=== PATIENT | female | born 1955 | race Caucasian/White ===

== ENCOUNTER 2019-08-22 18:16 | Emergency (ER) | payer MEDICARE, SELFPAY ==
[2019-08-22 18:20] VITALS: BP 138/85; PULSE 68; PULSE 69; RESP 14; TEMP 36.7; O2SAT 96; BMI 28.6
--- NOTE | 2019-08-22 18:55 | ED.VIS.GEN ---
History of Present Illness Chief Complaint: Abd Pain Informant: Patient Narrative: 64-year-old female presents with several weeks of nauseous feeling which is intermittent. Today she started having pain in her left lower flank which radiates down to the inguinal area. She has no history of kidney stones. She denies urinating frequency or dysuria. She denies hematuria. She has not been vomiting. She was seen at urgent care and sent here for evaluation. Past Medical History - Allergies and Home Meds Allergies/Adverse Reactions: Allergies fluoxetine Adverse Reaction (Verified 08/22/19 18:17) I SHAKE REAL BAD Primary Care Physician: Singh Baez DO [Primary Care Provider] - Matt Nunez MD [STAFF PHYSICIAN] - Prior records reviewed: Yes Lives: With Family Smoking Status: Unknown if ever smoked Alcohol: None Drugs: None Review of Systems General: Reports: Chills, Fever Eyes: Denies: Visual changes - bilaterally, Diplopia ENT: Denies: Rhinorrhea, Sore throat Cardiovascular: Denies: Chest pain, Palpitations Respiratory: Denies: Dyspnea, Cough, Dyspnea on exertion Gastrointestinal: Reports: Abdominal pain, Nausea. Denies: Diarrhea, Constipation Genitourinary: Denies: Dysuria, Hematuria, Frequency Musculoskeletal: Denies: Myalgias Skin: Denies: Rash Neurological: Denies: Headache Physical Exam Vital Signs/Narrative: Vital Signs Temp Pulse Resp BP Pulse Ox 08/22/19 18:20 98.0 F 69 14 138/85 H 96 General: Well nourished, Obese, No Acute Distress Head: Normocephalic, Atraumatic Eyes: Perrl, EOMI ENT: Moist mucous membranes Cardiovascular: Regular rate, Regular rhythm Respiratory: No distress, CTA bilaterally Abdomen: Soft, Tender - Mild tenderness to palpation left lower quadrant. Left-sided CVA tenderness as well. Back: CVA tenderness - Left Extremities: Nontender Skin: Normal color, No rash Neurological: Alert, Oriented x3 Psychological: Normal affect Diagnostic/Tx/Re-eval - Medical Decision Making Clinical Impression(s) from Imaging Studies Abdomen/Pelvis CT 08/22/19 21:25 IMPRESSION: 1. Mild left hydronephrosis and hydroureter secondary to a 4 mm stone in the proximal aspect of the left ureter. 2. Multiple additional left kidney stones 3. Colonic diverticulosis Electronically Signed: Andrei Santamaria MD at 22:17 EDT , Service support , Laboratory Data 08/22/19 08/22/19 08/22/19 19:17 19:17 19:25 WBC 8.2 RBC 4.90 Hgb 14.3 Hct 42.2 MCV 86.1 MCH 29.2 MCHC 33.9 RDW Std Deviation 40.5 RDW Coeff of Brenda 13.1 Plt Count 184 MPV 12.0 Immature Gran % (Auto) 0.200 Neut % (Auto) 48.2 Lymph % (Auto) 39.5 [place] % (Auto) 9.3 Eos % (Auto) 2.3 Baso % (Auto) 0.5 Absolute Neuts (auto) 3.9 Absolute Lymphs (auto) 3.22 Nucleated RBC % 0 Sodium 140 Potassium 3.3 L Chloride 106 Carbon Dioxide 30.0 Anion Gap 4 L BUN 17 Creatinine 0.90 Estim Creat Clear Calc 48.63 Est GFR (MDRD) Af Amer 80 Est GFR (MDRD) Non-Af 66 BUN/Creatinine Ratio 18.8 Glucose 85 Calcium 9.0 Urine Color Yellow Urine Clarity Clear Urine pH 6.0 Ur Specific [place] 1.020 Urine Protein Negative Urine Glucose (UA) Normal Urine Ketones Negative Urine Occult Blood 150 H Urine Nitrite Negative Urine Bilirubin Negative Urine Urobilinogen Normal Ur Leukocyte Esterase Negative Urine RBC 5-10 SEEN Urine WBC 0-5 SEEN Ur Squamous Epith Cells 0-5 SEEN Urine Bacteria RARE Urine Mucus 0 SEEN Presents with left flank pain. Her urinalysis is that she has hematuria. She has no sign of infection. Blood work is normal. CT abdomen pelvis without IV contrast shows ureteral stone. This will likely pass on its own. She is given Flomax, [place], Zofran for home. She was given urologist to follow-up with. She also was given strict return precautions. Patient amenable to discharge at this time. Pression: 1. 4 mm left ureteral stone 2. Hematuria 3. Left flank pain 4. Nausea ED Disposition - Plan for ED Patient: Disposition: Home or Assisted Living Diagnosis: Kidney stone on left side Instructions: ED Renal Stone w Colic Prescriptions: Tamsulosin HCl [Flomax] 0.4 mg PO DAILY #14 cap Prescription Printed Hydrocodone Bitart/Apap 5-325 [[place] 5MG-325MG] 1 tab PO Q6H PRN PRN 2 Days #12 tab PRN Reason: Pain Prescription Printed Ondansetron [Ondansetron Odt] 4 mg PO Q6H PRN PRN #14 tab.rapdis PRN Reason: Nausea Prescription Printed Referrals: Singh Baez DO [Primary Care Provider] - Matt Nunez MD [STAFF PHYSICIAN] -
[2019-08-22] MEDS: Ondansetron 4 MG/2 ML Vial IV (19:32)
[2019-08-22] MEDS: Morphine 4 MG/ML Syringe IV ×2 (19:32→20:45)
[2019-08-22 19:37] LABS: Absolute Lymphocyte Count 3.22 X10^3/uL (0.83-4.51); Absolute Neutrophil Count 3.9 X10^3/uL (2.0-7.7); Basophil# 0.04 X10^3/uL; Basophil% 0.5 % (0-1); Eosinophil# 0.19 X10^3/uL; Eosinophils% 2.3 % (0-5); Hematocrit 42.2 % (37-47); Hemoglobin 14.3 g/dL (12.0-15.0); Lymphocyte # 3.22 X10^3/ul (4.0); Lymphocyte % 39.5 % (19-41); Mean Corp Hgb Conc 33.9 g/dL (32-36); Mean Corpuscular Hgb 29.2 pg (27.0-32.0); Mean Corpuscular Volume 86.1 fL (81-99); Monocyte# 0.76 X10^3/uL; Monocyte% 9.3 % (0-10); NRBC Flagged by Analyzer 0 % (0-5); Neutrophil # 3.93 X10^3/uL (2.7-7.7); Neutrophil % 48.2 % (47-70); Platelet Count 184 K/mm3 (150-450); RBC Distribution Width CV 13.1 % (11.6-14.6); RBC Distribution Width SD 40.5 fl (35.1-43.9); White Blood Count 8.2 K/mm3 (4.4-11.0)
[2019-08-22 19:41] LABS: Mucous, Urine 0 SEEN /hpf (<or=2+)
[2019-08-22 19:54] LABS: Anion Gap 4 (5-15); BUN 17 mg/dL (7-18); BUN/Creat Ratio 18.8 RATIO (10-20); Chloride 106 mmol/L (98-107); EST Glomerular Filtration Rate 66 mL/min (>60); Est Glom Filt Rate - Afr Amer 80 mL/min (>60); Estimated Creatinine Clearance 48.63 ml/min; Glucose 85 mg/dL (74-106); Potassium 3.3 mmol/L (3.5-5.1); Sodium Level 140 mmol/L (136-145)
[2019-08-22 20:45] LABS: Color, Urine Yellow (Yellow); Glucose, Dipstick Normal (Normal); Ketone-Dipstick Negative (Negative); Leukocyte Esterase-Dipstick Negative /ul (Negative); Nitrite-Dipstick Negative (Negative); Occult Blood-Urine 150 /ul (Negative); Protein-Dipstick Negative (Negative); Urine Bilirubin Dipstick Negative (Negative); Urine Clarity Clear (Clear); Urine Urobilinogen Normal (Normal)
[2019-08-22 20:57] LABS: Bacteria RARE /hpf (None Seen); Red Blood Cells-Urine 5-10 SEEN /hpf (0-5); Squamous Epithelial Cells - UA 0-5 SEEN /hpf (5-10); White Blood Cells 0-5 SEEN /hpf (0-5)
--- NOTE | 2019-08-22 21:25 | CT_ITS ---
STUDY: CT ABDOMEN AND PELVIS WITHOUT CONTRAST REASON FOR EXAM: Female, 64 years old. LT FLANK PAIN RADIATING TO GROIN AND NAUSEA -- HX:HTN,HYPOTHYROID,APPENDECTOMY RADIATION DOSAGE (If Supplied By Facility): CTDIvol = ( 8.04 ) mGy, DLP = ( 409.93 ) mGycm TECHNIQUE: Transaxial images were obtained from the dome of the diaphragm to the symphysis pubis without oral contrast, and without intravenous contrast. Sagittal and coronal images were reconstructed. Individualized dose optimization techniques were used for this CT. COMPARISON: None. FINDINGS: There are chronic interstitial fibrotic changes of the lung bases. There is decreased attenuation of the liver consistent with steatosis. No intrahepatic biliary duct dilatation or liver mass. Normal gallbladder and extrahepatic biliary system. Normal spleen. Normal pancreas. Normal bilateral adrenal glands. Normal right kidney. Mild left hydronephrosis and hydroureter are present due to a 4 mm obstructing stone in the proximal aspect of the ureter located 5.6 cm distal to the UPJ. A 6 mm calyceal stone is present in the inferior pole of the left kidney adjacent to a 3 mm and 1 mm stone. A 1 mm punctate stone is present in the upper pole calyx of the left kidney. A 1 mm parenchymal stone is present in the medial aspect of the inferior pole of the left kidney. Normal visualized stomach. Normal small intestine. There are multiple colonic diverticula consistent with diverticulosis. No bowel dilatation or obstruction. No free air or free fluid. There is non-visualization of the appendix. There is diffuse atherosclerotic calcification of the abdominal aorta, without a demonstrated aneurysm. Normal inferior vena cava. Normal retroperitoneum. Normal urinary bladder. Normal abdominal wall. There are diffuse degenerative changes of the visualized lumbar spine. CT/Abdomen/Pelvis without Cont IMPRESSION: 1. Mild left hydronephrosis and hydroureter secondary to a 4 mm stone in the proximal aspect of the left ureter. 2. Multiple additional left kidney stones 3. Colonic diverticulosis Electronically Signed: Andrei Santamaria MD at 22:17 EDT , Service support ,
[2019-08-22 22:49] VITALS: BP 132/80; PULSE 82; RESP 16; O2SAT 99
== END 2019-08-22 22:49 | disposition home or self-care (01) ==
PROVIDERS: Emergency Provider Student in an Organized Health Care Education/Training Program; PCP Student in an Organized Health Care Education/Training Program
DX: N20.1 Calculus of ureter (principal); R31.9 Hematuria, unspecified; R10.9 Unspecified abdominal pain; R11.0 Nausea
CPT/HCPCS: 74176; 80048; 81001; 85025; 96374; 96375; 96376; 99284; A4216; J2405

== ENCOUNTER → 2019-12-23 15:16 | Outpatient (CLI) | payer MEDICARE, SELFPAY ==
--- NOTE | 2019-12-23 15:19 | CT_ITS ---
We are attempting to reach an attending provider to discuss findings. An addendum with communication details will be sent when the communication is complete. STUDY: CTA CHEST REASON FOR EXAM: Female, 64 years old. CP/RECENT COVID AND PNEUMONIA RADIATION DOSAGE (If Supplied By Facility): CTDIvol = ( 12.99 ) mGy, DLP = ( 430.82 ) mGycm TECHNIQUE: The examination was performed with the intravenous administration of IV 100ML ISOVUE 370. Post-processing of the angiographic images was performed, with multiplanar reformation and 3D reconstruction. Individualized dose optimization techniques were used for this CT. COMPARISON: None. FINDINGS: There are small segmental and subsegmental pulmonary emboli in the right middle and lower lobes. There are no additional pulmonary emboli. There is no evidence of thoracic aortic aneurysm or dissection. 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 There is subsegmental atelectasis noted in the lungs. There are no pulmonary infiltrates or pleural effusions. The central airways are patent. There is no pneumothorax. The heart and pericardium are within normal limits. There is no thoracic lymphadenopathy. There are no destructive osseous lesions. CT/CTA Chest W/WO Contrast IMPRESSION: Small segmental and subsegmental pulmonary emboli in the right middle and lower lobes. No additional pulmonary emboli. No evidence of thoracic aortic aneurysm or dissection. 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 If indicated, a dedicated CTA angiogram of the abdomen and pelvis can be performed. Subsegmental atelectasis in both lungs. No pulmonary infiltrates or pleural effusions. Electronically Signed: Marshall Donald, at 16:49 EST Tel , Service support ,
[2019-12-23 15:31] LABS: CREATININE FINGERSTICK 0.7 mg/dL (0.55-1.02)
== END ==
PROVIDERS: PCP Student in an Organized Health Care Education/Training Program; Referring Provider Nurse Practitioner Family; Visit Provider Nurse Practitioner Family
DX: R06.02 Shortness of breath (principal); R07.9 Chest pain, unspecified; Z86.19 Personal history of other infectious and parasitic diseases
CPT/HCPCS: 71275; Q9967

== ENCOUNTER 2019-12-23 17:54 | Emergency (ER) | payer MEDICARE, SELFPAY ==
[2019-12-23 17:55] VITALS: BP 161/85; PULSE 66; RESP 15; TEMP 36.3; O2SAT 96; BMI 27.6
[2019-12-23 17:57] VITALS: BP 161/85; PULSE 70; RESP 16; TEMP 36.3; O2SAT 97
--- NOTE | 2019-12-23 18:24 | EKG12_ITS ---
Test Reason : DYSRHYTHMIA Blood Pressure : / mmHG Vent. Rate : 062 BPM Atrial Rate : 062 BPM P-R Int : 140 ms QRS Dur : 092 ms QT Int : 408 ms P-R-T Axes : 037 015 038 degrees QTc Int : 414 ms Normal sinus rhythm Normal ECG Confirmed by DICK CORBIN, MERYL ([id number]), development editor SARAH GEE ([id number]) on 12/27/2019 8:47:00 AM Referred By: Usha Taylor Confirmed By:MERYL JENNINGS MD
--- NOTE | 2019-12-23 18:37 | ED.RN ---
no old ekgs in [facility]
[2019-12-23 18:43] LABS: Absolute Lymphocyte Count 2.98 X10^3/uL (0.83-4.51); Absolute Neutrophil Count 3.3 X10^3/uL (2.0-7.7); Basophil# 0.03 X10^3/uL; Basophil% 0.4 % (0-1); Eosinophil# 0.22 X10^3/uL; Hematocrit 45.1 % (37-47); Hemoglobin 15.1 g/dL (12.0-15.0); Lymphocyte # 2.98 X10^3/ul (4.0); Lymphocyte % 40.9 % (19-41); Mean Corp Hgb Conc 33.5 g/dL (32-36); Mean Corpuscular Hgb 28.9 pg (27.0-32.0); Mean Corpuscular Volume 86.2 fL (81-99); Mean Platelet Vol. 12.1 fl (6.2-12.0); Monocyte# 0.73 X10^3/uL; Neutrophil % 45.4 % (47-70); Platelet Count 230 K/mm3 (150-450); RBC Distribution Width SD 40.3 fl (35.1-43.9); Red Blood Count 5.23 M/mm3 (4.2-5.4); White Blood Count 7.3 K/mm3 (4.4-11.0)
[2019-12-23 18:44] LABS: NRBC Flagged by Analyzer 0 % (0-5)
[2019-12-23 18:52] LABS: Prothrombin Time (Protime)PT. 12.5 SECONDS (11.7-14.9)
[2019-12-23 18:53] LABS: Partial Thromboplast Time 22.3 Seconds (24.1-36.2)
[2019-12-23] MEDS: ALPRAZolam 0.5 MG Tablet PO (18:57)
--- NOTE | 2019-12-23 18:57 | ED.VISSUMM ---
- ER Visit Summary Date of Service: 12/23/19 Chief Complaint: Chest tightness History of Present Illness: The patient is a 64 F presents with chest tightness and shortness of breath that has been getting worse over the past several days. Patient had an outpatient CTA of the chest done today which showed small subsegmental pulmonary emboli in the right middle and right lower lobes. Patient admits to some pain in her left chest. Patient states nothing makes it better or worse. Patient also admits to some mild intermittent abdominal pain. Patient states her primary care physician referred her to the emergency department when he reviewed results of the CTA. CTA also shows that there is a 1.5 cm segment of possible dissection of the celiac artery. Physical Examination: Vital signs are stable. Patient is afebrile. Patient is in no acute distress. Oral mucosa is pink and moist. Neck is supple. Trachea is midline. There is no JVD. Heart was regular rate and rhythm. Lungs are clear and equal bilaterally. There is good respiratory effort noted. Abdomen is soft. Bowel sounds are normal. There is no tenderness. There is no rebound or guarding noted. Extremities are intact. There is no calf tenderness or edema. Test Results: EKG shows normal sinus rhythm with a rate of 62. There are no acute ST or T wave changes. CBC and comprehensive metabolic profile were within normal limits. Lipase was normal. PT with INR and PTT were normal. Troponin was normal. CTA of the abdomen pelvis was obtained. There is no evidence of arterial dissection specifically, the celiac artery. This was interpreted by the radiologist and reviewed by myself. Emergency Department Course and Treatment: Patient was feeling very anxious and was given a dose of Xanax here. Patient complained of a headache. Patient was given a dose of morphine. Patient was given a dose of Eliquis. Patient was also given a liter of IV fluids. Patient was given a prescription for Eliquis. Patient was instructed to follow-up with her primary care physician in 5 to 7 days. Patient understood and was agreeable with the plan. All questions were answered. Disposition: Discharge home Impression: Pulmonary embolism This note was generated with IM-Senseation software. It may contain incorrect words, spelling, and punctuation that were not noted in review of the chart prior to signing ED Disposition - Plan for ED Patient: Disposition: Home or Assisted Living Diagnosis: Pulmonary embolism Instructions: Pulmonary Embolism Prescriptions: Apixaban [Eliquis] 5 mg PO BID #74 tab Prescription Printed Referrals: Singh Baez DO [Primary Care Provider] - 5-7 Days
[2019-12-23 19:06] LABS: ALB/GLOB Ratio 0.9 RATIO (0.9-2.4); AST(SGOT) 19 U/L (15-37); Alanine Aminotransfer ALT/SGPT 34 U/L (13-56); Albumin, Serum 3.7 g/dL (3.2-5.0); Alkaline Phosphatase 108 U/L (45-117); Anion Gap 7 (5-15); BUN 15 mg/dL (7-18); BUN/Creat Ratio 15.4 RATIO (10-20); Calcium,Total 8.9 mg/dL (8.5-10.1); Chloride 104 mmol/L (98-107); Creatinine, Serum 0.97 mg/dL (0.55-1.02); EST Glomerular Filtration Rate 61 mL/min (>60); Est Glom Filt Rate - Afr Amer 74 mL/min (>60); Estimated Creatinine Clearance 45.12 ml/min; Globulin 4.1 g/dL (2.2-4.2); Glucose 116 mg/dL (74-106); Lipase 155 U/L (73-393); Potassium 3.5 mmol/L (3.5-5.1); Protein, Total 7.8 g/dL (6.4-8.2); Sodium Level 141 mmol/L (136-145)
[2019-12-23] MEDS: Morphine 2 MG/ML Syringe IV (19:26)
--- NOTE | 2019-12-23 19:38 | CT_ITS ---
STUDY: CTA ABDOMEN AND PELVIS WITHOUT CONTRAST REASON FOR EXAM: Female, 64 years old. Abnormal CTA chest. Question dissection of the celiac artery. RADIATION DOSAGE (If Supplied By Facility): CTDIvol = ( 20.86 ) mGy, DLP = ( 743.62 ) mGycm TECHNIQUE: Transaxial images were obtained through the abdomen and pelvis without oral contrast, and with intravenous contrast. Sagittal and coronal images were reconstructed. Individualized dose optimization techniques were used for this CT. COMPARISON: CTA of the chest dated 12/23/19 FINDINGS: The lung bases are clear. The heart is normal in size. There are no calcified gallstones present. The liver, spleen, pancreas, adrenal glands and kidneys are within normal limits. There is no bowel obstruction or inflammation. The patient is status post appendectomy. There is no abdominal or pelvic free air, free fluid or lymphadenopathy. There is no evidence of abdominal aortic aneurysm or dissection. The celiac artery is patent. There is no evidence of dissection. The superior mesenteric artery is patent. There is no evidence of dissection. The bilateral renal arteries are patent. There is no evidence of dissection. The inferior mesenteric artery is patent. There is no evidence of dissection. The bilateral common iliac arteries, internal iliac arteries, external iliac arteries and common femoral arteries are patent and normal in caliber. There are no destructive osseous lesions. CT/CT ANGIO ABD&PEL W/O&W/DYE IMPRESSION: Normal CT angiogram of the abdomen and pelvis. No evidence of celiac artery dissection as suggested on the earlier CT angiogram of the chest. The findings on the chest CT were likely artifactual in nature. No acute abdominal or pelvic pathology. Electronically Signed: Marshall Donald, at 20:24 EST Tel , Service support ,
[2019-12-23] MEDS: 0.9% Normal Saline 1,000 ML 999 ML IV (21:17)
[2019-12-23 21:18] VITALS: BP 119/60; PULSE 56; RESP 16; O2SAT 94
[2019-12-23] MEDS: APIXABAN 5 MG TABLET 10 MG PO (21:59)
[2019-12-23 22:18] VITALS: BP 124/77; PULSE 78; RESP 16; O2SAT 94
== END 2019-12-23 22:38 | disposition home or self-care (01) ==
PROVIDERS: Emergency Provider Emergency Medicine; PCP Student in an Organized Health Care Education/Training Program
DX: I26.99 Other pulmonary embolism without acute cor pulmonale (principal); R07.89 Other chest pain; R06.02 Shortness of breath; Z86.19 Personal history of other infectious and parasitic diseases
CPT/HCPCS: 71275; 74174; 80053; 83690; 84484; 85025; 85610; 85730; 93005; 96374; 99285; J7030; Q9967; A4216

== ENCOUNTER → 2019-12-27 14:54 | Outpatient (CLI) | payer MEDICARE, SELFPAY ==
[2019-12-23 17:55] VITALS: BMI 27.6
--- NOTE | 2019-12-27 14:58 | ECHOD_ITS ---
Reason For Study: SOB Procedure This was a 2D Doppler, Color Flow transthoracic echocardiogram. The study was technically difficult. Exam performed in department. Left Ventricle Normal LV size. Left ventricular systolic function is normal. The estimated ejection fraction is 65 %. No evidence for diastolic dysfunction. No regional wall motion abnormalities noted. Right Ventricle Normal RV size. Normal systolic function. Atria The left atrium is mildly enlarged. Normal right atrium. No doppler evidence for ASD. Mitral Valve There is no mitral annular calcification. Mild diffuse mitral valve thickening. Mild (1+) mitral valve insufficiency. Tricuspid Valve Normal tricuspid valve. Mild tricuspid valve insufficiency. Right ventricular systolic pressure estimated to be 31 mmHg. Aortic Valve Trisinus/trileaflet aortic valve. Normal aortic valve. Pulmonic Valve The pulmonic valve is not well visualized. Trivial pulmonic valve insufficiency. Great Vessels Normal sized aortic root. Pericardium/Pleural No pericardial effusion. MMode/2D Measurements & Calculations LVIDd: 4.0 cm IVSd: 1.2 cm Ao root diam: 2.9 cm LVIDs: 2.6 cm LVPWd: 1.2 cm RVDd: 3.4 cm FS: 33.6 % LAV(MOD-bp): 51.6 ml LA A4 area: 18.3 cm2 LA dimension(2D): 3.8 cm LAV(MOD-bp) Indexed: 30.4 ml/m2 LAV(MOD-sp2): 51.5 ml LAV(MOD-sp4): 51.5 ml RA A4 area: 14.4 cm2 Time Measurements MV dec time: 0.18 sec Doppler Measurements & Calculations MV E max julius: 88.3 cm/sec Lat Peak E' Julius: 11.5 cm/sec Med Peak E' Julius: 6.9 cm/sec MV A max julius: 75.1 cm/sec E/E' lat: 7.7 E/E' med: 12.8 MV E/A: 1.2 Ao V2 max: 118.8 cm/sec LV V1 max: 110.7 cm/sec PA V2 max: 101.0 cm/sec Ao max P.6 mmHg LV V1 max P.9 mmHg TR max julius: 263.6 cm/sec TR max P.8 mmHg Interpretation Summary The study was technically difficult. Left ventricular systolic function is normal. The estimated ejection fraction is 65 %. The left atrium is mildly enlarged. Mild diffuse mitral valve thickening. Mild (1+) mitral valve insufficiency. Mild tricuspid valve insufficiency. Trivial pulmonic valve insufficiency. Right ventricular systolic pressure estimated to be 31 mmHg. No evidence for diastolic dysfunction. Ordering Physician: Usha Taylor Referring Physician: Singh Baez Performed By: Sosa Landon RDCS, RVT
== END ==
PROVIDERS: PCP Student in an Organized Health Care Education/Training Program; Referring Provider Nurse Practitioner Family; Visit Provider Nurse Practitioner Family
DX: R07.9 Chest pain, unspecified (principal); R06.02 Shortness of breath
CPT/HCPCS: 93306

== ENCOUNTER 2023-02-16 20:39 | Emergency (ER) | payer MEDICARE, SELFPAY ==
[2023-02-16 20:40] VITALS: BP 173/75; PULSE 60; RESP 18; TEMP 36.4; O2SAT 98; BMI 28.0
--- OUTSIDE RECORDS SUMMARY | 2023-02-16 21:32 | XMS RPT_ITS | CCD ---
Author Name Unknown Address [address] [place] [address] Organization [facility] Care Team Providers Care Oceanographer Physical Name Role Phone DERIK MIMS Unavailable Unavailable BAEZ, SINGH Unavailable Unavailable BASIL STANLEY Admitting Unavailable BASIL STANLEY Attending Unavailable BASIL STANLEY Primary Care Unavailable BAEZ, SINGH DO Consulting Unavailable PROVIDER, UNKNOWN Consulting Unavailable Baez Singh MAURICIO Primary Care Provider Baez DOSingh Primary Care Provider Baez DO Singh Atif Primary Care Provider SCARLETT SHEEHAN Referring Unavailable BAEZ, SINGH L Primary Care Unavailable SCARLETT SHEEHAN Referring Unavailable BAEZ, SINGH Atif Primary Care Unavailable Baez DO, Singh tAif Primary Care Provider BELGICA ENRIQUEZ Referring Unavailable BAEZ, SINGH L Primary Care Unavailable BAEZ, SINGH L Primary Care Unavailable KAYLEE KUMARI Attending Unavailable KAYLEE KUMARI Referring Unavailable BAEZ, SINGH L Primary Care Unavailable BAEZ, SINGH L Primary Care Unavailable BAEZ, SINGH L Referring Unavailable BAEZ, SIGNH L Primary Care Unavailable BAEZ, SINGH L Attending Unavailable BAEZ, SINGH L Primary Care Unavailable BELGICA ENRIQUEZ Attending Unavailable BAEZ, SINGH L Primary Care Unavailable ERIKA SINHA Attending Unavailbaljit e BAEZ, SINGH L Primary Care Unavailable BAEZ, SINGH L Referring Unavailable BAEZ, SINGH L Primary Care Unavailable KAYLEE KUMARI Attending Unavailable BAEZ, SINGH L Primary Care Unavailable KAYLEE KUMARI Referring Unavailable BAEZ, SINGH L Primary Care Unavailable BAEZ, SINGH L Referring Unavailable BAEZ, SINGH L Primary Care Unavailable SINGH BAEZ Attending Unavailable BAEZSINGH Primary Care Unavailable MARGOTHVIRAJ Referring Unavailable BAEZSINGH L Primary Care Unavailable BAEZSINGH Primary Care Unavailable SINGH BAEZ Attending Unavailable BAEZSINGH Attending Unavailable BAEZSINGH Primary Care Unavailable KAYLEE KUMARI Referring Unavailable BAEZSINGH L Primary Care Unavailable BELGICA ENRIQUEZ Attending Unavailable BAEZSINGH Primary Care Unavailable SEDRICK SINHA II Attending Unavailabl e BAEZSINGH Primary Care Unavailable Allergies Allergy Classification Reported Allergen(s) Allergy Type Date of Onset Reaction(s) Facility (20 sources) FLUoxetine; Translations: [FLUOXETINE] Drug Allergy 0 Other: See Comments [facility] Work Phone: (20 sources) Seasonal allergy; Translations: [SEASONAL ALLERGIES] Allergy to substance Other: See Comments [facility] Medications Current Medications Medication Drug Class(es) Dates Sig (Normalized) Sig (Original) cyclobenzaprine hydrochloride 10 mg oral tablet (4 sources) Muscle Relaxant Start: 10-02-2021 End: 11-01-2021 take 1 tablet by mouth every eight hours as needed cyclobenzaprine (FLEXERIL) 10 mg tablet Take 1 tablet by mouth three times daily as needed for muscle spasm. 30 tablet 0 10/02/2021 11/01/2021 Active Completed/Discontinued Medications Medication Drug Class(es) Dates Sig (Normalized) Sig (Original) [id number] 200 actuat albuterol 0.09 mg/actuat metered dose inhaler (20 sources) beta2-Adrenergic Agonist Start: 02-09-2020 take 2 puff(s) by inhalation every four hours as needed for wheezing albuterol HFA (VENTOLIN HFA) 90 mcg/actuation inhaler Inhale 2 Puffs as instructed every 4 hours as needed for wheezing/shortnes s of breath. 8 g 2 05/17/2021 Active Problems Active Problems Problem Classification Problem Date Documented Date Episodic/Chronic Acute bronchitis (1 source) Acute bronchitis; Translations: [Acute bronchitis, unspecified] Episodic Anxiety disorders (20 sources) Anxiety; Translations: [Other specified anxiety disorders] Onset: 01-23-2021 01-23-2021 Chronic Blindness and vision defects (20 sources) Subjective visual disturbance; Translations: [Unspecified subjective visual disturbances] Onset: 11-19-2018 11-19-2018 Episodic Cardiac dysrhythmias (20 sources) Supraventricular tachycardia; Translations: [Supraventricular tachycardia] Onset: 01-23-2021 01-23-2021 Chronic Disorders of lipid metabolism (20 sources) Hyperlipidemia; Translations: [Hyperlipidemia, unspecified] Onset: 06-21-2015 06-21-2015 Chronic Essential hypertension (20 sources) Essential hypertension; Translations: [Essential (primary) hypertension] Onset: 12-30-2014 12-30-2014 Chronic Headache; including migraine (2 sources) Headache; Translations: [Headache] Onset: 07-21-2019 Episodic Heart valve disorders (20 sources) Mitral valve prolapse; Translations: [Nonrheumatic mitral (valve) prolapse] Onset: 09-15-2018 09-24-2018 Chronic Immunizations and screening for infectious disease (1 source) Encounter for observation for suspected exposure to other biological agents ruled out; Translations: [Encounter for observation for suspected exposure to other biological agents ruled out] Onset: 07-21-2019 Episodic Miscellaneous mental health disorders (20 sources) Primary insomnia; Translations: [Primary insomnia] Onset: 04-24-2021 04-24-2021 Chronic Nonspecific chest pain (1 source) Chest pain; Translations: [Other chest pain] Episodic Nutritional deficiencies (20 sources) Vitamin D deficiency; Translations: [Vitamin D deficiency, unspecified] Onset: 04-24-2021 04-24-2021 Chronic Osteoarthritis (20 sources) Unilateral post-traumatic osteoarthritis, right knee; Translations: [Osteoarthrosis, localized, secondary, lower leg] Onset: 05-31-2015 05-31-2015 Chronic Other circulatory disease (20 sources) Disorder of carotid artery; Translations: [Disorder of arteries and arterioles, unspecified] Onset: 01-09-2015 02-04-2021 Chronic Other connective tissue disease (20 sources) Fibromyalgia; Translations: [Fibromyalgia] 06-20-2015 Episodic Other connective tissue disease (2 sources) Bilateral plantar fasciitis; Translations: [Plantar fascial fibromatosis] 10-24-2022 Episodic Other infections; including parasitic (20 sources) Post-viral disorder; Translations: [[id number] condition] Onset: 04-16-2020 04-16-2020 Chronic Other injuries and conditions due to external causes (1 source) Foreign body in conjunctival sac, left eye, initial encounter; Translations: [Foreign body in conjunctival sac] 10-22-2022 Episodic Other nervous system disorders (20 sources) Carpal tunnel syndrome of left wrist; Translations: [Carpal tunnel syndrome, left upper limb] Onset: 07-02-2015 07-02-2015 Chronic Other nervous system disorders (1 source) Tarsal tunnel syndrome; Translations: [Tarsal tunnel syndrome, unspecified lower limb] 10-24-2022 Chronic Other nervous system disorders (1 source) Burning sensation; Translations: [Other disturbances of skin sensation] 09-12-2022 Episodic Other nervous system disorders (1 source) Tingling of skin; Translations: [Paresthesia of skin] 09-12-2022 Episodic Other non-traumatic joint disorders (3 sources) Chronic pain of left upper limb; Translations: [Pain in left shoulder] Episodic Other non-traumatic joint disorders (3 sources) Instability of left shoulder joint; Translations: [Other instability, left shoulder] Episodic Other non-traumatic joint disorders (1 source) Shoulder pain; Translations: [Pain in left shoulder] Episodic Other screening for suspected conditions (not mental disorders or infectious disease) (8 sources) Patient encounter status; Translations: [Encounter for screening for cardiovascular disorders] Onset: 12-04-2021 Episodic Other upper respiratory infections (1 source) Acute sinusitis; Translations: [Acute sinusitis, unspecified] Episodic Spondylosis; intervertebral disc disorders; other back problems (20 sources) Displacement of cervical intervertebral disc; Translations: [Other cervical disc displacement, unspecified cervical region] Onset: 06-20-2015 06-20-2015 Chronic Spondylosis; intervertebral disc disorders; other back problems (2 sources) Neck pain; Translations: [Cervicalgia] Episodic Thyroid disorders (20 sources) Hypothyroidism; Translations: [Hypothyroidism, unspecified] Onset: 06-20-2015 06-20-2015 Chronic Unclassified (1 source) Acute cough; Translations: [Acute cough] Onset: 02-15-2022 Past or Other Problems Problem Classification Problem Date Documented Da te Episodic/Chronic Cardiac dysrhythmias (20 sources) Palpitations; Translations: [Palpitations] Onset: 09-24-2018 09-24-2018 Episodic Conditions associated with dizziness or vertigo (20 sources) Dizziness; Translations: [Dizziness and giddiness] Onset: 09-24-2018 09-24-2018 Episodic Malaise and fatigue (20 sources) Fatigue; Translations: [Other fatigue] Onset: 04-16-2020 04-16-2020 Episodic Mycoses (20 sources) Onychomycosis; Translations: [Tinea unguium] Onset: 06-22-2020 06-22-2020 Episodic Other connective tissue disease (20 sources) Pain in left arm; Translations: [Pain in left arm] Onset: 12-12-2014 Episodic Other connective tissue disease (20 sources) Pain of right upper arm; Translations: [Pain in right upper arm] Onset: 02-07-2015 02-07-2015 Episodic Other connective tissue disease (1 source) Plantar fascial fibromatosis; Translations: [Plantar fasciitis, bilateral] Onset: 10-24-2022 Episodic Other eye disorders (20 sources) Tear film insufficiency; Translations: [Dry eye syndrome of bilateral lacrimal glands] Onset: 11-19-2018 11-19-2018 Episodic Other infections; including parasitic (20 sources) Personal history of other infectious and parasitic diseases; Translations: [History of COVID-19] Onset: 04-24-2021 04-24-2021 Episodic Other lower respiratory disease (20 sources) Dyspnea; Translations: [Shortness of breath] Onset: 09-24-2018 09-24-2018 Episodic Other nervous system disorders (20 sources) Numbness of upper limb; Translations: [Anesthesia of skin] Onset: 12-12-2014 Episodic Other nervous system disorders (11 sources) Paresthesia of foot ; Translations: [Paresthesia of skin] Onset: 09-17-2022 09-16-2022 Episodic Other nervous system disorders (2 sources) Paresthesia of skin; Translations: [Paresthesia of foot, bilateral] Onset: 09-12-2022 Episodic Other nervous system disorders (1 source) Anesthesia of skin; Translations: [Numbness and tingling of both feet] Onset: 09-12-2022 Episodic Other non-traumatic joint disorders (20 sources) Pain in right knee; Translations: [Pain in joint, lower leg] Onset: 05-31-2015 05-31-2015 Episodic Pulmonary heart disease (20 sources) Pulmonary embolism; Translations: [Multiple subsegmental pulmonary emboli without acute cor pulmonale] Onset: 04-16-2020 04-16-2020 Episodic Substance-related disorders (20 sources) Marijuana user; Translations: [Cannabis use, unspecified, uncomplicated] Onset: 08-09-2020 08-09-2020 Episodic Results Test Name Value Interpretation Reference Range Facil ity Vital Signs Date Time Vital Sign Value Performing Clinician Marsha rivero 12-19-2022 10:33-0500 Body temperature 97.59 [degF] Singh Baez DO Work Phone: [facility] 12-19-2022 10:33-0500 Body weight 71.22 kg Singh Baez DO Work Phone: [facility] 12-19-2022 10:33-0500 Diastolic blood pressure 82 mm[Hg] Singh Baez DO Work Phone: [facility] 12-19-2022 10:33-0500 Heart rate 64 /min Singh Baez DO Work Phone: [facility] 12-19-2022 10:33-0500 Respiratory rate 16 /min Singh Baez DO Work Phone: [facility] 12-19-2022 10:33-0500 Systolic blood pressure 138 mm[Hg] Singh Baez DO Work Phone: [facility] 09-16-2022 13:48-0400 Body temperature 97.7 [degF] Singh Baez DO Work Phone: [facility] 09-16-2022 13:48-0400 Body weight 68.49 kg Singh Baez DO Work Phone: [facility] 09-16-2022 13:48-0400 Diastolic blood pressure 80 mm[Hg] Singh Baez DO Work Phone: [facility] 09-16-2022 13:48-0400 Heart rate 68 /min Singh Baez DO Work Phone: [facility] 09-16-2022 13:48-0400 Respiratory rate 20 /min Singh Baez DO Work Phone: [facility] 09-16-2022 13:48-0400 Systolic blood pressure 120 mm[Hg] Singh Baez DO Work Phone: [facility] 03-17-2022 15:58-0500 Body temperature 97.11 [degF] Singh Baez DO Work Phone: [facility] 03-17-2022 15:58-0500 Body weight 73.03 kg Singh Baez DO Work Phone: [facility] 03-17-2022 15:58-0500 Diastolic blood pressure 80 mm[Hg] Singh Baez DO Work Phone: [facility] 03-17-2022 15:58-0500 Heart rate 60 /min Singh Baez DO Work Phone: [facility] 03-17-2022 15:58-0500 Respiratory rate 20 /min Singh Baez DO Work Phone: [facility] 03-17-2022 15:58-0500 SaO2% (BldA) [Mass fraction] 98 % Singh Baez DO Work Phone: [facility] 03-17-2022 15:58-0500 Systolic blood pressure 122 mm[Hg] Singh Baez DO Work Phone: [facility] 11-18-2021 15:05-0400 Body weight 70.31 kg Singh Baez DO Work Phone: [facility] 11-18-2021 15:05-0400 Diastolic blood pressure 78 mm[Hg] Singh Baez DO Work Phone: [facility] 11-18-2021 15:05-0400 Heart rate 66 /min Singh Baez DO Work Phone: [facility] 11-18-2021 15:05-0400 Respiratory rate 20 /min Singh Baez DO Work Phone: [facility] 11-18-2021 15:05-0400 Systolic blood pressure 134 mm[Hg] Singh Baez DO Work Phone: [facility] Encounters Encounter Date Encounter Type Care Provider Facility Start: 01-19-2023 End: 01-19-2023 ambulatory SINGH BAEZ Facility:[facility] Start: 01-19-2023 End: 01-19-2023 Patient encounter procedure Erika T Scott OD Work Phone: Optometry Procedures Date Procedure Procedure Detail Performing Clinician Start: 10-24-2022 Radex foot complete minimum 3 views Kaylee Kumari Work Phone: Start: 10-22-2022 Removal fb eye conju nctival superficial Sedrick Sinha OD Work Phone: Start: 10-14-2022 Arthrocentesis aspir &/inj major jt/bursa w/o us Belgica Enriquez MD Work Phone: Start: 12-16-2021 Arthrocentesis aspir &/inj major jt/bursa w/o us Ezio Pinto MD Work Phone: Start: 12-09-2021 Mri any jt upper ext remity w/o contrast matrl Singh Baez DO Work Phone: Start: 12-04-2021 Us breast uni real t pradip with image limited Scarlett Sheehan MD Work Phone: Start: 11-12-2021 Lipid 1996 panel - S don or Plasma Sedrick Sinha II, OD Work Phone: Start: 10-22-2021 Us breast uni real t pradip with image limited Maryellen Zurawick HYDRAULIC ENGINEER.TRAFFIC [employer]IEUTENANT Work Phone: Start: 10-22-2021 MATHEUS DIAG W SULAIMAN LT Linda on Zurawick HYDRAULIC ENGINEER.TRAFFIC [employer]IEUTENANT Work Phone: Start: 06-17-2021 Myocardial spect mul tiple studies Bhavya Luevano MD Work Phone: Start: 04-22-2021 Mammography Singh weber DO Work Phone: Start: 01-19-2021 Adult depression scr eening assessment Singh Baez DO Work Phone: Start: 06-19-2014 Colonoscopy Singh weber DO Work Phone: Plan of Treatment Date Care Activity Detail Author Start: 11-12-2026 Lipid 1996 panel - S don or Plasma Lipid Screening [facility] Start: 11-12-2026 LIPID SCREEN LIPID SCREEN [facility] Start: 12-08-2025 Diabetes Screening Diabetes Screenin g [facility] Start: 09-13-2025 DIABETES SCREEN DIABETES SCREEN [facility] Start: 09-13-2025 Diabetes Screening Diabetes Screenin g [facility] Start: 04-11-2025 DIABETES SCREEN DIABETES SCREEN [facility] Start: 11-12-2024 DIABETES SCREEN DIABETES SCREEN [facility] Start: 06-19-2024 Colonoscopy COLONOSCOPY [facility] Start: 06-19-2024 COLORECTAL CANCER SCREENING COLORECTAL CANCER SCREENING [facility] Start: 04-23-2024 DIABETES SCREEN DIABETES SCREEN [facility] Start: 03-28-2024 LIPID SCREEN LIPID SCREEN [facility] Start: 12-20-2023 Annual PCP Team Lead Software Test Engineer umu Disease Visit Annual PCP Team Chronic Disease Visit [facility] Start: 09-17-2023 ANNUAL PCP TEAM SALESPERSON MEN'S HATS UMU DISEASE VISIT ANNUAL PCP TEAM CHRONIC DISEASE VISIT [facility] Start: 08-09-2023 Influenza vaccination Influenza Vacc ine (#1) [facility] Immunizations Immunization Date Immunization Notes Care Provider Lani vasquez 11-14-2016 influenza virus vaccine, unspecified formulation Sedrick Sinha II, OD Work Phone: [facility] Payers Date Payer Category Payer Unknown [employer] BLUE [employer] O [id number] 2021-Present [phone] [address] [place] [address] O [id number] 2021 Unknown [id number] 2021 Unknown [id number] 2016 Self-pay 1955 Unknown [id number] Medicare [id number] Social History Date Type Detail Facility Start: 11-30-2014 End: 11-04-2021 Tobacco smoking status NHIS Never smoked tobacco [facility] Start: 04-23-2021 End: 01-19-2023 Alcohol intake Current non-drinker of alcohol (finding) [facility] Start: 12-28-2019 End: 11-17-2021 History SDOH Alcohol Frequency 1 [facility] Start: 12-28-2019 History SDOH Alcohol Std Drinks 98 [facility] Start: 12-28-2019 End: 12-30-2019 History SDOH Social Connections Phone 5 [facility] Start: 12-28-2019 History SDOH Social Connections Nondenominational 3 [facility] Start: 12-28-2019 History SDOH Physical Activity DPW 0 [facility] Start: 12-28-2019 End: 11-17-2021 History SDOH Stress 2 [facility] Start: 12-27-2019 Education 15 [facility] Start: 11-30-2014 Tobacco Comment Parents smoked in childhood home. SPouse non-smoker. [facility] Start: 1955 Sex Assigned At Not on file [facility] Start: 04-12-2021 End: 12-16-2021 Exposure to SARS-CoV-2 (event) Not sure [facility] Start: 1955 Sex Assigned At Female [facility] Start: 11-30-2014 End: 11-04-2021 Tobacco use and exposure Smokeless tobacco non-user [facility] Work Phone: Start: 11-04-2021 Tobacco Comment Parents smoked in childhood home. Spouse non-smoker. [facility] Start: 10-27-2021 End: 11-06-2021 Exposure to SARS-CoV-2 (event) Unable to assess [facility] Start: 12-27-2019 End: 01-14-2020 History of Social function [facility] Start: 12-27-2019 End: 01-14-2020 Social connection and isolation panel [facility] Do you belong to any clubs or organizations such as taoist groups, unions, fraternal or athletic groups, or school groups? Yes [facility] Are you now , , , , never or living with a partner? [facility] How often to you hav e a drink containing alcohol? Never [facility] How many standard dr inks containing alcohol do you have on a typical day? Patient refused [facility] Do you feel stress - tense, restless, nervous, or anxious, or unable to sleep at night because your mind is troubled all the time - these days [OSQ] Only a little [facility] (I/We) worried joanmilena er (my/our) food would run out before (I/we) got money to buy more. Sometimes true [facility] Work Phone: The food that (I/we) bought just didn't last, and (I/we) didn't have money to get more. Never true [facility] Work Phone: In the past 12 month s, was there a time when you were not able to pay the mortgage or rent on time? No [facility] Start: 01-20-2021 Gender identity Identifies as female gender (finding) [facility] Start: 06-16-2021 Sexual orientation Heterosexual (finding) [facility] Clinical Notes 08-09-2020 to 02-03-2023 Patient InstructionsCoErika zuniga OD - 01/19/2023 4:41 PM Belgica Sam MD - 01/13/2023 11:22 AM Singh Courtney DO - 12/19/2022 11:08 AM ESTPatient Instructions Note Date & Type Note Facility 02-03-2023 Note Patient Outreach (DEON TNAV) VANESA FERGUSON ([id number]) 1955 F Date Time Provider Department 02/03/23 BHAVYA VALLES ([facility]) [employer] During your visit today, we recorded the following information about you: Bhavya Valles 02/03/2023 7:41 AM Signed POPULATION HEALTH NAVIGATION OUTREACH Action/FYI Past due for mammogram. LVM, mychart message sent Patient Identified by Name and : NO Outreach Outcome/Action Unable to reach patient: Left message MyChart message sent Did you use a PCP flex slot to schedule this appointment? 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 / Plan: [employer] HMO / Product Type: HMO / Care Gap Reviewed:: Breast Cancer screening Reminder: Reminder note to check Health Maintenance for items below Health Maintenance items due: DTaP,Tdap,Td Vaccine(1 - Tdap) Never done Shingrix Vaccine(1 of 2) Never done RSV Vaccine(1 - 1-dose 60+ series) Never done Pneumococcal Vaccine: 65+(1 of 1 - PCV) Never done Mammogram Screening due on 04/22/2022 Navigation Signature: Bhavya Valles February 03, 2023 7:40 AM Allergies As of Date: 02/03/2023 Noted Allergy Reaction FLUOXETINE 03/01/2019 14 - Other: See Comments Comments: Tremor SE Only with high doses such as 40 mg SEASONAL ALLERGIES 12/31/2018 14 - Other: See Comments Comments: Sinuses Date Reviewed: 01/19/2023 Reviewed by: Erika Sinha OD - Fully Assessed Reason for Visit: Population Health Navigation Outreach [3910] Cmt: Kayla care gap Prescriptions as of 02/03/2023 - FLUoxetine (PROZAC) 10 mg capsule Take 1 capsule by mouth once daily. - meloxicam (MOBIC) 15 mg tablet Take 1 tablet by mouth once daily. for pain. Take with food. - levothyroxine (SYNTHROID) 100 mcg tablet Take 1 tablet PO daily - traZODone (DESYREL) 50 mg tablet Take 1 tablet by mouth daily at bedtime. - terbinafine HCl (LAMISIL) 250 mg tablet Take 1 tablet by mouth once daily. - levalbuterol tartrate HFA 45 mcg/actuation inhaler Inhale 1-2 Puffs as instructed every 4 hours as needed for wheezing/shortness of breath. - fluticasone propionate (FLOVENT DISKUS) 100 mcg/actuation inhaler Inhale 1 Puff as instructed twice daily. For cough - benzonatate (TESSALON PERLES) 100 mg capsule Take 1 capsule by mouth three times daily as needed for cough. - etodolac (LODINE) 400 mg tablet Take 1 tablet by mouth twice daily. - traMADol (ULTRAM) 50 mg tablet Take 1 tablet by mouth twice daily as needed for pain. - albuterol HFA (VENTOLIN HFA) 90 mcg/actuation inhaler Inhale 2 Puffs as instructed every 4 hours as needed for wheezing/shortness of breath. - FLUOXETINE 10 mg tablet TAKE 1 TABLET ONCE DAILY. - atenolol (TENORMIN) 50 mg tablet Take 1 tablet by mouth once daily. - omeprazole (PRILOSEC) 20 mg capsule Take 1 capsule by mouth once daily for 28 days. - hydrOXYzine HCl (ATARAX) 25 mg tablet Take 1 tablet by mouth every 6 hours as needed for anxiety. - aspirin, enteric coated (ASPIRIN, ENTERIC COATED) 81 mg EC tablet Take 1 tablet by mouth once daily. - B Complex Vitamins capsule Take 1 capsule by mouth once daily. Problem List As Of Date 02/03/2023 Noted Resolved Arm numbness left [R20.0] 12/12/2014 Left arm pain [M79.602] 12/12/2014 Essential hypertension [I10] 12/30/2014 Pain of right upper arm [M79.621] 02/07/2015 Chronic pain of right knee [M25.561, G89.29] 05/31/2015 Post-traumatic osteoarthritis of right knee [M1*05/31/2015 Hypertension [I10] 06/20/2015 Hypothyroid [E03.9] 06/20/2015 Carotid artery disease (HCC) [I77.9] 01/09/2015 Herniated disc, cervical [M50.20] 06/20/2015 Lumbar herniated disc [M51.26] 06/20/2015 Fibromyalgia [M79.7] Hyperlipidemia [E78.5] 06/21/2015 Left carpal tunnel syndrome [G56.02] 07/02/2015 MVP (mitral valve prolapse) [I34.1] 09/15/2018 Non-rheumatic mitral regurgitation, mild [I34.0]09/24/2018 SOB (shortness of breath) [R06.02] 09/24/2018 Palpitations, rare, do not affect her daily lif*09/24/2018 Dizziness [R42] 09/24/2018 Subjective visual disturbance [H53.10] 11/19/2018 Dry eye syndrome of both eyes [H04.123] 11/19/2018 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] 11/19/2018 Osteoarthritis of spine with radiculopathy, cer*02/15/2019 Multiple subsegmental pulmonary emboli without *04/16/2020 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 [facility] 02-03-2023 Note HNO ID: [id number] Author: Bhavya Valles Service: ? Author Type: ? Type: Progress Notes Filed: 02/03/2023 7:41 AM Note Text: POPULATION HEALTH NAVIGATION OUTREACH Action/ Past due for mammogram. LVM, [employer] message sent Patient Identified by Name and : NO Outreach Outcome/Action Unable to reach patient: Left message [employer] message sent Did you use a PCP flex slot to schedule this appointment? N/A Reason for Outreach Care Gap or Scheduling/Wellness visits Payer: Payor: [employer] / Plan: [employer] HMO / Product Type: HMO / Care Gap Reviewed:: Breast Cancer screening Reminder: Reminder note to check Health Maintenance for items below Health Maintenance items due: DTaP,Tdap,Td Vaccine(1 - Tdap) Never done Shingrix Vaccine(1 of 2) Never done RSV Vaccine(1 - 1-dose 60+ series) Never done Pneumococcal Vaccine: 65+(1 of 1 - PCV) Never done Mammogram Screening due on 04/22/2022 Navigation Signature: Bhavya Valles February 03, 2023 7:40 AM [facility] 01-19-2023 Note HNO ID: [id number] Author: Erika Sinha OD Service: ? Author Type: MOSAIC FLOOR LAYER Type: Progress Notes Filed: 01/19/2023 4:43 PM Note Text: ASSESSMENT/PLAN: 1. Hyperopia, left - ICD9: 367.0, ICD10: H52.02 (primary diagnosis) 2. Regular astigmatism, bilateral - ICD9: 367.21, ICD10: H52.223 3. Presbyopia - ICD9: 367.4, ICD10: H52.4 Suggested updated her glasses at this time and to continue to monitor her cataracts. 4. Refractive amblyopia of left eye - ICD9: 368.03, ICD10: H53.022 Stable. Recommended yearly exams. Erika Sinha, VITALIY I have confirmed and edited as necessary the relevant ophthalmic history, ROS, and the neuro exam findings as obtained by others. I have seen and examined this patient. [facility] 01-19-2023 Instructions Erika Sinha, VITALIY - 01/19/2023 4:42 PM EST ASSESSMENT/PLAN: 1. Hyperopia, left - ICD9: 367.0, ICD10: H52.02 (primary diagnosis) 2. Regular astigmatism, bilateral - ICD9: 367.21, ICD10: H52.223 3. Presbyopia - ICD9: 367.4, ICD10: H52.4 Suggested updated her glasses at this time and to continue to monitor her cataracts. 4. Refractive amblyopia of left eye - ICD9: 368.03, ICD10: H53.022 Stable. Recommended yearly exams. documented in this encounter [facility] 01-19-2023 History of Present illness Narrative ASSESSMENT/PLAN: 1. Hyperopia, left - ICD9: 367.0, ICD10: H52.02 (primary diagnosis) 2. Regular astigmatism, bilateral - ICD9: 367.21, ICD10: H52.223 3. Presbyopia - ICD9: 367.4, ICD10: H52.4 Suggested updated her glasses at this time and to continue to monitor her cataracts. 4. Refractive amblyopia of left eye - ICD9: 368.03, ICD10: H53.022 Stable. Recommended yearly exams. Erika Sinha, OD I have confirmed and edited as necessary the relevant ophthalmic history, ROS, and the neuro exam findings as obtained by others. I have seen and examined this patient. documented in this encounter [facility] 01-13-2023 Note HNO ID: [id number] Author: Belgica Enriquez MD Service: ? Author Type: Physician Type: Progress Notes Filed: 01/13/2023 12:46 PM Note Text: Orthopaedic Office Note: January 13, 2023 12:41 PM Vanesa Ferguson 67 year old History: Vanesa is a 67-year-old woman with a longstanding history of posttraumatic osteoarthritis of the right knee status post ligamentous reconstruction many years ago. When I last saw her I did a corticosteroid injection. This helped her minimally, and also made her feel very fatigued for over a week. She does have COVID long-haul. In general she is sensitive to medication. Her right knee is giving her so much difficulty at this point is quite debilitating and she would like to proceed with a knee replacement, which she is here to discuss. We also tried therapy and an unloading brace Subjective: See above Updated ROS: No changes Updated Exam: Unchanged lower Extremity Alignment: Varus deformity, Correctable Range of motion is 5 degrees in extension and 110 degrees of flexion. Extension La degrees Pain with ROM: Yes Effusion: Slight Tender to the palpation of Medial femoral condyle and Medial joint line Pain with patellar compression: No Stability: Anterior/Posterior stable and Varus/Valgus stable Hip Exam: flexion to 100+ degrees, full extension, internal/external rotation adequate, and no pain with log roll, [facility] Neurovascular Status: Sensation Intact, Moves foot and ankle up AND down, and 2+ dorsalis pedis Updated Imaging: No new imaging Assessment and Plan: Vanesa has severe right knee posttraumatic osteoarthritis. She has tried therapy, activity modifications, medications, injections, and an chip unloader brace. At this point her symptoms are severe and she would like to proceed with a robotically assisted knee replacement. Risks, benefits, expected outcomes recovery and potential complications were all reviewed. She understands these and wishes to proceed. Plan for an overnight stay here at [facility]. I spent a total of approximately 25 minutes on the date of the service which included preparing to see the patient, [id number] patient care, completing clinical documentation, obtaining and/or reviewing separately obtained history, performing a medically appropriate examination, counseling and educating the patient/family/caregiver, ordering medications, tests, or procedures, independently interpreting results (not separately reported), communicating results to the patient/family/caregiver, and care coordination (not separately reported). Belgica Enriquez MD Orthopaedic Surgery [facility] 01-13-2023 History of Present illness Narrative Orthopaedic Office Note: January 13, 2023 12:41 PM Vanesa Ferguson 67 year old History: Vanesa is a 67-year-old woman with a longstanding history of posttraumatic osteoarthritis of the right knee status post ligamentous reconstruction many years ago. When I last saw her I did a corticosteroid injection. This helped her minimally, and also made her feel very fatigued for over a week. She does have COVID long-haul. In general she is sensitive to medication. Her right knee is giving her so much difficulty at this point is quite debilitating and she would like to proceed with a knee replacement, which she is here to discuss. We also tried therapy and an unloading brace Subjective: See above Updated ROS: No changes Updated Exam: Unchanged lower Extremity Alignment: Varus deformity, Correctable Range of motion is 5 degrees in extension and 110 degrees of flexion. Extension La degrees Pain with ROM: Yes Effusion: Slight Tender to the palpation of Medial femoral condyle and Medial joint line Pain with patellar compression: No Stability: Anterior/Posterior stable and Varus/Valgus stable Hip Exam: flexion to 100+ degrees, full extension, internal/external rotation adequate, and no pain with log roll, [facility] Neurovascular Status: Sensation Intact, Moves foot and ankle up & down, and 2+ dorsalis pedis Updated Imaging: No new imaging Assessment and Plan: Vanesa has severe right knee posttraumatic osteoarthritis. She has tried therapy, activity modifications, medications, injections, and an chip unloader brace. At this point her symptoms are severe and she would like to proceed with a robotically assisted knee replacement. Risks, benefits, expected outcomes recovery and potential complications were all reviewed. She understands these and wishes to proceed. Plan for an overnight stay here at [facility]. I spent a total of approximately 25 minutes on the date of the service which included preparing to see the patient, [id number] patient care, completing clinical documentation, obtaining and/or reviewing separately obtained history, performing a medically appropriate examination, counseling and educating the patient/family/caregiver, ordering medications, tests, or procedures, independently interpreting results (not separately reported), communicating results to the patient/family/caregiver, and care coordination (not separately reported). Belgica Enriquez MD Orthopaedic Surgery documented in this encounter [facility] 12-19-2022 Note HNO ID: [id number] Author: Singh Baez, DO Service: ? Author Type: Physician Type: Progress Notes Filed: 12/19/2022 11:12 AM Note Text: CC: Vanesa Ferguson is a 67 year old female who presents to the office for follow up HPI: At last OFFICE VISIT 3 months ago Anxiety symptoms, recently has been struggling with feeling anxious intermittently. She is unsure what is triggering the symptoms but has had a lot of stress she feels. No SI or HI. She is taking the prozac 10 mg a day and feels when she has tried to increase this in the past that it has made symptoms worse. Admits that she is trying to get more exercise with walking now that the weather is nice outside with Spring and feels this will also help her mood. When she gets anxious she gets shaky feeling. Has also had some fatigue symptoms. Tingling into feet, comes and goes, had nerve testing which was normal (EMG/NCT). Has seen [facility], is scheduled to have DAMIAN/PVR assessed. Hypothyroidism, taking levothyroxine 88 mcg a day, has fatigue symptoms and recently has felt a flutter sensation in her neck and sometimes a pressure in her neck. Currently Mood, anxiety still is present but better with taking the prozac 10 mg a day and supplements over the counter. Feels triggered by stressors in her life. 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 Has support from her family Hypothyroidism, taking 100 mcg a day of levothyroxine. TSH Date Value Ref Range Status 12/08/2022 1.790 0.270 - 4.200 mIU/L Final Free T4 Date Value Ref Range Status 12/08/2022 1.8 (H) 0.9 - 1.7 ng/dL Final Free T3 2.9 12/08/2022 Right knee pain and severe OA, she has been seen by Dr. Enriquez in Orthopedics. She is going to be scheduling knee replacement surgery Hemoglobin (g/dL) Date Value 12/08/2022 14.5 07/20/2020 15.3 Hematocrit (%) Date Value 12/08/2022 42.0 07/20/2020 46.0 WBC (k/uL) Date Value 12/08/2022 6.08 07/20/2020 6.12 Glucose (mg/dL) Date Value 12/08/2022 96 07/20/2020 141 Potassium (mmol/L) Date Value 12/08/2022 4.2 07/20/2020 3.7 Sodium (mmol/L) Date Value 12/08/2022 140 07/20/2020 140 Chloride (mmol/L) Date Value 12/08/2022 105 07/20/2020 103 CO2 (mmol/L) Date Value 12/08/2022 27 07/20/2020 24 Creatinine (mg/dL) Date Value 12/08/2022 0.83 02/25/2021 0.73 BUN (mg/dL) Date Value 12/08/2022 18 07/20/2020 12 Anion Gap (mmol/L) Date Value 12/08/2022 8 07/20/2020 13 Calcium (mg/dL) Date Value 07/20/2020 9.6 Calcium, Total (mg/dL) Date Value 12/08/2022 9.3 Protein, Total (g/dL) Date Value 12/08/2022 6.5 07/20/2020 6.7 Albumin (g/dL) Date Value 12/08/2022 4.5 07/20/2020 4.5 Bilirubin, Total (mg/dL) Date Value 12/08/2022 0.7 07/20/2020 0.8 Alkaline Phosphatase (U/L) Date Value 12/08/2022 101 07/20/2020 91 AST (U/L) Date Value 12/08/2022 16 07/20/2020 29 ALT (U/L) Date Value 12/08/2022 16 07/20/2020 34 PAST MEDICAL HISTORY Diagnosis Date Amblyopia of eye, left Poor vision since childhood Carotid artery disease (HCC) 01/2015 20-39% ICA b/l Fibromyalgia Herniated disc, cervical Hyperlipidemia 06/21/2015 Hypertension Hypothyroid Lumbar herniated disc Marijuana use 08/09/2020 positive in tox screen 08/09/2020-do not prescribe controlled substances Ureteral stone 08/25/2019 PAST SURGICAL HISTORY Procedure Laterality Date APPENDECTOMY BREAST BIOPSY EYE MUSCLE SURG PROC UNLISTED HYSTERECTOMY HX Vaginal PAST SURGICAL HISTORY OF 1980 Right knee surgery REVISE MEDIAN N/CARPAL TUNNEL SURG Right 2011 right carpal tunnel release THROAT CULTURE lumps on vocal cords TUBAL LIGATION, Current Outpatient Medications Medication Sig levothyroxine (SYNTHROID) 100 mcg tablet Take 1 tablet PO daily traZODone (DESYREL) 50 mg tablet Take 1 tablet by mouth daily at bedtime. terbinafine HCl (LAMISIL) 250 mg tablet Take 1 tablet by mouth once daily. levalbuterol tartrate HFA 45 mcg/actuation inhaler Inhale 1-2 Puffs as instructed every 4 hours as needed for wheezing/shortness of breath. fluticasone propionate (FLOVENT DISKUS) 100 mcg/actuation inhaler Inhale 1 Puff as instructed twice daily. For cough benzonatate (TESSALON PERLES) 100 mg capsule Take 1 capsule by mouth three times daily as needed for cough. etodolac (LODINE) 400 mg tablet Take 1 tablet by mouth twice daily. traMADol (ULTRAM) 50 mg tablet Take 1 tablet by mouth twice daily as needed for pain. albuterol HFA (VENTOLIN HFA) 90 mcg/actuation inhaler Inhale 2 Puffs as instructed every 4 hours as needed for wheezing/shortness of breath. FLUOXETINE 10 mg tablet TAKE 1 TABLET ONCE DAILY. atenolol (TENORMIN) 50 mg tablet Take 1 tablet by mouth once daily. omeprazole (PRILOSEC) 20 mg capsule Take 1 capsule by mouth once daily for 28 days. hydrOXYzine HCl (ATARAX) 25 mg tablet Take 1 tablet (more content not included)... [facility] 12-19-2022 History of Present illness Narrative CC: Vanesa Ferguson is a 67 year old female who presents to the office for follow up HPI: At last OFFICE VISIT 3 months ago Anxiety symptoms, recently has been struggling with feeling anxious intermittently. She is unsure what is triggering the symptoms but has had a lot of stress she feels. No SI or HI. She is taking the prozac 10 mg a day and feels when she has tried to increase this in the past that it has made symptoms worse. Admits that she is trying to get more exercise with walking now that the weather is nice outside with Spring and feels this will also help her mood. When she gets anxious she gets shaky feeling. Has also had some fatigue symptoms. Tingling into feet, comes and goes, had nerve testing which was normal (EMG/NCT). Has seen [facility] [employer], is scheduled to have DAMIAN/PVR assessed. Hypothyroidism, taking levothyroxine 88 mcg a day, has fatigue symptoms and recently has felt a flutter sensation in her neck and sometimes a pressure in her neck. Currently Mood, anxiety still is present but better with taking the prozac 10 mg a day and supplements over the counter. Feels triggered by stressors in her life. 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 Has support from her family Hypothyroidism, taking 100 mcg a day of levothyroxine. TSH Date Value Ref Range Status 12/08/2022 1.790 0.270 - 4.200 mIU/L Final Free T4 Date Value Ref Range Status 12/08/2022 1.8 (H) 0.9 - 1.7 ng/dL Final Free T3 2.9 12/08/2022 Right knee pain and severe OA, she has been seen by Dr. Enriquez in Orthopedics. She is going to be scheduling knee replacement surgery Hemoglobin (g/dL) Date Value 12/08/2022 14.5 07/20/2020 15.3 Hematocrit (%) Date Value 12/08/2022 42.0 07/20/2020 46.0 WBC (k/uL) Date Value 12/08/2022 6.08 07/20/2020 6.12 Glucose (mg/dL) Date Value 12/08/2022 96 07/20/2020 141 Potassium (mmol/L) Date Value 12/08/2022 4.2 07/20/2020 3.7 Sodium (mmol/L) Date Value 12/08/2022 140 07/20/2020 140 Chloride (mmol/L) Date Value 12/08/2022 105 07/20/2020 103 CO2 (mmol/L) Date Value 12/08/2022 27 07/20/2020 24 Creatinine (mg/dL) Date Value 12/08/2022 0.83 02/25/2021 0.73 BUN (mg/dL) Date Value 12/08/2022 18 07/20/2020 12 Anion Gap (mmol/L) Date Value 12/08/2022 8 07/20/2020 13 Calcium (mg/dL) Date Value 07/20/2020 9.6 Calcium, Total (mg/dL) Date Value 12/08/2022 9.3 Protein, Total (g/dL) Date Value 12/08/2022 6.5 07/20/2020 6.7 Albumin (g/dL) Date Value 12/08/2022 4.5 07/20/2020 4.5 Bilirubin, Total (mg/dL) Date Value 12/08/2022 0.7 07/20/2020 0.8 Alkaline Phosphatase (U/L) Date Value 12/08/2022 101 07/20/2020 91 AST (U/L) Date Value 12/08/2022 16 07/20/2020 29 ALT (U/L) Date Value 12/08/2022 16 07/20/2020 34 PAST MEDICAL HISTORY Diagnosis Date Amblyopia of eye, left Poor vision since childhood Carotid artery disease (HCC) 01/2015 20-39% ICA b/l Fibromyalgia Herniated disc, cervical Hyperlipidemia 06/21/2015 Hypertension Hypothyroid Lumbar herniated disc Marijuana use 08/09/2020 positive in tox screen 08/09/2020-do not prescribe controlled substances Ureteral stone 08/25/2019 PAST SURGICAL HISTORY Procedure Laterality Date APPENDECTOMY BREAST BIOPSY EYE MUSCLE SURG PROC UNLISTED HYSTERECTOMY HX Vaginal PAST SURGICAL HISTORY OF 1980 Right knee surgery REVISE MEDIAN N/CARPAL TUNNEL SURG Right 2011 right carpal tunnel release THROAT CULTURE lumps on vocal cords TUBAL LIGATION, Current Outpatient Medications Medication Sig levothyroxine (SYNTHROID) 100 mcg tablet Take 1 tablet PO daily traZODone (DESYREL) 50 mg tablet Take 1 tablet by mouth daily at bedtime. terbinafine HCl (LAMISIL) 250 mg tablet Take 1 tablet by mouth once daily. levalbuterol tartrate HFA 45 mcg/actuation inhaler Inhale 1-2 Puffs as instructed every 4 hours as needed for wheezing/shortness of breath. fluticasone propionate (FLOVENT DISKUS) 100 mcg/actuation inhaler Inhale 1 Puff as instructed twice daily. For cough benzonatate (TESSALON PERLES) 100 mg capsule Take 1 capsule by mouth three times daily as needed for cough. etodolac (LODINE) 400 mg tablet Take 1 tablet by mouth twice daily. traMADol (ULTRAM) 50 mg tablet Take 1 tablet by mouth twice daily as needed for pain. albuterol HFA (VENTOLIN HFA) 90 mcg/actuation inhaler Inhale 2 Puffs as instructed every 4 hours as needed for wheezing/shortness of breath. FLUOXETINE 10 mg tablet TAKE 1 TABLET ONCE DAILY. atenolol (TENORMIN) 50 mg tablet Take 1 tablet by mouth once daily. omeprazole (PRILOSEC) 20 mg capsule Take 1 capsule by mouth once daily for 28 days. hydrOXYzine HCl (ATARAX) 25 mg tablet Take 1 tablet by mouth every 6 hours as needed for anxiety. aspirin, enteric coated (ASPIRIN, ENTERIC COATED) 81 mg EC tablet Take 1 tablet by mouth once daily. (Patient taking differently: Take 81 mg by mouth once daily. occasionally) B Complex Vitamins capsule Take 1 capsule by mouth once daily. FLUoxetine (PROZAC) 10 mg capsule Take 1 capsule by mouth once daily. meloxicam (MOBIC) 15 mg tablet Take 1 tablet by mouth once daily. for pain. Take with food. No current facility-administered medications for this visit. ALLERGIES Allergen Reactions Fluoxetine Other: See Comments Tremor SE Only with high doses such as 40 mg Seasonal Allergies Other: See Comments Sinuses Social History Tobacco Use Smoking status: Never Smokeless tobacco: Never Tobacco comments: Parents smoked in childhood home. Spouse non-smoker. Vaping Use Vaping Use: Never used Substance Use Topics Alcohol use: No Drug use: Not Currently Types: Marijuana ROS: See HPI PE: BP 138/82 Pulse 64 Temp (Src) 97.6 (Left Tympanic) Resp 16 Wt 157 lb (71.2kg) Gen: A&O, NAD, non-toxic appearing, Pleasant, cooperative, fatigued appearing HEENT: NT/AC, PERRLA, wearing glasses, EOMs intact b/l, nares clear and patent b/l, pharynx without erythema, exudate or lesions. Uvula midline. MMM, EACs without erythema or debris. TMs pearly foster with intact landmarks b/l. Neck: supple, No cervical LAD, no thyromegaly, no carotid bruits CV: RRR, normal S1 and S2, no murmurs, no gallops, no rubs, Pulses 2+ and symmetric in UE and LE b/l Lungs: normal respiratory effort, CTA b/l, no wheezing or rhonchi or rales Abd: soft, NT, ND, +BS, no hepatosplenomegaly MS: right knee in brace with arthritis symptoms Neuro: CN II-XII intact b/l, strength 5/5 b/l UE and LE, DTRs 2/4 UE and LE, sensation intact. Skin: warm, dry, intact, No rashes or lesions on exposed skin ASSESSMENT/PLAN: 1. Hypothyroidism, unspecified type - ICD9: 244.9, ICD10: E03.9 (primary diagnosis) - Instructed patient on importance of taking on an empty stomach either first thing in the morning or at bedtime. - Decrease Synthroid dose to 100 mcg 6 days a week and 50 mcg 1 day a week 2. Arm numbness left - ICD9: 782.0, ICD10: R20.0 rx refilled, stable - MELOXICAM 15 MG TABLET 3. Left arm pain - ICD9: 729.5, ICD10: M79.602 rx refilled, stable - MELOXICAM 15 MG TABLET 4. FRANCISCO (generalized anxiety disorder) - ICD9: 300.02, ICD10: F41.1 Stable, chronic, can consider adding other dosing of prozac or adjusting supplements. 5. Fatigue, unspecified type - ICD9: 780.79, ICD10: R53.83 See above, chronic 6. Right knee pain, unspecified chronicity - ICD9: 719.46, ICD10: M25.561 F/u with orthopedics, need for replacement surgery 7. Primary osteoarthritis of right knee - ICD9: 715.16, ICD10: M17.11 See above, f/u with surgeon, she is needing to get this done now Singh Baez DO Return if no improvement. Follow up with Singh Baez DO. To ER if develops chest pain, shortness of breath. Discussed risks, benefits, alternatives, and potential side effects of medications. Patient/Guardian expressed understanding and agreed with the plan. See patient instructions. Singh Baez DO [address] [place] [address] documented in this encounter [facility] 12-19-2022 Instructions Singh Baez DO - 12/19/2022 10:49 AM EST Decrease levothyroxine to 100 mcg 6 days a week and 50 mcg (1/2 tablet) only on 1 day a week. Blood pressure monitoring- need to keep BLOOD PRESSURE 130s/80s or less. If starts to go higher consistently, then can increase the atenolol to 50 mg in AM and 25 mg in PM (take an extra half tablet a day) documented in this encounter [facility] 12-05-2022 Note Patient Outreach ([place]) VANESA FERGUSON ([id number]) 1955 F Date Time Provider Department 12/05/22 BHAVYA VALLES ([facility]) [employer] During your visit today, we recorded the following information about you: Reena Bhavya 12/05/2022 11:02 AM Signed POPULATION HEALTH NAVIGATION OUTREACH Action/ Past due for mammogram, flu. LVM, mychart message sent Patient Identified by Name and : NO Outreach Outcome/Action Unable to reach patient: Left message MyChart message sent Did you use a PCP flex slot to schedule this appointment? N/A Reason for Outreach Care Gap or Scheduling/Wellness visits Payer: Payor: [employer] / Plan: [employer] HMO / Product Type: HMO / Care Gap Reviewed:: Breast Cancer screening Flu Vaccine Reminder: Reminder note to check Health Maintenance for items below Health Maintenance items due: DTaP,Tdap,Td Vaccine(1 - Tdap) Never done Shingrix Vaccine(1 of 2) Never done RSV Vaccine(1 - 1-dose 60+ series) Never done Pneumococcal Vaccine: 65+(1 - PCV) Never done Mammogram Screening due on 04/22/2022 Influenza Vaccine(1) due on 10/10/2022 Navigation Signature: Bhavya Reena December 05, 2022 11:01 AM Allergies As of Date: 12/05/2022 Noted Allergy Reaction FLUOXETINE 03/01/2019 14 - Other: See Comments Comments: Tremor SE Only with high doses such as 40 mg SEASONAL ALLERGIES 12/31/2018 14 - Other: See Comments Comments: Sinuses Date Reviewed: 10/24/2022 Reviewed by: Melania Manzo LPN - Fully Assessed Reason for Visit: Population Health Navigation Outreach [3910] Cmt: Kayla care gap Prescriptions as of 12/05/2022 - FLUoxetine (PROZAC) 10 mg capsule Take 1 capsule by mouth once daily. - levothyroxine (SYNTHROID) 100 mcg tablet Take 1 tablet PO daily - traZODone (DESYREL) 50 mg tablet Take 1 tablet by mouth daily at bedtime. - terbinafine HCl (LAMISIL) 250 mg tablet Take 1 tablet by mouth once daily. - levalbuterol tartrate HFA 45 mcg/actuation inhaler Inhale 1-2 Puffs as instructed every 4 hours as needed for wheezing/shortness of breath. - fluticasone propionate (FLOVENT DISKUS) 100 mcg/actuation inhaler Inhale 1 Puff as instructed twice daily. For cough - benzonatate (TESSALON PERLES) 100 mg capsule Take 1 capsule by mouth three times daily as needed for cough. - etodolac (LODINE) 400 mg tablet Take 1 tablet by mouth twice daily. - traMADol (ULTRAM) 50 mg tablet Take 1 tablet by mouth twice daily as needed for pain. - albuterol HFA (VENTOLIN HFA) 90 mcg/actuation inhaler Inhale 2 Puffs as instructed every 4 hours as needed for wheezing/shortness of breath. - FLUOXETINE 10 mg tablet TAKE 1 TABLET ONCE DAILY. - atenolol (TENORMIN) 50 mg tablet Take 1 tablet by mouth once daily. - omeprazole (PRILOSEC) 20 mg capsule Take 1 capsule by mouth once daily for 28 days. - hydrOXYzine HCl (ATARAX) 25 mg tablet Take 1 tablet by mouth every 6 hours as needed for anxiety. - aspirin, enteric coated (ASPIRIN, ENTERIC COATED) 81 mg EC tablet Take 1 tablet by mouth once daily. - B Complex Vitamins capsule Take 1 capsule by mouth once daily. Problem List As Of Date 12/05/2022 Noted Resolved Arm numbness left [R20.0] 12/12/2014 Left arm pain [M79.602] 12/12/2014 Essential hypertension [I10] 12/30/2014 Pain of right upper arm [M79.621] 02/07/2015 Chronic pain of right knee [M25.561, G89.29] 05/31/2015 Post-traumatic osteoarthritis of right knee [M1*05/31/2015 Hypertension [I10] 06/20/2015 Hypothyroid [E03.9] 06/20/2015 Carotid artery disease (HCC) [I77.9] 01/09/2015 Herniated disc, cervical [M50.20] 06/20/2015 Lumbar herniated disc [M51.26] 06/20/2015 Fibromyalgia [M79.7] Hyperlipidemia [E78.5] 06/21/2015 Left carpal tunnel syndrome [G56.02] 07/02/2015 MVP (mitral valve prolapse) [I34.1] 09/15/2018 Non-rheumatic mitral regurgitation, mild [I34.0]09/24/2018 SOB (shortness of breath) [R06.02] 09/24/2018 Palpitations, rare, do not affect her daily lif*09/24/2018 Dizziness [R42] 09/24/2018 Subjective visual disturbance [H53.10] 11/19/2018 Dry eye syndrome of both eyes [H04.123] 11/19/2018 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] 11/19/2018 Osteoarthritis of spine with radiculopathy, cer*02/15/2019 Multiple subsegmental pulmonary emboli without *04/16/2020 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 [facility] 12-05-2022 Note HNO ID: [id number] Author: Bhavya Valles Service: ? Author Type: ? Type: Progress Notes Filed: 12/05/2022 11:02 AM Note Text: POPULATION HEALTH NAVIGATION OUTREACH Action/FYI Past due for mammogram, flu. LVM, mychart message sent Patient Identified by Name and : NO Outreach Outcome/Action Unable to reach patient: Left message MyChart message sent Did you use a PCP flex slot to schedule this appointment? N/A Reason for Outreach Care Gap or Scheduling/Wellness visits Payer: Payor: [employer] / Plan: [employer] / Product Type: HMO / Care Gap Reviewed:: Breast Cancer screening Flu Vaccine Reminder: Reminder note to check Health Maintenance for items below Health Maintenance items due: DTaP,Tdap,Td Vaccine(1 - Tdap) Never done Shingrix Vaccine(1 of 2) Never done RSV Vaccine(1 - 1-dose 60+ series) Never done Pneumococcal Vaccine: 65+(1 - PCV) Never done Mammogram Screening due on 04/22/2022 Influenza Vaccine(1) due on 10/10/2022 Navigation Signature: Bhavya Valles December 05, 2022 11:01 AM [facility] 12-05-2022 History of Present illness Narrative POPULATION HEALTH NAVIGATION OUTREACH Action/ Past due for mammogram, flu. LVM, [employer] message sent Patient Identified by Name and : NO Outreach Outcome/Action Unable to reach patient: Left message [employer] message sent Did you use a PCP flex slot to schedule this appointment? N/A Reason for Outreach Care Gap or Scheduling/Wellness visits Payer: Payor: [employer] / Plan: [employer] / Product Type: HMO / Care Gap Reviewed:: Breast Cancer screening Flu Vaccine Reminder: Reminder note to check Health Maintenance for items below Health Maintenance items due: DTaP,Tdap,Td Vaccine(1 - Tdap) Never done Shingrix Vaccine(1 of 2) Never done RSV Vaccine(1 - 1-dose 60+ series) Never done Pneumococcal Vaccine: 65+(1 - PCV) Never done Mammogram Screening due on 04/22/2022 Influenza Vaccine(1) due on 10/10/2022 Navigation Signature: Bhavya Valles December 05, 2022 11:01 AM documented in this encounter [facility] 10-24-2022 Note HNO ID: [id number] Author: Erika Read RT(R) Service: Radiology Author Type: Technologist Type: Progress Notes Filed: 10/24/2022 12:29 PM Note Text: Radiology Service Progress Note PATIENT NAME: Vanesa Ferguson 2 DATE OF SERVICE: October 24, 2022 TIME: 12:17 PM PATIENT IDENTITY VERIFICATION COMPLETED USING TWO (2) IDENTIFIERS: Name and Date of confirmed by patient verbally. FALL SCREENING: Has the patient had 2 falls in the last year or 1 fall with injury or currently using an Ambulatory Assistive Device (Walker, Cane, Wheelchair, Crutches, etc.)? No PATIENT GENDER DATA: Female. status: : No status: NO. PATIENT RELEVANT IMPLANT DATA REVIEWED: Not Applicable RADIOLOGY DEPARTMENT: General X-ray: Exam(s) Completed: Lower Extremity X-Ray(s): Foot, Bilateral and Wt. Bearing PERIPHERAL IV DATA: Not applicable SIGNED BY: RT Brittani(R) October 24, 2022 12:17 PM [facility] 10-24-2022 Note HNO ID: [id number] Author: Kaylee Kumari Service: ? Author Type: Physician Type: Progress Notes Filed: 10/26/2022 3:18 PM Note Text: Chief Complaint: This 67 year old female who presents with chief complaint:b/l heel pain HPI Patient presents to clinic for evaluation of b/l feet Complains of pain in both heels that is present all day long, worse with certain activity She has tried creams and over the counter medication which has minimal effect She states sometimes, the pain can be so severe that it limits her ability to walk She has pvr that was normal She has emg that was normal PAIN EVALUATION 10/24/2022 1106 Pain Level: 5 Pain Location: Other: See Comment bilateral feet Description: Sore Frequency: Continuous Intervention/Comfort measure: Reposition;Relaxation Hemoglobin A1C (%) Date Value 11/12/2021 4.8 07/24/2020 4.9 01/28/2019 4.9 11/08/2016 4.9 03/12/2015 5.1 PCP: Singh Baez DO PAST MEDICAL HISTORY Diagnosis Date Amblyopia of eye, left Poor vision since childhood Carotid artery disease (HCC) 01/2015 20-39% ICA b/l Fibromyalgia Herniated disc, cervical Hyperlipidemia 06/21/2015 Hypertension Hypothyroid Lumbar herniated disc Marijuana use 08/09/2020 positive in tox screen 08/09/2020-do not prescribe controlled substances Ureteral stone 08/25/2019 Current Outpatient Medications Medication Sig levothyroxine (SYNTHROID) 100 mcg tablet Take 1 tablet PO daily traZODone (DESYREL) 50 mg tablet Take 1 tablet by mouth daily at bedtime. albuterol HFA (VENTOLIN HFA) 90 mcg/actuation inhaler Inhale 2 Puffs as instructed every 4 hours as needed for wheezing/shortness of breath. atenolol (TENORMIN) 50 mg tablet Take 1 tablet by mouth once daily. B Complex Vitamins capsule Take 1 capsule by mouth once daily. FLUoxetine (PROZAC) 10 mg capsule Take 1 capsule by mouth once daily. terbinafine HCl (LAMISIL) 250 mg tablet Take 1 tablet by mouth once daily. (Patient not taking: Reported on 10/14/2022) levalbuterol tartrate HFA 45 mcg/actuation inhaler Inhale 1-2 Puffs as instructed every 4 hours as needed for wheezing/shortness of breath. (Patient not taking: Reported on 10/22/2022) fluticasone propionate (FLOVENT DISKUS) 100 mcg/actuation inhaler Inhale 1 Puff as instructed twice daily. For cough (Patient not taking: Reported on 10/22/2022) benzonatate (TESSALON PERLES) 100 mg capsule Take 1 capsule by mouth three times daily as needed for cough. etodolac (LODINE) 400 mg tablet Take 1 tablet by mouth twice daily. (Patient not taking: Reported on 10/22/2022) traMADol (ULTRAM) 50 mg tablet Take 1 tablet by mouth twice daily as needed for pain. (Patient not taking: Reported on 10/14/2022) FLUOXETINE 10 mg tablet TAKE 1 TABLET ONCE DAILY. omeprazole (PRILOSEC) 20 mg capsule Take 1 capsule by mouth once daily for 28 days. hydrOXYzine HCl (ATARAX) 25 mg tablet Take 1 tablet by mouth every 6 hours as needed for anxiety. aspirin, enteric coated (ASPIRIN, ENTERIC COATED) 81 mg EC tablet Take 1 tablet by mouth once daily. (Patient taking differently: Take 81 mg by mouth once daily. occasionally) No current facility-administered medications for this visit. ALLERGIES Allergen Reactions Fluoxetine Other: See Comments Tremor SE Only with high doses such as 40 mg Seasonal Allergies Other: See Comments Sinuses PAST SURGICAL HISTORY Procedure Laterality Date APPENDECTOMY BREAST BIOPSY EYE MUSCLE SURG PROC UNLISTED HYSTERECTOMY HX Vaginal PAST SURGICAL HISTORY OF 1980 Right knee surgery REVISE MEDIAN N/CARPAL TUNNEL SURG Right 2011 right carpal tunnel release THROAT CULTURE lumps on vocal cords TUBAL LIGATION, FAMILY HISTORY Problem Relation Age of Onset Cancer Father age 73. Lung, brain. Stroke Father Stroke Mother age 65 other (Liver) Mother Diabetes Maternal Grandmother Glaucoma No Family History Detached Retina No Family History Macular Degen No Family History Social History Tobacco Use Smoking status: Never Smokeless tobacco: Never Tobacco comments: Parents smoked in childhood home. Spouse non-smoker. Vaping Use Vaping Use: Never used Substance Use Topics Alcohol use: No Drug use: Not Currently Types: Marijuana REVIEW OF SYSTEMS GENERAL: Negative for Malaise, significant weight loss, fever RESPIRATORY: Negative for cough, wheezing and shortness of breath CARDIOVASCULAR: Negative for chest pain, leg swelling and palpitations GI: Negative for abdominal discomfort, blood in stools or black stools and change in bowel habits : Negative for dysuria, frequency and incontinence MUSCULOSKELETAL: Negative for joint pain or swelling, back pain, and muscle pain. SKIN: Negative for lesions, rash, and itching. HEMATOLOGY/LYMPHOLOGY Negative for prolonged bleeding, bruising easily, and swollen nodes. ENDOCRINE: Negative for cold or heat intolerance, po (more content not included)... [facility] 10-24-2022 Note HNO ID: [id number] Author: Melania Manzo LPN Service: ? Author Type: LICENSED NURSE Type: Progress Notes Filed: 10/26/2022 3:18 PM Note Text: AMB ROOMING INTAKE FLOWSHEET DATA Pain Pain Level: 5 Pain Location: Other: See Comment (bilateral feet) Description: Sore Frequency: Continuous Intervention/Comfort measure: Reposition, Relaxation Patient presents with: Left Foot - Established Patient, Pain Right Foot - Established Patient, Pain Patient present to office to discuss results. Melania Manzo LPN [facility] 10-24-2022 History of Present illness Narrative Radiology Service Progress Note PATIENT NAME: Vanesa Ferguson 2 DATE OF SERVICE: October 24, 2022 TIME: 12:17 PM PATIENT IDENTITY VERIFICATION COMPLETED USING TWO (2) IDENTIFIERS: Name and Date of confirmed by patient verbally. FALL SCREENING: Has the patient had 2 falls in the last year or 1 fall with injury or currently using an Ambulatory Assistive Device (Walker, Cane, Wheelchair, Crutches, etc.)? No PATIENT GENDER DATA: Female. status: : No status: NO. PATIENT RELEVANT IMPLANT DATA REVIEWED: Not Applicable RADIOLOGY DEPARTMENT: General X-ray: Exam(s) Completed: Lower Extremity X-Ray(s): Foot, Bilateral and Wt. Bearing PERIPHERAL IV DATA: Not applicable SIGNED BY: RT Brittani(R) October 24, 2022 12:17 PM documented in this encounter [facility] 10-24-2022 Instructions Kaylee Kumari - 10/24/2022 11:39 AM EDT Images from the original note were not included. What is Plantar Fasciitis? Plantar fasciitis is the most common cause of heel pain. The pain is caused by inflammation of the plantar fascia. If you strain your plantar fascia, it becomes weak, swollen and irritated (inflamed). The resulting pain may be isolated in the heel or may appear at different points on the bottom of the foot, from time to time; it may occur in one foot or both. Some think that plantar fasciitis pain is caused by irritation of nerves from tissue swelling or inflammation, but it is debatable. Plantar fasciitis is common in middle-aged people; it also occurs in younger people who are on their feet a lot, such as athletes or soldiers. The plantar fascia is a strong band of connective tissue that extends from the base of the toes, along the bottom of the foot, to the bottom of the heel (calcaneous bone); it acts like a bowstring to maintain the arch of the foot. What are heel spurs? The inflammatory reaction of the heel bone may produce spike-like projections of new bone, called heel spurs. The spurs sometimes show on X-rays. They neither cause the initial pain nor do they cause the initial problem. However, later, having to walk on spurs may cause sharp pain. What causes plantar fasciitis? Plantar fasciitis is caused by straining the ligament that supports your arch. Repeated strain can cause tiny tears in the ligament. These lead to pain and swelling. During walking, the plantar fascia experiences tension up to twice the body weight with each step. While this is normal, those who spend much time on their feet, such as nurses, battery engineer/waiters, and mail carriers, often experience plantar fasciitis. Athletes involved in tennis or other racquet sports, race walking, jogging or running also show a higher incidence of plantar fasciitis than do those participating in other activities. Thus, it's clear that plantar fasciitis is predominantly an overuse injury. In fact, any activity that results in prolonged tension and stress on the plantar fascia may cause plantar fasciitis. It is possible that changes in footwear may play a role in causing plantar fasciitis, no matter what activity is occurring. Those who are overweight are prone to plantar fasciitis. This is true even for sedentary people who get little physical activity. Abnormalities of the foot and ankle joints may predispose some individuals to development of plantar fasciitis (specifically, over pronation of the subtalar joint). Contributing Factors * Flat feet * Toe running, hill running * Sudden weight increase * High-arched, rigid feet * Soft terrain, e.g. running on sand * Obesity * Pronated feet (rolled inward) * Sudden increase in activity * Family tendency * Poor shoe support * Worn out or poorly fitted shoes * Increasing age * Walking, standing or running for long periods of time, especially on hard surfaces. How is the Injury Treated? Rest Your Feet: Limit, or if possible, stop activities that are causing your heel pain. Try to avoid running or walking on hard surfaces, such as concrete. Use pain as your guide. If your foot is too painful, rest it. Ice: Ice the sore area for 30 to 60 minutes, several times a day, to reduce inflammation and relieve pain. Apply a plastic bag of crushed ice (or a bag of frozen peas) over a towel. Ice the sore area for 15 minutes after activity/exercise. Application of heat is not generally recommended, as heat expands the bone and connective tissue, perhaps exerting greater pressure on nerves and thereby increasing pain. If heat is used, follow it with ice. Medication: If your condition developed recently, anti-inflammatory/analgesic medication, combined with heel pads (see below) may be all that is necessary to relieve pain and to reduce inflammation. If no pain relief has occurred after 2-3 weeks, however, your doctor may inject either cortisone or local anesthetic directly into the tender area. Exercises: Do simple exercises, such as calf stretches and towel stretches (see below) several times a day, especially when you first get up in the morning. These can help your ligament become more flexible and strengthen the muscles that support your arch. Shoes: Poorly fitting shoes can cause plantar fasciitis. The best type of shoe to wear is a good walking or running shoe with good shock absorption and excellent arch support. You should choose the one that fits the best. [place] with your athletic shoes to find a pair that is comfortable and causes fewer symptoms. Put your shoes on as soon as you get out of bed; going barefoot or wearing slippers may make your pain worse. Good brands include (but are not limited to): New Balance, Asics, [employer], SAS and Mer[employer] s. Taping: Your doctor may tape your foot to maintain the arch. This takes some of the tension off the plantar fascia. Weight Loss: If your weight is putting extra stress on your feet, your doctor may encourage you to try a weight-loss program. Orthotics: An orthotic insole is a molded piece of rubber, plastic, or other material that you insert into your shoe. It corrects the alignment of your foot and cushions your foot from excessive pounding. These may be prescription or non-prescription. Prescription orthotics are custom-fitted and may fit better and control pain better, but are very expensive. Night Splints: A night splint holds the foot with the toes pointed up and the ankle at a 90-degree angle. This position applies a constant, gentle stretch to the plantar fascia. Corticosteroid Shots: Steroids may be injected into the tender area to reduce inflammation. REHAB Exercises to stretch the plantar fascia, the calf muscles, and the Achilles tendon. Tightness of the muscles of the calves may contribute to plantar fasciitis, so stretching the calf muscles is important to rehabilitation, as is stretching of the plantar fascia itself. Plantar fascial stretches Assisted Dorsiflexion/Plantar Fascia Stretch: Sit on the floor or ground, barefoot, with both legs outstretched. Use a towel or elastic band and wrap it around the ball (and not the toes) of the affected foot. Use the towel or elastic band to provide resistance to upward movement of the forefoot. Pull foot upward (toward your body) with the help of the elastic band or towel, and then return to the starting position. Ten repetitions are recommended. Perform the sequence at least three times a day. Alternate Plantar Fascia Stretch: Sit upright in a chair, barefoot. Place the ankle of the affected foot on your opposite knee. Using the same hand as the affected foot, reach across and grab the toes. Flex the ankle toward and pull the toes toward the high. To test the stretch, place the thumb of your hand on the bottom of the foot. You should be able to feel the cord-like plantar fascia, running the length of the foot. Hold the stretch for a count of 10, then relax. Repeat 10 times. Do the sequence at least three times a day. Achilles/Calf Stretches Strengthening the muscles of the calves may contribute to successful rehabilitation of plantar fasciitis, as well as prevent reoccurrence. The exercises below will help strengthen the calf muscles. Calf and Achilles Tendon Stretch (Gastrocnemius Stretch): Face a wall, standing an arm's length away. Place one foot back. Place both hands on the wall. Bend the elbows and knee of your forward leg, keeping the heel of the backward foot on the floor and keeping your body straight (aligned), until your forehead nearly touches the wall, or until significant stretch is felt in the muscles of the calf of the backward leg. Hold this position for 10 to 15 seconds. Extend elbows (straighten your arms and stand upright again) and maintain this position for 10 seconds. Repeat this cycle 15 to 20 times. Switch legs and repeat the exercise. Powerstep Original Full length. Can purchase at [employer] here in [place], [employer] in [place] or [place]. Also can find in [employer] in [facility]. Powersteps can also be purchased online, starting around $45.00 If you have a metatarsal or dancer pad for your feet apply the pad directly to the insole so you can interchange between your shoes. Find a shoe with a removable insole and take this out and replace with your powerstep insole. Always bring powersteps with you when shopping for shoes so that you can make sure that everything fits well together documented in this encounter [facility] 10-24-2022 History of Present illness Narrative Images from the original note were not included. Chief Complaint: This 67 year old female who presents with chief complaint:b/l heel pain HPI Patient presents to clinic for evaluation of b/l feet Complains of pain in both heels that is present all day long, worse with certain activity She has tried creams and over the counter medication which has minimal effect She states sometimes, the pain can be so severe that it limits her ability to walk She has pvr that was normal She has emg that was normal PAIN EVALUATION 10/24/2022 1106 Pain Level: 5 Pain Location: Other: See Comment bilateral feet Description: Sore Frequency: Continuous Intervention/Comfort measure: Reposition;Relaxation Hemoglobin A1C (%) Date Value 11/12/2021 4.8 07/24/2020 4.9 01/28/2019 4.9 11/08/2016 4.9 03/12/2015 5.1 PCP: Singh Baez DO PAST MEDICAL HISTORY Diagnosis Date Amblyopia of eye, left Poor vision since childhood Carotid artery disease (HCC) 01/2015 20-39% ICA b/l Fibromyalgia Herniated disc, cervical Hyperlipidemia 06/21/2015 Hypertension Hypothyroid Lumbar herniated disc Marijuana use 08/09/2020 positive in tox screen 08/09/2020-do not prescribe controlled substances Ureteral stone 08/25/2019 Current Outpatient Medications Medication Sig levothyroxine (SYNTHROID) 100 mcg tablet Take 1 tablet PO daily traZODone (DESYREL) 50 mg tablet Take 1 tablet by mouth daily at bedtime. albuterol HFA (VENTOLIN HFA) 90 mcg/actuation inhaler Inhale 2 Puffs as instructed every 4 hours as needed for wheezing/shortness of breath. atenolol (TENORMIN) 50 mg tablet Take 1 tablet by mouth once daily. B Complex Vitamins capsule Take 1 capsule by mouth once daily. FLUoxetine (PROZAC) 10 mg capsule Take 1 capsule by mouth once daily. terbinafine HCl (LAMISIL) 250 mg tablet Take 1 tablet by mouth once daily. (Patient not taking: Reported on 10/14/2022) levalbuterol tartrate HFA 45 mcg/actuation inhaler Inhale 1-2 Puffs as instructed every 4 hours as needed for wheezing/shortness of breath. (Patient not taking: Reported on 10/22/2022) fluticasone propionate (FLOVENT DISKUS) 100 mcg/actuation inhaler Inhale 1 Puff as instructed twice daily. For cough (Patient not taking: Reported on 10/22/2022) benzonatate (TESSALON PERLES) 100 mg capsule Take 1 capsule by mouth three times daily as needed for cough. etodolac (LODINE) 400 mg tablet Take 1 tablet by mouth twice daily. (Patient not taking: Reported on 10/22/2022) traMADol (ULTRAM) 50 mg tablet Take 1 tablet by mouth twice daily as needed for pain. (Patient not taking: Reported on 10/14/2022) FLUOXETINE 10 mg tablet TAKE 1 TABLET ONCE DAILY. omeprazole (PRILOSEC) 20 mg capsule Take 1 capsule by mouth once daily for 28 days. hydrOXYzine HCl (ATARAX) 25 mg tablet Take 1 tablet by mouth every 6 hours as needed for anxiety. aspirin, enteric coated (ASPIRIN, ENTERIC COATED) 81 mg EC tablet Take 1 tablet by mouth once daily. (Patient taking differently: Take 81 mg by mouth once daily. occasionally) No current facility-administered medications for this visit. ALLERGIES Allergen Reactions Fluoxetine Other: See Comments Tremor SE Only with high doses such as 40 mg Seasonal Allergies Other: See Comments Sinuses PAST SURGICAL HISTORY Procedure Laterality Date APPENDECTOMY BREAST BIOPSY EYE MUSCLE SURG PROC UNLISTED HYSTERECTOMY HX Vaginal PAST SURGICAL HISTORY OF 1980 Right knee surgery REVISE MEDIAN N/CARPAL TUNNEL SURG Right 2011 right carpal tunnel release THROAT CULTURE lumps on vocal cords TUBAL LIGATION, FAMILY HISTORY Problem Relation Age of Onset Cancer Father age 73. Lung, brain. Stroke Father Stroke Mother age 65 other (Liver) Mother Diabetes Maternal Grandmother Glaucoma No Family History Detached Retina No Family History Macular Degen No Family History Social History Tobacco Use Smoking status: Never Smokeless tobacco: Never Tobacco comments: Parents smoked in childhood home. Spouse non-smoker. Vaping Use Vaping Use: Never used Substance Use Topics Alcohol use: No Drug use: Not Currently Types: Marijuana REVIEW OF SYSTEMS GENERAL: Negative for Malaise, significant weight loss, fever RESPIRATORY: Negative for cough, wheezing and shortness of breath CARDIOVASCULAR: Negative for chest pain, leg swelling and palpitations GI: Negative for abdominal discomfort, blood in stools or black stools and change in bowel habits : Negative for dysuria, frequency and incontinence MUSCULOSKELETAL: Negative for joint pain or swelling, back pain, and muscle pain. SKIN: Negative for lesions, rash, and itching. HEMATOLOGY/LYMPHOLOGY Negative for prolonged bleeding, bruising easily, and swollen nodes. ENDOCRINE: Negative for cold or heat intolerance, polyuria, polydipsia and goiter. NEURO: negative Physical Exam: Constitutional: Pt is a well developed 67 year old female who is alert, oriented and cooperative Eyes: Following during examination. No redness or drainage. Respiratory: RR normal and nonlabored. Even breathing. No evidence of distress or shortness of breath. Psychology: Patient is engaged during conversation. Normal affect and mood. Does not appear depressed or anxious during encounter. Vascular: Dorsalis pedis and posterior tibial pulses palpable as b/l Capillary Fill time < 5 seconds to digits 1-5 b/l Skin temperature warm to war, proximal to distal b/l Hair growth present to digits Neurological: intact light touch/epicritic sensation Vibratory sensation intact to hallux b/l intact protective sensation no significant neurological deficits Dermatological: Nails 1-5 b/l appear normal. Webspaces clean and dry 1-4 b/l. Skin appears well hydrated and supple. good color, texture, turgor. No open lesions present. No callosities present. Musculoskeletal/Orthopaedic: Patient has pain to palpation of b/l heel Foot type is neutral structurally AJ ROM is full with knee extended and flexed 1st MPJ is full when loaded and no pain or crepitus are noted with ROM. MTJ, STJ are full and free of pain and crepitus. +5/5 muscle strength dorsiflexion, plantarflexion, inversion, eversion b/l Radiographs: ordered ASSESSMENT: (M72.2) Plantar fasciitis, bilateral (primary encounter diagnosis) (G57.50) Tarsal tunnel syndrome, unspecified laterality PLAN: 1. History and physical examination performed. 2. XR reviewed with patient and interpreted today 3. Discussed past work-up including emg and pvr. Both of which were normal. She had been complaining of radiating pain which is why we had worked her up for possible radiculopathy. 4. She mentions the pain now is more in the heel. Will try inserts, stretching, icing, nsaids vs tylenol prn. 5. If pain fails to improve, could consider injection Kaylee Testrake, DPM Podiatry [address] [facility] [address] Dept: [phone] Dept AMB ROOMING INTAKE FLOWSHEET DATA Pain Pain Level: 5 Pain Location: Other: See Comment (bilateral feet) Description: Sore Frequency: Continuous Intervention/Comfort measure: Reposition, Relaxation Patient presents with: Left Foot - Established Patient, Pain Right Foot - Established Patient, Pain Patient present to office to discuss results. Melania Manzo LPN documented in this encounter [facility] 10-22-2022 Note HNO ID: [id number] Author: Sedrick Sinha II, OD Service: ? Author Type: MOSAIC FLOOR LAYER Type: Progress Notes Filed: 10/22/2022 5:42 PM Note Text: Assessment and Plan T15.12XA Foreign body in conjunctival sac, left, initial encounter (primary encounter diagnosis) Comment: Removed organic FB from upper tarsal plate with sponge spear. Artificial tears as needed for comfort. Recheck as needed. Instruct patient to immediately report any change in condition outside of expected and discussed symptoms. I have confirmed and edited as necessary the relevant ophthalmic history, ROS, and the neuro exam findings as obtained by others. I have seen and examined Vanesa Ferguson. I have discussed the case and the management of this patient's care with the Resident/Fellow, if applicable. I also have reviewed and agree with the assessment and plan as stated above and agree with all of its relevant components. Sedrick Sinha II, OD [facility] 10-22-2022 Instructions Sedrick Sinha II, OD - 10/22/2022 5:40 PM EDT Assessment and Plan T15.12XA Foreign body in conjunctival sac, left, initial encounter (primary encounter diagnosis) Comment: Removed organic FB from upper tarsal plate with sponge spear. Artificial tears as needed for comfort. Recheck as needed. Instruct patient to immediately report any change in condition outside of expected and discussed symptoms. I have confirmed and edited as necessary the relevant ophthalmic history, ROS, and the neuro exam findings as obtained by others. I have seen and examined Vanesa Ferguson. I have discussed the case and the management of this patient's care with the Resident/Fellow, if applicable. I also have reviewed and agree with the assessment and plan as stated above and agree with all of its relevant components. Sedrick Sinha II, OD documented in this encounter [facility] 10-22-2022 History of Present illness Narrative Assessment and Plan T15.12XA Foreign body in conjunctival sac, left, initial encounter (primary encounter diagnosis) Comment: Removed organic FB from upper tarsal plate with sponge spear. Artificial tears as needed for comfort. Recheck as needed. Instruct patient to immediately report any change in condition outside of expected and discussed symptoms. I have confirmed and edited as necessary the relevant ophthalmic history, ROS, and the neuro exam findings as obtained by others. I have seen and examined Vanesa Ferguson. I have discussed the case and the management of this patient's care with the Resident/Fellow, if applicable. I also have reviewed and agree with the assessment and plan as stated above and agree with all of its relevant components. Serdick Sinha II, OD documented in this encounter [facility] 10-14-2022 Note HNO ID: [id number] Author: Belgica Enriquez MD Service: ? Author Type: Physician Type: Progress Notes Filed: 10/14/2022 7:12 PM Note Text: CONSULT ORTHOPAEDIC: KNEE PRIMARY CARE PHYSICIAN: Singh Baez DO REFERRING PROVIDER: No referring provider defined for this encounter. ASSESSMENT AND PLAN Impression: Right Knee Severe Degenerative Osteoarthritis, Post-Traumatic CSI, PT, medial offloader Patient's been having ongoing progressive right knee pain over the past few years. She reports undergoing knee ligament reconstruction in 1980, and has worn a brace years ago. She reports the pain is mainly on the medial aspect of the knee exacerbated with activity but also occurs at rest. She reports occasional radicular type pain down to her bilateral feet. She takes periodic meloxicam with relief. Denies any history of knee injections, numbness tingling. Recently underwent EMG which was wnl. She is being seen by podiatry who is planning on obtaining DAMIAN/PVR. PMH significant for COVID and pulmonary emboli in 2019 (was on Eliquis), MVP, CAD, lumbar stenosis, anxiety, hypothyroid Large Joint Arthro/Inj: R knee joint Informed Consent Consent Obtained: Verbal [place] Protocol A moment to CARE was completed. SIGN IN Personnel directly involved with the procedure wore the appropriate PPE. Special Equipment: N/A Patient/Surrogate Stated/Verified: Patient name, Date of , Relevant allergies and Intended procedure TIME OUT Intended patient and procedure match the source document(s). Relevant labs, photos, and/or imaging studies have been reviewed. Correct side/site marked and visible. Medications required for procedure verified. 10/14/2022 7:08 PM The procedure site was prepped in the usual sterile fashion. Site: R knee joint Medications: 12 mg betamethasone acetate-betamethasone sodium phosphate 6 mg/mL Anesthetics: 4 mL lidocaine (PF) 10 mg/mL (1 %) Outcome: Tolerated well, no immediate complications Post-injection instructions were reviewed with the patient and the patient voiced understanding of these instructions. SIGN OUT All instruments, equipment, possible retained foreign bodies accounted for. Diagnoses: No diagnosis found. After discussion with Vanesa Ferguson, continued non-operative management of physical therapy and injection(s) was chosen. The patient currently has had six months of unsuccessful non-operative treatment as outlined in the HPI below. The patient has been ordered: No orders found for this visit on 10/14/22. No orders placed today. CONSULTS: Patient does not require consults for optimization at this time. Total Joint Arthroplasty: Risk Calculator Vanesa Ferguson has a 7.79% chance of NOT returning home at discharge for a Primary total Knee replacement. Vanesa's estimated Length of Stay is 1 day (Outpatient candidate). Vanesa's 30 day chance of readmission is 1.54%. Readmission Probability 1.54 % (within 30 days following surgery) Estimated LOS 1 day Discharge Disposition Probability D/C to Home 92.21 % D/C to SNF 7.79 % These calculations are based on the following factors: - 67 years of age - sex is not male - BMI of 27 kg/m2 - NarxCare score of 190 - 0 hospitalizations in the last 12 months - no history of heart disease - no history of diabetes - no history of COPD - no history of anemia - preoperative ambulation: impaired community distances - 2 step(s) to enter home - bed location is on the first floor - bath location is on the first floor - caregiver is consistent - home is not more than 150 miles away - PROMIS-10 Mental Health T score 41-49 - Marital status: Risk Factors for Total Knee Arthroplasty (TKA) Major Risk Factors Obesity normal High: BMI > 40 Moderate: BMI 30-40 Normal: BMI < 30 Diabetes normal High: A1C > 8 Moderate: A1C 7-8 Normal: A1C < 7 Smoking normal High: Current smoker Normal: Non smoker Narcotics Use Moderate Risk High:NarxCare >=300 Moderate: 100-299 Normal: 0-99 Depression normal High: PHQ-9 >14 Moderate: PHQ-9 5-14 Normal: PHQ-9 < 5 Area Deprivation Index (DENIA) Unknown Risk High: DENIA Score > 75 Moderate: DENIA 50-75 Normal: DENIA < 50 Area Deprivation Index (DENIA) No flowsheet data found. Patient Health Questionnaire (PHQ-9) PHQ-9 12/27/2019 01/19/2021 03/17/2022 PHQ-2 Score 0 0 0 (0-4) minimal depression, (5-9) mild depression, (10-14) moderate depression, (15-19) moderately severe depression, (20-27) severe depression Bone Density Risk Screen Vanesa Ferguson is at risk for bone loss and has not had a bone densitometry scan in the last 2 years (date of last scan: 09/05/2018). Recommend a bone densitometry scan and if indicated on the bone density results, a consult to a bone health specialist (Rheumatology, Endocrinology, or Women's Health) for bone assessment. Risk Factors: Use of Proton Pump Inhibitors Prednisone or use of systemic steroid (more content not included)... [facility] 10-14-2022 Note HNO ID: [id number] Author: Naomie Love RT(R) Service: ? Author Type: Technologist Type: Progress Notes Filed: 10/14/2022 2:04 PM Note Text: Radiology Service Progress Note PATIENT NAME: Vanesa Ferguson DATE OF SERVICE: October 14, 2022 TIME: 2:03 PM PATIENT IDENTITY VERIFICATION COMPLETED USING TWO (2) IDENTIFIERS: Name and Date of confirmed by patient verbally. FALL SCREENING: Has the patient had 2 falls in the last year or 1 fall with injury or currently using an Ambulatory Assistive Device (Walker, Cane, Wheelchair, Crutches, etc.)? No PATIENT GENDER DATA: Female. status: : No status: N/A PATIENT RELEVANT IMPLANT DATA REVIEWED: Not Applicable RADIOLOGY DEPARTMENT: General X-ray: Exam(s) Completed: Lower Extremity X-Ray(s): Knee, AP / Lat / Tunne / Merchant Bilateral and Wt. Bearing PERIPHERAL IV DATA: Not applicable SIGNED BY: RT Yamilet(R) October 14, 2022 2:03 PM [facility] 10-14-2022 History of Present illness Narrative Associated Order(s): Large Joint Arthro/Inj: R knee joint Post-Procedure Diagnose(s): Primary osteoarthritis of right knee CONSULT ORTHOPAEDIC: KNEE PRIMARY CARE PHYSICIAN: Singh Baez DO REFERRING PROVIDER: No referring provider defined for this encounter. ASSESSMENT & PLAN Impression: Right Knee Severe Degenerative Osteoarthritis, Post-Traumatic CSI, PT, medial offloader Patient's been having ongoing progressive right knee pain over the past few years. She reports undergoing knee ligament reconstruction in 1980, and has worn a brace years ago. She reports the pain is mainly on the medial aspect of the knee exacerbated with activity but also occurs at rest. She reports occasional radicular type pain down to her bilateral feet. She takes periodic meloxicam with relief. Denies any history of knee injections, numbness tingling. Recently underwent EMG which was wnl. She is being seen by podiatry who is planning on obtaining DAMIAN/PVR. PMH significant for COVID and pulmonary emboli in 2019 (was on Eliquis), MVP, CAD, lumbar stenosis, anxiety, hypothyroid Large Joint Arthro/Inj: R knee joint Informed Consent Consent Obtained: Verbal [place] Protocol A moment to CARE was completed. SIGN IN Personnel directly involved with the procedure wore the appropriate PPE. Special Equipment: N/A Patient/Surrogate Stated/Verified: Patient name, Date of , Relevant allergies and Intended procedure TIME OUT Intended patient and procedure match the source document(s). Relevant labs, photos, and/or imaging studies have been reviewed. Correct side/site marked and visible. Medications required for procedure verified. 10/14/2022 7:08 PM The procedure site was prepped in the usual sterile fashion. Site: R knee joint Medications: 12 mg betamethasone acetate-betamethasone sodium phosphate 6 mg/mL Anesthetics: 4 mL lidocaine (PF) 10 mg/mL (1 %) Outcome: Tolerated well, no immediate complications Post-injection instructions were reviewed with the patient and the patient voiced understanding of these instructions. SIGN OUT All instruments, equipment, possible retained foreign bodies accounted for. Diagnoses: No diagnosis found. After discussion with Vanesa Ferguson, continued non-operative management of physical therapy and injection(s) was chosen. The patient currently has had six months of unsuccessful non-operative treatment as outlined in the HPI below. The patient has been ordered: No orders found for this visit on 10/14/22. No orders placed today. CONSULTS: Patient does not require consults for optimization at this time. Total Joint Arthroplasty: Risk Calculator Vanesa Ferguson has a 7.79% chance of NOT returning home at discharge for a Primary total Knee replacement. Vanesa's estimated Length of Stay is 1 day (Outpatient candidate). Vanesa's 30 day chance of readmission is 1.54%. Readmission Probability 1.54 % (within 30 days following surgery) Estimated LOS 1 day Discharge Disposition Probability D/C to Home 92.21 % D/C to SNF 7.79 % These calculations are based on the following factors: - 67 years of age - sex is not male - BMI of 27 kg/m2 - NarxCare score of 190 - 0 hospitalizations in the last 12 months - no history of heart disease - no history of diabetes - no history of COPD - no history of anemia - preoperative ambulation: impaired community distances - 2 step(s) to enter home - bed location is on the first floor - bath location is on the first floor - caregiver is consistent - home is not more than 150 miles away - PROMIS-10 Mental Health T score 41-49 - Marital status: Risk Factors for Total Knee Arthroplasty (TKA) Major Risk Factors Obesity normal High: BMI > 40 Moderate: BMI 30-40 Normal: BMI < 30 Diabetes normal High: A1C > 8 Moderate: A1C 7-8 Normal: A1C < 7 Smoking normal High: Current smoker Normal: Non smoker Narcotics Use Moderate Risk High:NarxCare >=300 Moderate: 100-299 Normal: 0-99 Depression normal High: PHQ-9 >14 Moderate: PHQ-9 5-14 Normal: PHQ-9 < 5 Area Deprivation Index (DENIA) Unknown Risk High: DENIA Score > 75 Moderate: DENIA 50-75 Normal: DENIA < 50 Area Deprivation Index (DENIA) No flowsheet data found. Patient Health Questionnaire (PHQ-9) PHQ-9 12/27/2019 01/19/2021 03/17/2022 PHQ-2 Score 0 0 0 (0-4) minimal depression, (5-9) mild depression, (10-14) moderate depression, (15-19) moderately severe depression, (20-27) severe depression Bone Density Risk Screen Vanesa Ferguson is at risk for bone loss and has not had a bone densitometry scan in the last 2 years (date of last scan: 09/05/2018). Recommend a bone densitometry scan and if indicated on the bone density results, a consult to a bone health specialist (Rheumatology, Endocrinology, or Women's Health) for bone assessment. Risk Factors: Use of Proton Pump Inhibitors Prednisone or use of systemic steroids Chronic Malnutrition Additional Risk Factors History of DVT/PE NarxCare score NARX Narcotics: 190 (10/14/2022 1:45 PM) ACTIVE PROBLEM LIST Arm Numbness Left Left Arm Pain Essential Hypertension Pain of Right Upper Arm Chronic Pain of Right Knee Post-Traumatic Osteoarthritis of Right Knee Hypertension Hypothyroid Carotid Artery Disease (Hcc) Herniated Disc, Cervical Lumbar Herniated Disc Fibromyalgia Hyperlipidemia Left Carpal Tunnel Syndrome Mvp (Mitral Valve Prolapse) Non-rheumatic mitral regurgitation, mild Sob (Shortness of Breath) Palpitations, rare, do not affect her daily life Dizziness Subjective Visual Disturbance Dry 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 The problem began limiting activities 7-12 months ago. Vanesa reports a current pain level of 5 (Knee-Right). She describes the pain as Sharp, Other: See comment (weakness). The pain is Continuous, and has lasted for 8 Months. Interventions tried include Medication, Pillow support, Cold. FUNCTIONAL STATUS: Do moderate work around the house such as vacuuming, sweeping floors, or carrying in groceries (3.50 METs) PREVIOUS TREATMENTS: Current Anti-Inflammatory medications: etodolac Past anti-inflammatory medications (not necessarily for this reason for visit): betamethasone acetate,sod phos, etodolac, meloxicam, methylprednisolone, prednisone Medical Treatments: OTC NSAIDS for 3 Months or Greater (Ibuprofen) Previous Surgery: 1980 knee ligament reconstruction REVIEW OF SYSTEMS: PAIN ASSESSMENT: See HPI. MUSCULOSKELETAL: See HPI. Malnutrition Screening Tool (MST) 10/14/2022 Lost Weight Recently Without Trying? If Yes, Amount of Weight Loss(lbs) 0:No Eating Poorly Because of a Decreased Appetite 0:No Weight Loss Score (Calculated) 0 Appetite Score (Calculated) 0 Total MST Score (Calculated) 0 PAST MEDICAL HISTORY Diagnosis Date Amblyopia of eye, left Poor vision since childhood Carotid artery disease (HCC) 01/2015 20-39% ICA b/l Fibromyalgia Herniated disc, cervical Hyperlipidemia 06/21/2015 Hypertension Hypothyroid Lumbar herniated disc Marijuana use 08/09/2020 positive in tox screen 08/09/2020-do not prescribe controlled substances Ureteral stone 08/25/2019 PAST SURGICAL HISTORY Procedure Laterality Date APPENDECTOMY BREAST BIOPSY EYE MUSCLE SURG PROC UNLISTED HYSTERECTOMY HX Vaginal PAST SURGICAL HISTORY OF 1980 Right knee surgery REVISE MEDIAN N/CARPAL TUNNEL SURG Right 2010 right carpal tunnel release THROAT CULTURE lumps on vocal cords TUBAL LIGATION, FAMILY HISTORY Problem Relation Age of Onset Cancer Father age 73. Lung, brain. Stroke Father Stroke Mother age 65 other (Liver) Mother Diabetes Maternal Grandmother Glaucoma No Family History Detached Retina No Family History Macular Degen No Family History Social History Tobacco Use Smoking status: Never Smokeless tobacco: Never Tobacco comments: Parents smoked in childhood home. Spouse non-smoker. Vaping Use Vaping Use: Never used Substance Use Topics Alcohol use: No Drug use: Not Currently Types: Marijuana ALLERGIES: Fluoxetine and Seasonal Allergies MEDICATIONS: levothyroxine (SYNTHROID) 100 mcg tablet Take 1 tablet PO daily traZODone (DESYREL) 50 mg tablet Take 1 tablet by mouth daily at bedtime. levalbuterol tartrate HFA 45 mcg/actuation inhaler Inhale 1-2 Puffs as instructed every 4 hours as needed for wheezing/shortness of breath. albuterol HFA (VENTOLIN HFA) 90 mcg/actuation inhaler Inhale 2 Puffs as instructed every 4 hours as needed for wheezing/shortness of breath. atenolol (TENORMIN) 50 mg tablet Take 1 tablet by mouth once daily. aspirin, enteric coated (ASPIRIN, ENTERIC COATED) 81 mg EC tablet Take 1 tablet by mouth once daily. (Patient taking differently: Take 81 mg by mouth once daily. occasionally) B Complex Vitamins capsule Take 1 capsule by mouth once daily. FLUoxetine (PROZAC) 10 mg capsule Take 1 capsule by mouth once daily. terbinafine HCl (LAMISIL) 250 mg tablet Take 1 tablet by mouth once daily. (Patient not taking: Reported on 10/14/2022) fluticasone propionate (FLOVENT DISKUS) 100 mcg/actuation inhaler Inhale 1 Puff as instructed twice daily. For cough (Patient not taking: Reported on 10/14/2022) benzonatate (TESSALON PERLES) 100 mg capsule Take 1 capsule by mouth three times daily as needed for cough. etodolac (LODINE) 400 mg tablet Take 1 tablet by mouth twice daily. traMADol (ULTRAM) 50 mg tablet Take 1 tablet by mouth twice daily as needed for pain. (Patient not taking: Reported on 10/14/2022) FLUOXETINE 10 mg tablet TAKE 1 TABLET ONCE DAILY. omeprazole (PRILOSEC) 20 mg capsule Take 1 capsule by mouth once daily for 28 days. hydrOXYzine HCl (ATARAX) 25 mg tablet Take 1 tablet by mouth every 6 hours as needed for anxiety. OBJECTIVE PHYSICAL EXAM: There were no vitals taken for this visit. All other systems deferred. GENERAL: Appears healthy, well-nourished, no deformities. HABITUS: Normal GAIT: Normal, the patient did not have trouble getting onto the exam table. KNEE EXAM: Right: Please fit with Donjoy [id number]. Unload medial/compartment of the right/knee. Alignment: Varus deformity, Correctable Range of motion is 5 degrees in extension and 110 degrees of flexion. Extension La degrees Pain with ROM: Yes Effusion: Slight Tender to the palpation of Medial femoral condyle and Medial joint line Pain with patellar compression: No Stability: Anterior/Posterior stable and Varus/Valgus stable Hip Exam: flexion to 100+ degrees, full extension, internal/external rotation adequate, and no pain with log roll, [facility] Status: Sensation Intact, Moves foot and ankle up & down, and 2+ dorsalis pedis DATA: Most recent knee imaging was completed on 10/14/2022 (XR KNEE GENERAL 4V AP BOTH/PA BOTH/LAT/MERC RIGHT) . Attached is imaging for the order. Diagnostic tests reviewed for today's visit: Right knee X-Ray: Medial joint space noted to have severe degenerative changes, Lateral joint space noted to have mild degenerative changes, and Patellofemoral joint noted to have moderate degenerative changes The following conditions were addressed during the office visit today: none SIGNATURE: Belgica Enriquez MD PATIENT NAME: Vanesa Ferguson DATE: October 14, 2022 TIME: 2:18 PM documented in this encounter [facility] 09-17-2022 Note HNO ID: [id number] Author: Singh Baez, DO Service: ? Author Type: Physician Type: Progress Notes Filed: 09/17/2022 7:13 AM Note Text: CC: Vanesa Ferguson is a 67 year old female who presents to the office for follow up HPI: Anxiety symptoms, recently has been struggling with feeling anxious intermittently. She is unsure what is triggering the symptoms but has had a lot of stress she feels. No SI or HI. She is taking the prozac 10 mg a day and feels when she has tried to increase this in the past that it has made symptoms worse. Admits that she is trying to get more exercise with walking now that the weather is nice outside with Spring and feels this will also help her mood. When she gets anxious she gets shaky feeling. Has also had some fatigue symptoms. Tingling into feet, comes and goes, had nerve testing which was normal (EMG/NCT). Has seen [facility], is scheduled to have DAMIAN/PVR assessed. Hypothyroidism, taking levothyroxine 88 mcg a day, has fatigue symptoms and recently has felt a flutter sensation in her neck and sometimes a pressure in her neck. TSH Date Value Ref Range Status 09/13/2022 5.570 (H) 0.270 - 4.200 mIU/L Final Free T4 Date Value Ref Range Status 09/13/2022 1.4 0.9 - 1.7 ng/dL Final Denies any chest pressure or chest pain or dyspnea that is new. No syncope. Does get occasional lightheadedness feeling. Onychomycosis, toenail thickening and brittle, has tried Vicks rub on toenails without relief. has recently been taking Lamisil with benefit but still has some thickening/yellowing although improving with normal nail growth from base Chronic right knee pain, has been told has significant arthritis in this knee. Hasn't been interested in joint replacement surgery yet PAST MEDICAL HISTORY Diagnosis Date Amblyopia of eye, left Poor vision since childhood Carotid artery disease (HCC) 01/2015 20-39% ICA b/l Fibromyalgia Herniated disc, cervical Hyperlipidemia 06/21/2015 Hypertension Hypothyroid Lumbar herniated disc Marijuana use 08/09/2020 positive in tox screen 08/09/2020-do not prescribe controlled substances Ureteral stone 08/25/2019 PAST SURGICAL HISTORY Procedure Laterality Date APPENDECTOMY BREAST BIOPSY EYE MUSCLE SURG PROC UNLISTED HYSTERECTOMY HX Vaginal PAST SURGICAL HISTORY OF 1980 Right knee surgery REVISE MEDIAN N/CARPAL TUNNEL SURG Right 2010 right carpal tunnel release THROAT CULTURE lumps on vocal cords TUBAL LIGATION, Social History: Social History Tobacco Use Smoking status: Never Smokeless tobacco: Never Tobacco comments: Parents smoked in childhood home. Spouse non-smoker. Vaping Use Vaping Use: Never used Substance Use Topics Alcohol use: No Drug use: Not Currently Types: Marijuana FAMILY HISTORY Problem Relation Age of Onset Cancer Father age 73. Lung, brain. Stroke Father Stroke Mother age 65 other (Liver) Mother Diabetes Maternal Grandmother Glaucoma No Family History Detached Retina No Family History Macular Degen No Family History Current Outpatient prescriptions: traZODone (DESYREL) 50 mg tablet Take 1 tablet by mouth daily at bedtime. terbinafine HCl (LAMISIL) 250 mg tablet Take 1 tablet by mouth once daily. levalbuterol tartrate HFA 45 mcg/actuation inhaler Inhale 1-2 Puffs as instructed every 4 hours as needed for wheezing/shortness of breath. fluticasone propionate (FLOVENT DISKUS) 100 mcg/actuation inhaler Inhale 1 Puff as instructed twice daily. For cough benzonatate (TESSALON PERLES) 100 mg capsule Take 1 capsule by mouth three times daily as needed for cough. etodolac (LODINE) 400 mg tablet Take 1 tablet by mouth twice daily. traMADol (ULTRAM) 50 mg tablet Take 1 tablet by mouth twice daily as needed for pain. albuterol HFA (VENTOLIN HFA) 90 mcg/actuation inhaler Inhale 2 Puffs as instructed every 4 hours as needed for wheezing/shortness of breath. FLUOXETINE 10 mg tablet TAKE 1 TABLET ONCE DAILY. atenolol (TENORMIN) 50 mg tablet Take 1 tablet by mouth once daily. omeprazole (PRILOSEC) 20 mg capsule Take 1 capsule by mouth once daily for 28 days. aspirin, enteric coated (ASPIRIN, ENTERIC COATED) 81 mg EC tablet Take 1 tablet by mouth once daily. (Patient taking differently: Take 81 mg by mouth once daily. occasionally) B Complex Vitamins capsule Take 1 capsule by mouth once daily. FLUoxetine (PROZAC) 10 mg capsule Take 1 capsule by mouth once daily. levothyroxine (SYNTHROID) 100 mcg tablet Take 1 tablet PO daily hydrOXYzine HCl (ATARAX) 25 mg tablet Take 1 tablet by mouth every 6 hours as needed for anxiety. Allergies: ALLERGIES Allergen Reactions Fluoxetine Other: See Comments Tremor SE Only with high doses such as 40 mg Seasonal Allergies Other: See Comments Sinuses ROS: See HPI PE: 09/16/22 1348 BP: 120/80 Pulse: 68 Resp: 20 Temp: 36.5 ?C (97.7 ?F) TempSrc: Left Tympan (more content not included)... [facility] 09-17-2022 History of Present illness Narrative CC: Vanesa Ferguson is a 67 year old female who presents to the office for follow up HPI: Anxiety symptoms, recently has been struggling with feeling anxious intermittently. She is unsure what is triggering the symptoms but has had a lot of stress she feels. No SI or HI. She is taking the prozac 10 mg a day and feels when she has tried to increase this in the past that it has made symptoms worse. Admits that she is trying to get more exercise with walking now that the weather is nice outside with Spring and feels this will also help her mood. When she gets anxious she gets shaky feeling. Has also had some fatigue symptoms. Tingling into feet, comes and goes, had nerve testing which was normal (EMG/NCT). Has seen [facility], is scheduled to have DAMIAN/PVR assessed. Hypothyroidism, taking levothyroxine 88 mcg a day, has fatigue symptoms and recently has felt a flutter sensation in her neck and sometimes a pressure in her neck. TSH Date Value Ref Range Status 09/13/2022 5.570 (H) 0.270 - 4.200 mIU/L Final Free T4 Date Value Ref Range Status 09/13/2022 1.4 0.9 - 1.7 ng/dL Final Denies any chest pressure or chest pain or dyspnea that is new. No syncope. Does get occasional lightheadedness feeling. Onychomycosis, toenail thickening and brittle, has tried Vicks rub on toenails without relief. has recently been taking Lamisil with benefit but still has some thickening/yellowing although improving with normal nail growth from base Chronic right knee pain, has been told has significant arthritis in this knee. Hasn't been interested in joint replacement surgery yet PAST MEDICAL HISTORY Diagnosis Date Amblyopia of eye, left Poor vision since childhood Carotid artery disease (HCC) 01/2015 20-39% ICA b/l Fibromyalgia Herniated disc, cervical Hyperlipidemia 06/21/2015 Hypertension Hypothyroid Lumbar herniated disc Marijuana use 08/09/2020 positive in tox screen 08/09/2020-do not prescribe controlled substances Ureteral stone 08/25/2019 PAST SURGICAL HISTORY Procedure Laterality Date APPENDECTOMY BREAST BIOPSY EYE MUSCLE SURG PROC UNLISTED HYSTERECTOMY HX Vaginal PAST SURGICAL HISTORY OF 1980 Right knee surgery REVISE MEDIAN N/CARPAL TUNNEL SURG Right 2011 right carpal tunnel release THROAT CULTURE lumps on vocal cords TUBAL LIGATION, Social History: Social History Tobacco Use Smoking status: Never Smokeless tobacco: Never Tobacco comments: Parents smoked in childhood home. Spouse non-smoker. Vaping Use Vaping Use: Never used Substance Use Topics Alcohol use: No Drug use: Not Currently Types: Marijuana FAMILY HISTORY Problem Relation Age of Onset Cancer Father age 73. Lung, brain. Stroke Father Stroke Mother age 65 other (Liver) Mother Diabetes Maternal Grandmother Glaucoma No Family History Detached Retina No Family History Macular Degen No Family History Current Outpatient prescriptions: traZODone (DESYREL) 50 mg tablet Take 1 tablet by mouth daily at bedtime. terbinafine HCl (LAMISIL) 250 mg tablet Take 1 tablet by mouth once daily. levalbuterol tartrate HFA 45 mcg/actuation inhaler Inhale 1-2 Puffs as instructed every 4 hours as needed for wheezing/shortness of breath. fluticasone propionate (FLOVENT DISKUS) 100 mcg/actuation inhaler Inhale 1 Puff as instructed twice daily. For cough benzonatate (TESSALON PERLES) 100 mg capsule Take 1 capsule by mouth three times daily as needed for cough. etodolac (LODINE) 400 mg tablet Take 1 tablet by mouth twice daily. traMADol (ULTRAM) 50 mg tablet Take 1 tablet by mouth twice daily as needed for pain. albuterol HFA (VENTOLIN HFA) 90 mcg/actuation inhaler Inhale 2 Puffs as instructed every 4 hours as needed for wheezing/shortness of breath. FLUOXETINE 10 mg tablet TAKE 1 TABLET ONCE DAILY. atenolol (TENORMIN) 50 mg tablet Take 1 tablet by mouth once daily. omeprazole (PRILOSEC) 20 mg capsule Take 1 capsule by mouth once daily for 28 days. aspirin, enteric coated (ASPIRIN, ENTERIC COATED) 81 mg EC tablet Take 1 tablet by mouth once daily. (Patient taking differently: Take 81 mg by mouth once daily. occasionally) B Complex Vitamins capsule Take 1 capsule by mouth once daily. FLUoxetine (PROZAC) 10 mg capsule Take 1 capsule by mouth once daily. levothyroxine (SYNTHROID) 100 mcg tablet Take 1 tablet PO daily hydrOXYzine HCl (ATARAX) 25 mg tablet Take 1 tablet by mouth every 6 hours as needed for anxiety. Allergies: ALLERGIES Allergen Reactions Fluoxetine Other: See Comments Tremor SE Only with high doses such as 40 mg Seasonal Allergies Other: See Comments Sinuses ROS: See HPI PE: 09/16/22 1348 BP: 120/80 Pulse: 68 Resp: 20 Temp: 36.5 C (97.7 F) TempSrc: Left Tympanic Weight: 68.5 kg (151 lb) Gen: A&O, NAD, non-toxic appearing, Pleasant, cooperative, fatigued appearing HEENT: NT/AC, PERRLA, wearing glasses, EOMs intact b/l, nares clear and patent b/l, pharynx without erythema, exudate or lesions. Uvula midline. MMM, EACs without erythema or debris. TMs pearly foster with intact landmarks b/l. Neck: supple, No cervical LAD, no thyromegaly, no carotid bruits CV: RRR, normal S1 and S2, no murmurs, no gallops, no rubs, Pulses 2+ and symmetric in UE and LE b/l Lungs: normal respiratory effort, CTA b/l, no wheezing or rhonchi or rales Abd: soft, NT, ND, +BS, no hepatosplenomegaly MS: FROM all 4 extremities Neuro: CN II-XII intact b/l, strength 5/5 b/l UE and LE, DTRs 2/4 UE and LE, sensation intact. Skin: warm, dry, intact, No rashes or lesions on exposed skin. Improving onychomycosis thickening of b/l left great toenail and 4-5th toenails Normal pulses ASSESSMENT/PLAN: 1. Onychomycosis - ICD9: 110.1, ICD10: B35.1 (primary diagnosis) Continue Lamisil x 3 more months, much improved. Labs are stable - COMP METABOLIC PANEL - CBC + DIFF 2. Hypothyroidism, unspecified type - ICD9: 244.9, ICD10: E03.9 - Instructed patient on importance of taking on an empty stomach either first thing in the morning or at bedtime. - Increase Synthroid dose to 0.100 mg Stable - Behavioral intervention and - Pharmacological intervention - LEVOTHYROXINE 100 MCG TABLET - TSH BLD - T4 FREE/FREE THYROX - T3 FREE BLD - COMP METABOLIC PANEL - CBC + DIFF 3. Paresthesia of foot, bilateral - ICD9: 782.0, ICD10: R20.2 Check labs, start on B complex supplement, her EMG/NCT were normal. May also be related to her under treated thyroid which we are adjusting her thyroid medication today - VITAMIN B6/PYRIDOXIN 4. FRANCISCO (generalized anxiety disorder) - ICD9: 300.02, ICD10: F41.1 - continue Prozac, occasionally flared up 5. Fatigue, unspecified type - ICD9: 780.79, ICD10: R53.83 - see above, likely multifactorial 6. Right knee pain, unspecified chronicity - ICD9: 719.46, ICD10: M25.561 - f/u with Orthopedics. Singh Baez DO To ER if develops chest pain, shortness of breath, or severe worsening of symptoms. Discussed risks, benefits, alternatives, and potential side effects of medications. Patient expressed understanding and agreed with the plan. Singh Baez DO [address] [place] [address] documented in this encounter [facility] 09-12-2022 Note HNO ID: [id number] Author: Eddy Arciniega MD Service: ? Author Type: Physician Type: Progress Notes Filed: 09/12/2022 11:11 AM Note Text: UNIVERSAL PROTOCOL / SAFETY CHECKLIST Procedure to be Performed: EMG Sign In: A Moment of CARE was completed. Personnel directly involved with the procedure wore the appropriate PPE (Personal Protective Equipment). Patient/Surrogate Stated/Verified: PATIENT VERIFIED(optional for EMERGENT procedures): Patient name, Date of , Relevant allergies, and The intended procedure Time Out Communication: Intended patient and procedure match the source documents. Correct side/site marked and visible. Sign Out: SIGN OUT (optional for EMERGENT procedures): Post-procedure follow-up management communicated and Plan of Care Visit completed when applicable. Kelsie Gonzalez NCST Eddy Arciniega MD (sign out) [facility] 09-12-2022 History of Present illness Narrative UNIVERSAL PROTOCOL / SAFETY CHECKLIST Procedure to be Performed: EMG Sign In: A Moment of CARE was completed. Personnel directly involved with the procedure wore the appropriate PPE (Personal Protective Equipment). Patient/Surrogate Stated/Verified: PATIENT VERIFIED(optional for EMERGENT procedures): Patient name, Date of , Relevant allergies, and The intended procedure Time Out Communication: Intended patient and procedure match the source documents. Correct side/site marked and visible. Sign Out: SIGN OUT (optional for EMERGENT procedures): Post-procedure follow-up management communicated and Plan of Care Visit completed when applicable. [facility] Eddy Arciniega MD (sign out) documented in this encounter [facility] 08-20-2022 Note HNO ID: [id number] Author: Kaylee Valdesjt Service: ? Author Type: Physician Type: Progress Notes Filed: 08/20/2022 9:20 AM Note Text: Initial Podiatric Office Visit: Chief Complaint: This 67 year old female who presents with chief complaint:burning in foot HPI Patient presents to clinic with complaint of burning in both feet. Patient states the burning is present all day long. She states the burning and at times tingling has been going on for 3 months. She states that when she goes to bed, she will even experience pain radiating to her legs. She will treat with topical cbd oils. At times, she will take tramadol but not often. She denies history of diabetes She denies smoking. PAIN EVALUATION 08/13/2022 1013 08/20/2022 0845 Pain Level: 9 -- Pain Location: Foot-Right -- B/L feet Description: Aching;Burning;Dull;Itching;Raw;S harp;Sore;Throbbing;Tingling -- Duration Units: Months -- Frequency: Continuous -- Intervention/Comfort measure: Reposition;Pillow support -- Hemoglobin A1C (%) Date Value 11/12/2021 4.8 07/24/2020 4.9 01/28/2019 4.9 11/08/2016 4.9 03/12/2015 5.1 PCP: Singh Baez DO PAST MEDICAL HISTORY Diagnosis Date Amblyopia of eye, left Poor vision since childhood Carotid artery disease (HCC) 01/2015 20-39% ICA b/l Fibromyalgia Herniated disc, cervical Hyperlipidemia 06/21/2015 Hypertension Hypothyroid Lumbar herniated disc Marijuana use 08/09/2020 positive in tox screen 08/09/2020-do not prescribe controlled substances Ureteral stone 08/25/2019 Current Outpatient Medications Medication Sig traZODone (DESYREL) 50 mg tablet Take 1 tablet by mouth daily at bedtime. FLUoxetine (PROZAC) 10 mg capsule Take 1 capsule by mouth once daily. levothyroxine (SYNTHROID) 88 mcg tablet Take 1 tablet PO daily terbinafine HCl (LAMISIL) 250 mg tablet Take 1 tablet by mouth once daily. levalbuterol tartrate HFA 45 mcg/actuation inhaler Inhale 1-2 Puffs as instructed every 4 hours as needed for wheezing/shortness of breath. traMADol (ULTRAM) 50 mg tablet Take 1 tablet by mouth twice daily as needed for pain. albuterol HFA (VENTOLIN HFA) 90 mcg/actuation inhaler Inhale 2 Puffs as instructed every 4 hours as needed for wheezing/shortness of breath. atenolol (TENORMIN) 50 mg tablet Take 1 tablet by mouth once daily. omeprazole (PRILOSEC) 20 mg capsule Take 1 capsule by mouth once daily for 28 days. aspirin, enteric coated (ASPIRIN, ENTERIC COATED) 81 mg EC tablet Take 1 tablet by mouth once daily. (Patient taking differently: Take 81 mg by mouth once daily. occasionally) B Complex Vitamins capsule Take 1 capsule by mouth once daily. fluticasone propionate (FLOVENT DISKUS) 100 mcg/actuation inhaler Inhale 1 Puff as instructed twice daily. For cough (Patient not taking: Reported on 08/20/2022) benzonatate (TESSALON PERLES) 100 mg capsule Take 1 capsule by mouth three times daily as needed for cough. etodolac (LODINE) 400 mg tablet Take 1 tablet by mouth twice daily. (Patient not taking: Reported on 08/20/2022) FLUOXETINE 10 mg tablet TAKE 1 TABLET ONCE DAILY. hydrOXYzine HCl (ATARAX) 25 mg tablet Take 1 tablet by mouth every 6 hours as needed for anxiety. No current facility-administered medications for this visit. ALLERGIES Allergen Reactions Fluoxetine Other: See Comments Tremor SE Only with high doses such as 40 mg Seasonal Allergies Other: See Comments Sinuses PAST SURGICAL HISTORY Procedure Laterality Date APPENDECTOMY BREAST BIOPSY EYE MUSCLE SURG PROC UNLISTED HYSTERECTOMY HX Vaginal PAST SURGICAL HISTORY OF 1980 Right knee surgery REVISE MEDIAN N/CARPAL TUNNEL SURG Right 2011 right carpal tunnel release THROAT CULTURE lumps on vocal cords TUBAL LIGATION, FAMILY HISTORY Problem Relation Age of Onset Cancer Father age 73. Lung, brain. Stroke Father Stroke Mother age 65 other (Liver) Mother Diabetes Maternal Grandmother Glaucoma No Family History Detached Retina No Family History Macular Degen No Family History Social History Tobacco Use Smoking status: Never Smokeless tobacco: Never Tobacco comments: Parents smoked in childhood home. Spouse non-smoker. Vaping Use Vaping Use: Never used Substance Use Topics Alcohol use: No Drug use: Not Currently Types: Marijuana REVIEW OF SYSTEMS GENERAL: Negative for Malaise, significant weight loss, fever RESPIRATORY: Negative for cough, wheezing and shortness of breath CARDIOVASCULAR: Negative for chest pain, leg swelling and palpitations GI: Negative for abdominal discomfort, blood in stools or black stools and change in bowel habits : Negative for dysuria, frequency and incontinence MUSCULOSKELETAL: Negative for joint pain or swelling, back pain, and muscle pain. SKIN: Negative for lesions, rash, and itching. HEMATOLOGY/LYMPHOLOGY Negative for prolonged bleeding, bruising easily, a (more content not included)... [facility] 08-20-2022 Note HNO ID: [id number] Author: Stephany Gonzales RN Service: ? Author Type: ? Type: Progress Notes Filed: 08/20/2022 9:20 AM Note Text: AMB ROOMING INTAKE FLOWSHEET DATA Pain Pain Level: 9 Pain Location: (B/L feet) Description: Aching, Burning, Dull, Itching, Raw, Sharp, Sore, Throbbing, Tingling Duration Units: Months Frequency: Continuous Intervention/Comfort measure: Reposition, Pillow support Patient presents with: Left Foot - New Patient, Pain Right Foot - New Patient, Pain Patient c/o burning pain in both feet for the past few months. No injury. Worse in the heels and at night. [facility] 08-05-2022 Miscellaneous Notes Patient has been identified by name and date of : Yes Last office visit in this department: 06/16/2022 RX INSTRUCTIONS: Patient aware RX will be sent to pharmacy. No need to notify patient. Patient phones requesting refills as follows: Requested Prescriptions Pending Prescriptions Disp Refills traZODone (DESYREL) 50 mg tablet 90 tablet 1 Sig: Take 1 tablet by mouth daily at bedtime. Please review and advise. Erika Hayes documented in this encounter [facility] 06-18-2022 Note HNO ID: [id number] Author: Singh Baez, DO Service: ? Author Type: Physician Type: Progress Notes Filed: 06/18/2022 7:33 AM Note Text: CC: Vanesa Ferguson is a 66 year old female who presents to the office for follow up HPI: Anxiety symptoms, recently has been struggling with feeling anxious intermittently. She is unsure what is triggering the symptoms but has had a lot of stress she feels. No SI or HI. She is taking the prozac 10 mg a day and feels when she has tried to increase this in the past that it has made symptoms worse. Admits that she is trying to get more exercise with walking now that the weather is nice outside with Spring and feels this will also help her mood. When she gets anxious she gets shaky feeling. Has also had some fatigue symptoms. Hypothyroidism, taking levothyroxine 75 mcg a day, has fatigue TSH Date Value Ref Range Status 04/11/2022 2.160 0.270 - 4.200 mIU/L Final Onychomycosis, toenail thickening and brittle, has tried Vicks rub on toenails without relief. Wondering other options. Glucose (mg/dL) Date Value 04/11/2022 99 07/20/2020 141 Potassium (mmol/L) Date Value 04/11/2022 4.1 07/20/2020 3.7 Sodium (mmol/L) Date Value 04/11/2022 137 07/20/2020 140 Chloride (mmol/L) Date Value 04/11/2022 102 07/20/2020 103 CO2 (mmol/L) Date Value 04/11/2022 26 07/20/2020 24 Creatinine (mg/dL) Date Value 04/11/2022 0.81 02/25/2021 0.73 BUN (mg/dL) Date Value 04/11/2022 12 07/20/2020 12 Anion Gap (mmol/L) Date Value 04/11/2022 9 07/20/2020 13 Calcium (mg/dL) Date Value 07/20/2020 9.6 Calcium, Total (mg/dL) Date Value 04/11/2022 9.5 Protein, Total (g/dL) Date Value 04/11/2022 6.9 07/20/2020 6.7 Albumin (g/dL) Date Value 04/11/2022 4.4 07/20/2020 4.5 Bilirubin, Total (mg/dL) Date Value 04/11/2022 0.7 07/20/2020 0.8 Alkaline Phosphatase (U/L) Date Value 04/11/2022 91 07/20/2020 91 AST (U/L) Date Value 04/11/2022 21 07/20/2020 29 ALT (U/L) Date Value 04/11/2022 21 07/20/2020 34 PAST MEDICAL HISTORY Diagnosis Date Amblyopia of eye, left Poor vision since childhood Carotid artery disease (HCC) 01/2015 20-39% ICA b/l Fibromyalgia Herniated disc, cervical Hyperlipidemia 06/21/2015 Hypertension Hypothyroid Lumbar herniated disc Marijuana use 08/09/2020 positive in tox screen 08/09/2020-do not prescribe controlled substances Ureteral stone 08/25/2019 PAST SURGICAL HISTORY Procedure Laterality Date APPENDECTOMY BREAST BIOPSY EYE MUSCLE SURG PROC UNLISTED HYSTERECTOMY HX Vaginal PAST SURGICAL HISTORY OF 1980 Right knee surgery REVISE MEDIAN N/CARPAL TUNNEL SURG Right 2010 right carpal tunnel release THROAT CULTURE lumps on vocal cords TUBAL LIGATION, Current Outpatient Medications Medication Sig levalbuterol tartrate HFA 45 mcg/actuation inhaler Inhale 1-2 Puffs as instructed every 4 hours as needed for wheezing/shortness of breath. fluticasone propionate (FLOVENT DISKUS) 100 mcg/actuation inhaler Inhale 1 Puff as instructed twice daily. For cough traZODone (DESYREL) 50 mg tablet TAKE 1 TABLET AT BEDTIME benzonatate (TESSALON PERLES) 100 mg capsule Take 1 capsule by mouth three times daily as needed for cough. etodolac (LODINE) 400 mg tablet Take 1 tablet by mouth twice daily. traMADol (ULTRAM) 50 mg tablet Take 1 tablet by mouth twice daily as needed for pain. albuterol HFA (VENTOLIN HFA) 90 mcg/actuation inhaler Inhale 2 Puffs as instructed every 4 hours as needed for wheezing/shortness of breath. FLUOXETINE 10 mg tablet TAKE 1 TABLET ONCE DAILY. atenolol (TENORMIN) 50 mg tablet Take 1 tablet by mouth once daily. omeprazole (PRILOSEC) 20 mg capsule Take 1 capsule by mouth once daily for 28 days. aspirin, enteric coated (ASPIRIN, ENTERIC COATED) 81 mg EC tablet Take 1 tablet by mouth once daily. (Patient taking differently: Take 81 mg by mouth once daily. occasionally) B Complex Vitamins capsule Take 1 capsule by mouth once daily. FLUoxetine (PROZAC) 10 mg capsule Take 1 capsule by mouth once daily. levothyroxine (SYNTHROID) 88 mcg tablet Take 1 tablet PO daily terbinafine HCl (LAMISIL) 250 mg tablet Take 1 tablet by mouth once daily. hydrOXYzine HCl (ATARAX) 25 mg tablet Take 1 tablet by mouth every 6 hours as needed for anxiety. No current facility-administered medications for this visit. ALLERGIES Allergen Reactions Fluoxetine Other: See Comments Tremor SE Only with high doses such as 40 mg Seasonal Allergies Other: See Comments Sinuses Social History Tobacco Use Smoking status: Never Smokeless tobacco: Never Tobacco comments: Parents smoked in childhood home. Spouse non-smoker. Vaping Use Vaping Use: Never used Substance Use Topics Alcohol use: No Drug use: Not Currently Types: Marijuana ROS: See HPI PE: BP 136/84 Pulse 80 Temp (Src) 96.8 (Right Tympanic) Resp (more content not included)... [facility] 06-04-2022 Note Patient Outreach (IN TMMN) VANESA FERGUSON ([id number]) 1955 F Date Time Provider Department 06/04/22 SINGH BAEZ During your visit today, we recorded the following information about you: Allergies As of Date: 06/04/2022 Noted Allergy Reaction FLUOXETINE 03/01/2019 14 - Other: See Comments Comments: Tremor SE Only with high doses such as 40 mg SEASONAL ALLERGIES 12/31/2018 14 - Other: See Comments Comments: Sinuses Date Reviewed: 03/17/2022 Reviewed by: Itzel Rosario LPN - Fully Assessed Visit Diagnosis:Encounter for screening mammogram for breast cancer [Z12.31] Order(s):[facility] SCREENING [[id number]] Order #: [id number] FUTURE Prescriptions as of 06/09/2022 - FLUoxetine (PROZAC) 10 mg capsule Take 1 capsule by mouth once daily. - levalbuterol tartrate HFA 45 mcg/actuation inhaler Inhale 1-2 Puffs as instructed every 4 hours as needed for wheezing/shortness of breath. - fluticasone propionate (FLOVENT DISKUS) 100 mcg/actuation inhaler Inhale 1 Puff as instructed twice daily. For cough - traZODone (DESYREL) 50 mg tablet TAKE 1 TABLET AT BEDTIME - benzonatate (TESSALON PERLES) 100 mg capsule Take 1 capsule by mouth three times daily as needed for cough. - etodolac (LODINE) 400 mg tablet Take 1 tablet by mouth twice daily. - traMADol (ULTRAM) 50 mg tablet Take 1 tablet by mouth twice daily as needed for pain. - albuterol HFA (VENTOLIN HFA) 90 mcg/actuation inhaler Inhale 2 Puffs as instructed every 4 hours as needed for wheezing/shortness of breath. - FLUOXETINE 10 mg tablet TAKE 1 TABLET ONCE DAILY. - levothyroxine (SYNTHROID) 75 mcg tablet Take 1 tablet PO daily - atenolol (TENORMIN) 50 mg tablet Take 1 tablet by mouth once daily. - omeprazole (PRILOSEC) 20 mg capsule Take 1 capsule by mouth once daily for 28 days. - terbinafine HCl (LAMISIL) 1 % cream Apply to affected area twice daily. - hydrOXYzine HCl (ATARAX) 25 mg tablet Take 1 tablet by mouth every 6 hours as needed for anxiety. - aspirin, enteric coated (ASPIRIN, ENTERIC COATED) 81 mg EC tablet Take 1 tablet by mouth once daily. - B Complex Vitamins capsule Take 1 capsule by mouth once daily. Problem List As Of Date 06/04/2022 Noted Resolved Arm numbness left [R20.0] 12/12/2014 Left arm pain [M79.602] 12/12/2014 Essential hypertension [I10] 12/30/2014 Pain of right upper arm [M79.621] 02/07/2015 Chronic pain of right knee [M25.561, G89.29] 05/31/2015 Post-traumatic osteoarthritis of right knee [M1*05/31/2015 Hypertension [I10] 06/20/2015 Hypothyroid [E03.9] 06/20/2015 Carotid artery disease (HCC) [I77.9] 01/09/2015 Herniated disc, cervical [M50.20] 06/20/2015 Lumbar herniated disc [M51.26] 06/20/2015 Fibromyalgia [M79.7] Hyperlipidemia [E78.5] 06/21/2015 Left carpal tunnel syndrome [G56.02] 07/02/2015 MVP (mitral valve prolapse) [I34.1] 09/15/2018 Non-rheumatic mitral regurgitation, mild [I34.0]09/24/2018 SOB (shortness of breath) [R06.02] 09/24/2018 Palpitations, rare, do not affect her daily lif*09/24/2018 Dizziness [R42] 09/24/2018 Subjective visual disturbance [H53.10] 11/19/2018 Dry eye syndrome of both eyes [H04.123] 11/19/2018 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] 11/19/2018 Osteoarthritis of spine with radiculopathy, cer*02/15/2019 Multiple subsegmental pulmonary emboli without *04/16/2020 [id number] condition [U09.9] 04/16/2020 Fatigue [R53.83] 04/16/2020 Generalized weakness [R53.1] 04/16/2020 Onychomycosis [B35.1] 06/22/2020 Cannabis abuse [F12.10] 08/09/2020 08/09/2020 Marijuana use [F12.90] 08/09/2020 Situational anxiety [F41.8] 01/23/2021 SVT (supraventricular tachycardia) (HCC) [I47.1]01/23/2021 Toenail fungus [B35.1] 01/23/2021 History of COVID-19 [Z86.16] 04/24/2021 Vitamin D deficiency [E55.9] 04/24/2021 Primary insomnia [F51.01] 04/24/2021 Encounter Status:Closed by SILVESTRE LUNA on 06/09/22 [facility] 04-24-2022 Note Patient Outreach (NE TNAV) VANESA FERGUSON ([id number]) 1955 F Date Time Provider Department 04/24/22 MARCO FISHER During your visit today, we recorded the following information about you: Marco Fisher MA 04/24/2022 11:35 AM Signed POPULATION HEALTH NAVIGATION OUTREACH Action/April 24, 2022 [place] [facility] Diagnosis with HCC gap left: I77.9 - Carotid artery disease (HCC) I47.1 - SVT (supraventricular tachycardia) (HCC) - [id number] Last Billed 04/23/2021 Care Gaps/Scheduling needs Annual exam BP check Mammogram Outcome/Action Lm on Mychart sent Marco Fisher MA Patient Identified by Name and : NO Outreach Outcome/Action Unable to reach patient: Left message WildFire Connectionshart message sent Did you use a PCP flex slot to schedule this appointment? N/A Reason for Outreach HCC or suspected condition Payer: Payor: [employer] / Plan: [employer]LA [employer] HMO / Product Type: HMO / Care Gap Reviewed:: Annual Wellness visit Breast Cancer screening Controlling Blood Pressure Reminder: Reminder note to check Health Maintenance for items below Health Maintenance items due: COVID-19 VACCINE(1) Never done DTAP,TDAP,TD(1 - Tdap) Never done SHINGRIX VACCINE(1 of 2) Never done PNEUMOCOCCAL: 65+(1 - PCV) Never done BP CONTROLLED (<130/80) due on 12/25/2021 ADVANCE DIRECTIVE DISCUSSION Never done MAMMOGRAM due on 04/22/2022 Navigation Signature: Marco Fisher MA April 24, 2022 11:31 AM Allergies As of Date: 04/24/2022 Noted Allergy Reaction FLUOXETINE 03/01/2019 14 - Other: See Comments Comments: Tremor SE Only with high doses such as 40 mg SEASONAL ALLERGIES 12/31/2018 14 - Other: See Comments Comments: Sinuses Date Reviewed: 03/17/2022 Reviewed by: Itzel Rosario LPN - Fully Assessed Reason for Visit: Population Health Navigation Outreach [3910] Cmt: [facility] Prescriptions as of 04/24/2022 - FLUoxetine (PROZAC) 10 mg capsule Take 1 capsule by mouth once daily. - levalbuterol tartrate HFA 45 mcg/actuation inhaler Inhale 1-2 Puffs as instructed every 4 hours as needed for wheezing/shortness of breath. - fluticasone propionate (FLOVENT DISKUS) 100 mcg/actuation inhaler Inhale 1 Puff as instructed twice daily. For cough - traZODone (DESYREL) 50 mg tablet TAKE 1 TABLET AT BEDTIME - benzonatate (TESSALON PERLES) 100 mg capsule Take 1 capsule by mouth three times daily as needed for cough. - etodolac (LODINE) 400 mg tablet Take 1 tablet by mouth twice daily. - traMADol (ULTRAM) 50 mg tablet Take 1 tablet by mouth twice daily as needed for pain. - albuterol HFA (VENTOLIN HFA) 90 mcg/actuation inhaler Inhale 2 Puffs as instructed every 4 hours as needed for wheezing/shortness of breath. - FLUOXETINE 10 mg tablet TAKE 1 TABLET ONCE DAILY. - levothyroxine (SYNTHROID) 75 mcg tablet Take 1 tablet PO daily - atenolol (TENORMIN) 50 mg tablet Take 1 tablet by mouth once daily. - omeprazole (PRILOSEC) 20 mg capsule Take 1 capsule by mouth once daily for 28 days. - terbinafine HCl (LAMISIL) 1 % cream Apply to affected area twice daily. - hydrOXYzine HCl (ATARAX) 25 mg tablet Take 1 tablet by mouth every 6 hours as needed for anxiety. - aspirin, enteric coated (ASPIRIN, ENTERIC COATED) 81 mg EC tablet Take 1 tablet by mouth once daily. - B Complex Vitamins capsule Take 1 capsule by mouth once daily. Problem List As Of Date 04/24/2022 Noted Resolved Arm numbness left [R20.0] 12/12/2014 Left arm pain [M79.602] 12/12/2014 Essential hypertension [I10] 12/30/2014 Pain of right upper arm [M79.621] 02/07/2015 Chronic pain of right knee [M25.561, G89.29] 05/31/2015 Post-traumatic osteoarthritis of right knee [M1*05/31/2015 Hypertension [I10] 06/20/2015 Hypothyroid [E03.9] 06/20/2015 Carotid artery disease (HCC) [I77.9] 01/09/2015 Herniated disc, cervical [M50.20] 06/20/2015 Lumbar herniated disc [M51.26] 06/20/2015 Fibromyalgia [M79.7] Hyperlipidemia [E78.5] 06/21/2015 Left carpal tunnel syndrome [G56.02] 07/02/2015 MVP (mitral valve prolapse) [I34.1] 09/15/2018 Non-rheumatic mitral regurgitation, mild [I34.0]09/24/2018 SOB (shortness of breath) [R06.02] 09/24/2018 Palpitations, rare, do not affect her daily lif*09/24/2018 Dizziness [R42] 09/24/2018 Subjective visual disturbance [H53.10] 11/19/2018 Dry eye syndrome of both eyes [H04.123] 11/19/2018 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 [facility] 04-24-2022 Note HNO ID: [id number] Author: Marco Fisher MA Service: ? Author Type: Chemical Processor Type: Progress Notes Filed: 04/24/2022 11:35 AM Note Text: POPULATION HEALTH NAVIGATION OUTREACH Action/April 24, 2022 [place] [facility] Diagnosis with HCC gap left: I77.9 - Carotid artery disease (HCC) I47.1 - SVT (supraventricular tachycardia) (HCC) - [place] [address] Last Billed 04/23/2021 Care Gaps/Scheduling needs Annual exam BP check Mammogram Outcome/Action Lm on Vm Cannonballhart sent Marco Fisher MA Patient Identified by Name and : NO Outreach Outcome/Action Unable to reach patient: Left message [employer] Connections[employer] message sent Did you use a PCP flex slot to schedule this appointment? N/A Reason for Outreach HCC or suspected condition Payer: Payor: [employer]LA [employer] / Plan: [employer] HMO / Product Type: HMO / Care Gap Reviewed:: Annual Wellness visit Breast Cancer screening Controlling Blood Pressure Reminder: Reminder note to check Health Maintenance for items below Health Maintenance items due: COVID-19 VACCINE(1) Never done DTAP,TDAP,TD(1 - Tdap) Never done SHINGRIX VACCINE(1 of 2) Never done PNEUMOCOCCAL: 65+(1 - PCV) Never done BP CONTROLLED (<130/80) due on 12/25/2021 ADVANCE DIRECTIVE DISCUSSION Never done MAMMOGRAM due on 04/22/2022 Navigation Signature: Marco Fisher MA April 24, 2022 11:31 AM [facility] 04-24-2022 History of Present illness Narrative POPULATION HEALTH NAVIGATION OUTREACH Action/April 24, 2022 [place] [facility] Diagnosis with HCC gap left: I77.9 - Carotid artery disease (HCC) I47.1 - SVT (supraventricular tachycardia) (HCC) - [place] [address] Last Billed 04/23/2021 Care Gaps/Scheduling needs Annual exam BP check Mammogram Outcome/Action Lm on Vm Mychart sent Marco Fisher MA Patient Identified by Name and : NO Outreach Outcome/Action Unable to reach patient: Left message MyChart message sent Did you use a PCP flex slot to schedule this appointment? N/A Reason for Outreach HCC or suspected condition Payer: Payor: [employer] / Plan: KAYLA [employer] HMO / Product Type: HMO / Care Gap Reviewed:: Annual Wellness visit Breast Cancer screening Controlling Blood Pressure Reminder: Reminder note to check Health Maintenance for items below Health Maintenance items due: COVID-19 VACCINE(1) Never done DTAP,TDAP,TD(1 - Tdap) Never done SHINGRIX VACCINE(1 of 2) Never done PNEUMOCOCCAL: 65+(1 - PCV) Never done BP CONTROLLED (<130/80) due on 12/25/2021 ADVANCE DIRECTIVE DISCUSSION Never done MAMMOGRAM due on 04/22/2022 Navigation Signature: Marco Fisher MA April 24, 2022 11:31 AM documented in this encounter [facility] 04-15-2022 Miscellaneous Notes Pt. informed via My Chart. Her anion gap is in target range, this would not be affecting anything. Usha Taylor APRN.TRAFFIC LIEUTENANT Pt's labs have been reviewed and were noted to be normal. Please advise. Pt's result for Anion Gap was 9. Dina Alexandra Ma documented in this encounter [facility] 04-09-2022 Miscellaneous Notes ir documented in this encounter [facility] 03-17-2022 Note HNO ID: [id number] Author: Singh Baez, DO Service: ? Author Type: Physician Type: Progress Notes Filed: 03/17/2022 4:47 PM Note Text: CC: Vanesa Ferguson is a 66 year old female who presents to the office for cough HPI: Cough, prolonged at >6 weeks. Was seen in urgent care 1 month ago and had CXR which was normal and was started on doxycycline medication. She states that her cough and ear pressure symptoms have continued since then, no hemoptysis or sputum production or further fevers or chills symptoms. Albuterol inhaler makes her feel very jittery so she avoids using it. Willing to try an alternative. States that this jittery feeling makes her anxious feeling. PAST MEDICAL HISTORY Diagnosis Date Amblyopia of eye, left Poor vision since childhood Carotid artery disease (HCC) 01/2015 20-39% ICA b/l Fibromyalgia Herniated disc, cervical Hyperlipidemia 06/21/2015 Hypertension Hypothyroid Lumbar herniated disc Marijuana use 08/09/2020 positive in tox screen 08/09/2020-do not prescribe controlled substances Ureteral stone 08/25/2019 PAST SURGICAL HISTORY Procedure Laterality Date APPENDECTOMY BREAST BIOPSY EYE MUSCLE SURG PROC UNLISTED HYSTERECTOMY HX Vaginal PAST SURGICAL HISTORY OF 1980 Right knee surgery REVISE MEDIAN N/CARPAL TUNNEL SURG Right 2010 right carpal tunnel release THROAT CULTURE lumps on vocal cords TUBAL LIGATION, Current Outpatient Medications Medication Sig traZODone (DESYREL) 50 mg tablet TAKE 1 TABLET AT BEDTIME benzonatate (TESSALON PERLES) 100 mg capsule Take 1 capsule by mouth three times daily as needed for cough. etodolac (LODINE) 400 mg tablet Take 1 tablet by mouth twice daily. traMADol (ULTRAM) 50 mg tablet Take 1 tablet by mouth twice daily as needed for pain. albuterol HFA (VENTOLIN HFA) 90 mcg/actuation inhaler Inhale 2 Puffs as instructed every 4 hours as needed for wheezing/shortness of breath. FLUOXETINE 10 mg tablet TAKE 1 TABLET ONCE DAILY. levothyroxine (SYNTHROID) 75 mcg tablet Take 1 tablet PO daily atenolol (TENORMIN) 50 mg tablet Take 1 tablet by mouth once daily. omeprazole (PRILOSEC) 20 mg capsule Take 1 capsule by mouth once daily for 28 days. terbinafine HCl (LAMISIL) 1 % cream Apply to affected area twice daily. aspirin, enteric coated (ASPIRIN, ENTERIC COATED) 81 mg EC tablet Take 1 tablet by mouth once daily. (Patient taking differently: Take 81 mg by mouth once daily. occasionally) B Complex Vitamins capsule Take 1 capsule by mouth once daily. FLUoxetine (PROZAC) 10 mg capsule Take 1 capsule by mouth once daily. levalbuterol tartrate HFA 45 mcg/actuation inhaler Inhale 1-2 Puffs as instructed every 4 hours as needed for wheezing/shortness of breath. methylPREDNISolone (MEDROL, BRIAN,) 4 mg Dose-Pack Follow dosing instructions, take with food. fluticasone propionate (FLOVENT DISKUS) 100 mcg/actuation inhaler Inhale 1 Puff as instructed twice daily. For cough hydrOXYzine HCl (ATARAX) 25 mg tablet Take 1 tablet by mouth every 6 hours as needed for anxiety. No current facility-administered medications for this visit. ALLERGIES Allergen Reactions Fluoxetine Other: See Comments Tremor SE Only with high doses such as 40 mg Seasonal Allergies Other: See Comments Sinuses Social History Tobacco Use Smoking status: Never Smokeless tobacco: Never Tobacco comments: Parents smoked in childhood home. Spouse non-smoker. Vaping Use Vaping Use: Never used Substance Use Topics Alcohol use: No Drug use: Not Currently Types: Marijuana ROS: See HPI PE: BP 122/80 Pulse 60 Temp (Src) 97.1 (Left Tympanic) Resp 20 Wt 161 lb (73.0kg) SpO2 98% Gen: AANDOX3, NAD, non-toxic appearing HEENT: PERRLA, EOMs intact b/l, nares without drainage, pharynx without erythema, exudate, lesions, or drainage. Uvula midline. MMM, EAC wnl, b/l TM with effusion present Neck: No LAD, no thyromegaly, no meningismus. CV: RRR, no murmur Lungs: coughing, dry, no distress, + scattered wheezing bases >apices Skin: No rashes, lesions, or wounds on exposed skin. ASSESSMENT/PLAN: 1. Acute bronchitis, unspecified organism - ICD9: 466.0, ICD10: J20.9 (primary diagnosis) - change albuterol to levalbuterol inhaler to avoid the jittery feeling. Add on Medrol dose pack, if symptoms of cough aren't resolved then she will start on Flovent inhaler as d/w her and granddaughter Anne today - LEVALBUTEROL HFA 45 MCG/ACTUATION AEROSOL INHALER - METHYLPREDNISOLONE 4 MG TABLETS IN A DOSE PACK - FLOVENT DISKUS 100 MCG/ACTUATION POWDER FOR INHALATION 2. Acute non-recurrent sinusitis, unspecified location - ICD9: 461.9, ICD10: J01.90 Supportive care, see above, no signs of current bacterial infection Singh Baez DO Return if no improvement. Follow up with Singh Baez DO. To ER if develops chest pain, shortness of breath, . Discussed risks, benefits, alternati (more content not included)... [facility] 03-17-2022 History of Present illness Narrative CC: Vanesa Ferguson is a 66 year old female who presents to the office for cough HPI: Cough, prolonged at >6 weeks. Was seen in urgent care 1 month ago and had CXR which was normal and was started on doxycycline medication. She states that her cough and ear pressure symptoms have continued since then, no hemoptysis or sputum production or further fevers or chills symptoms. Albuterol inhaler makes her feel very jittery so she avoids using it. Willing to try an alternative. States that this jittery feeling makes her anxious feeling. PAST MEDICAL HISTORY Diagnosis Date Amblyopia of eye, left Poor vision since childhood Carotid artery disease (HCC) 01/2015 20-39% ICA b/l Fibromyalgia Herniated disc, cervical Hyperlipidemia 06/21/2015 Hypertension Hypothyroid Lumbar herniated disc Marijuana use 08/09/2020 positive in tox screen 08/09/2020-do not prescribe controlled substances Ureteral stone 08/25/2019 PAST SURGICAL HISTORY Procedure Laterality Date APPENDECTOMY BREAST BIOPSY EYE MUSCLE SURG PROC UNLISTED HYSTERECTOMY HX Vaginal PAST SURGICAL HISTORY OF 1980 Right knee surgery REVISE MEDIAN N/CARPAL TUNNEL SURG Right 2010 right carpal tunnel release THROAT CULTURE lumps on vocal cords TUBAL LIGATION, Current Outpatient Medications Medication Sig traZODone (DESYREL) 50 mg tablet TAKE 1 TABLET AT BEDTIME benzonatate (TESSALON PERLES) 100 mg capsule Take 1 capsule by mouth three times daily as needed for cough. etodolac (LODINE) 400 mg tablet Take 1 tablet by mouth twice daily. traMADol (ULTRAM) 50 mg tablet Take 1 tablet by mouth twice daily as needed for pain. albuterol HFA (VENTOLIN HFA) 90 mcg/actuation inhaler Inhale 2 Puffs as instructed every 4 hours as needed for wheezing/shortness of breath. FLUOXETINE 10 mg tablet TAKE 1 TABLET ONCE DAILY. levothyroxine (SYNTHROID) 75 mcg tablet Take 1 tablet PO daily atenolol (TENORMIN) 50 mg tablet Take 1 tablet by mouth once daily. omeprazole (PRILOSEC) 20 mg capsule Take 1 capsule by mouth once daily for 28 days. terbinafine HCl (LAMISIL) 1 % cream Apply to affected area twice daily. aspirin, enteric coated (ASPIRIN, ENTERIC COATED) 81 mg EC tablet Take 1 tablet by mouth once daily. (Patient taking differently: Take 81 mg by mouth once daily. occasionally) B Complex Vitamins capsule Take 1 capsule by mouth once daily. FLUoxetine (PROZAC) 10 mg capsule Take 1 capsule by mouth once daily. levalbuterol tartrate HFA 45 mcg/actuation inhaler Inhale 1-2 Puffs as instructed every 4 hours as needed for wheezing/shortness of breath. methylPREDNISolone (MEDROL, BRIAN,) 4 mg Dose-Pack Follow dosing instructions, take with food. fluticasone propionate (FLOVENT DISKUS) 100 mcg/actuation inhaler Inhale 1 Puff as instructed twice daily. For cough hydrOXYzine HCl (ATARAX) 25 mg tablet Take 1 tablet by mouth every 6 hours as needed for anxiety. No current facility-administered medications for this visit. ALLERGIES Allergen Reactions Fluoxetine Other: See Comments Tremor SE Only with high doses such as 40 mg Seasonal Allergies Other: See Comments Sinuses Social History Tobacco Use Smoking status: Never Smokeless tobacco: Never Tobacco comments: Parents smoked in childhood home. Spouse non-smoker. Vaping Use Vaping Use: Never used Substance Use Topics Alcohol use: No Drug use: Not Currently Types: Marijuana ROS: See HPI PE: BP 122/80 Pulse 60 Temp (Src) 97.1 (Left Tympanic) Resp 20 Wt 161 lb (73.0kg) SpO2 98% Gen: A&OX3, NAD, non-toxic appearing HEENT: PERRLA, EOMs intact b/l, nares without drainage, pharynx without erythema, exudate, lesions, or drainage. Uvula midline. MMM, EAC wnl, b/l TM with effusion present Neck: No LAD, no thyromegaly, no meningismus. CV: RRR, no murmur Lungs: coughing, dry, no distress, + scattered wheezing bases >apices Skin: No rashes, lesions, or wounds on exposed skin. ASSESSMENT/PLAN: 1. Acute bronchitis, unspecified organism - ICD9: 466.0, ICD10: J20.9 (primary diagnosis) - change albuterol to levalbuterol inhaler to avoid the jittery feeling. Add on Medrol dose pack, if symptoms of cough aren't resolved then she will start on Flovent inhaler as d/w her and granddaughter Anne today - LEVALBUTEROL HFA 45 MCG/ACTUATION AEROSOL INHALER - METHYLPREDNISOLONE 4 MG TABLETS IN A DOSE PACK - FLOVENT DISKUS 100 MCG/ACTUATION POWDER FOR INHALATION 2. Acute non-recurrent sinusitis, unspecified location - ICD9: 461.9, ICD10: J01.90 Supportive care, see above, no signs of current bacterial infection Singh Baez DO Return if no improvement. Follow up with Singh Baez DO. To ER if develops chest pain, shortness of breath, . Discussed risks, benefits, alternatives, and potential side effects of medications. Patient/Guardian expressed understanding and agreed with the plan. See patient instructions. Singh Baez DO [address] [place] [address] documented in this encounter [facility] 02-17-2022 Miscellaneous Notes Patient phones requesting refills as follows: Requested Prescriptions Pending Prescriptions Disp Refills traZODone (DESYREL) 50 mg tablet [Pharmacy Med Name: TRAZODONE TAB 50MG] 90 tablet 1 Sig: TAKE 1 TABLET AT BEDTIME KRISTOPHER-11/18/21 Labs-11/12/21 NOV-none med filled 04/23/21 Please review and advise. Rhoda Smith LPN documented in this encounter [facility] 02-15-2022 Note HNO ID: [id number] Author: RT Christina(Kelsie) Service: Radiology Author Type: Technologist Type: Progress Notes Filed: 02/15/2022 11:33 AM Note Text: Radiology Service Progress Note PATIENT NAME: Vanesa Ferguson DATE OF SERVICE: February 15, 2022 TIME: 11:21 AM PATIENT IDENTITY VERIFICATION COMPLETED USING TWO (2) IDENTIFIERS: Name and Date of confirmed by patient verbally. FALL SCREENING: Has the patient had 2 falls in the last year or 1 fall with injury or currently using an Ambulatory Assistive Device (Walker, Cane, Wheelchair, Crutches, etc.)? No PATIENT GENDER DATA: Female. status: : No status: NO. PATIENT RELEVANT IMPLANT DATA REVIEWED: Yes RADIOLOGY DEPARTMENT: General X-ray: Exam(s) Completed: Chest X-Ray PERIPHERAL IV DATA: Not applicable SIGNED BY: RT Christina(R) February 15, 2022 11:21 AM [facility] 02-14-2022 Note HNO ID: [id number] Author: Viraj Plaza APRN.TRAFFIC LIEUTENANT Service: ? Author Type: Nurse Practitioner Type: Progress Notes Filed: 02/14/2022 7:25 PM Note Text: Subjective HPI Nontoxic-appearing female presents to urgent care with chief complaint of upper respiratory tract like infection. Duration of symptoms 3 weeks. Associated symptoms sore throat, nasal congestion, nasal discharge and nonproductive cough. Patient denies the use of any [id number] medications or home remedies for symptom management. Most bothersome symptom today is cough sinus pressure. Patient states recent sick contacts with similar signs and symptoms. Patient denies any productive cough, fever, chest pain, shortness of breath, pleuritic pain, hemoptysis, rash, abdominal pain, nausea, vomiting or change in bowel or bladder habit. .Patient presents with: Cough: Chest congestion, FLOWER, ear pain, St x3 weeks PAST MEDICAL HISTORY Diagnosis Date Amblyopia of eye, left Poor vision since childhood Carotid artery disease (HCC) 01/2015 20-39% ICA b/l Fibromyalgia Herniated disc, cervical Hyperlipidemia 06/21/2015 Hypertension Hypothyroid Lumbar herniated disc Marijuana use 08/09/2020 positive in tox screen 08/09/2020-do not prescribe controlled substances Ureteral stone 08/25/2019 PAST SURGICAL HISTORY Procedure Laterality Date APPENDECTOMY BREAST BIOPSY EYE MUSCLE SURG PROC UNLISTED HYSTERECTOMY HX Vaginal PAST SURGICAL HISTORY OF 1980 Right knee surgery REVISE MEDIAN N/CARPAL TUNNEL SURG Right 2011 right carpal tunnel release THROAT CULTURE lumps on vocal cords TUBAL LIGATION, ALLERGIES Fluoxetine and Seasonal Allergies MEDICATIONS etodolac (LODINE) 400 mg tablet Take 1 tablet by mouth twice daily. traMADol (ULTRAM) 50 mg tablet Take 1 tablet by mouth twice daily as needed for pain. FLUoxetine (PROZAC) 10 mg capsule Take 1 capsule by mouth once daily. albuterol HFA (VENTOLIN HFA) 90 mcg/actuation inhaler Inhale 2 Puffs as instructed every 4 hours as needed for wheezing/shortness of breath. FLUOXETINE 10 mg tablet TAKE 1 TABLET ONCE DAILY. traZODone (DESYREL) 50 mg tablet Take 1 tablet by mouth daily at bedtime. levothyroxine (SYNTHROID) 75 mcg tablet Take 1 tablet PO daily atenolol (TENORMIN) 50 mg tablet Take 1 tablet by mouth once daily. omeprazole (PRILOSEC) 20 mg capsule Take 1 capsule by mouth once daily for 28 days. terbinafine HCl (LAMISIL) 1 % cream Apply to affected area twice daily. hydrOXYzine HCl (ATARAX) 25 mg tablet Take 1 tablet by mouth every 6 hours as needed for anxiety. (Patient not taking: No sig reported) aspirin, enteric coated (ASPIRIN, ENTERIC COATED) 81 mg EC tablet Take 1 tablet by mouth once daily. (Patient taking differently: Take 81 mg by mouth once daily. occasionally) B Complex Vitamins capsule Take 1 capsule by mouth once daily. FAMILY HISTORY Problem Relation Age of Onset Cancer Father age 73. Lung, brain. Stroke Father Stroke Mother age 65 other (Liver) Mother Diabetes Maternal Grandmother Glaucoma No Family History Detached Retina No Family History Macular Degen No Family History Social History Tobacco Use Smoking status: Never Smokeless tobacco: Never Tobacco comments: Parents smoked in childhood home. Spouse non-smoker. Vaping Use Vaping Use: Never used Substance Use Topics Alcohol use: No Drug use: Not Currently Types: Marijuana BP 146/98 Pulse 70 Temp 36.8 ?C (98.2 ?F) Resp 20 Wt 72.9 kg (160 lb 12.8 oz) SpO2 98% BMI 29.41 kg/m? Review of Systems Constitutional: Negative for chills, fever and malaise/fatigue. HENT: Positive for congestion, sinus pain and sore throat. Negative for ear discharge and ear pain. Eyes: Negative for blurred vision, pain, discharge and redness. Respiratory: Positive for cough. Negative for hemoptysis, sputum production, shortness of breath, wheezing and stridor. Cardiovascular: Negative for chest pain. Gastrointestinal: Negative for abdominal pain, diarrhea, nausea and vomiting. Musculoskeletal: Negative for myalgias. Skin: Negative for itching and rash. Neurological: Positive for headaches. Negative for dizziness. Objective Physical Exam Constitutional: General: She is not in acute distress. Appearance: She is not diaphoretic. HENT: Head: Normocephalic. Jaw: No trismus or tenderness. Nose: Congestion present. Right Sinus: Maxillary sinus tenderness present. Left Sinus: Maxillary sinus tenderness present. Mouth/Throat: Mouth: Mucous membranes are moist. Pharynx: Oropharynx is clear. No oropharyngeal exudate or posterior oropharyngeal erythema. Eyes: Conjunctiva/sclera: Conjunctivae normal. Pupils: Pupils are equal, round, and reactive to light. Cardiovascular: Rate and Rhythm: Normal rate and regular rhythm. Heart sounds: Normal heart sounds. Pulmonary: Effort: Pulmonary effort is normal. No ta (more content not included)... [facility] 12-16-2021 History of Present illness Narrative Associated Order(s): Large Joint Arthro/Inj: L glenohumeral Post-Procedure Diagnose(s): Chronic left shoulder pain; Primary osteoarthritis of left shoulder Ezio Pitno MD Department of Orthopaedics Orthopaedics [address] [facility] [address] Dept: [phone] Dept December 16, [address] Singh Baez DO for an opinion regarding Left shoulder pain. My final recommendations will be communicated back to the requesting physician by way of shared Medical record or letter to requesting physician via US mail. CHIEF COMPLAINT: New and Pain of the Left Shoulder HPI Patient is here today for left shoulder pain that has been ongoing for almost a year. 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 Patient has been going to massage therapist, as well as taking pain medication and icing. Xrays taken 09/26/21 and MRI 12/09/21. 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 She may have some of that radiculopathy pattern, however a bit of arthritis in the shoulder along with tendinitis. We will try an anti-inflammatory which should help multiple issues including her knee discomfort as well. She would like to try cortisone injection for the shoulder in addition. FOLLOW UP INSTRUCTIONS: As needed Ms. Vanesa Ferguson was advised as to contrast therapies and/or to take analgesics/anti-inflammatories as needed and all contraindications were reviewed. OBJECTIVE: Ms. Vanesa Ferguson is a pleasant 66 year old in no apparent distress. Gen:There were no vitals taken for this visit. nl development, non obese, no deformities ENT: Normocephalic, normal hearing, moist mucosa CV: Pulses:Radial= 2+ and symmetric, capillary refill < 2 secs, no peripheral edema/varicosities Skin: no rash, bruising or lesions. Good turgor. Psych: cooperative and appropriate, alert and oriented x 3, good mood and affect. Musculoskeletal: Mild limitation with Supple range of motion of the cervical spine without pain. Spurling signs are equivocal to the left. No atrophy of the deltoid and shoulder musculature. Left shoulder is nontender to palpation over the SC joint, clavicle and AC joint. No tenderness to palpation over the posterior shoulder, mild tenderness over the anterior lateral corner of the shoulder and greater tuberosity. Nonpainful at the bicipital groove and some discomfort on palpation of the anterior joint. Active range of motion is 160 of forward elevation, 40 external rotation, and internal rotation to the upper lumbar spine. Passive range of motion is symmetrical, limited by pain, respectively. No laxity with anterior and posterior stress. Mildly positive Neer and Cadena impingement signs. 4/5 strength with supraspinatus, infraspinatus and subscapularis. Sensation is intact in the axillary, radial, median and ulnar nerve distribution Large Joint Arthro/Inj: L glenohumeral Informed Consent Consent Obtained: Verbal [place] Protocol A moment to CARE was completed. SIGN IN Personnel directly involved with the procedure wore the appropriate PPE. Special Equipment: N/A Patient/Surrogate Stated/Verified: Patient name, Date of , Relevant allergies and Intended procedure TIME OUT Intended patient and procedure match the source document(s). Consent documented and matches the intended procedure. Relevant labs, photos, and/or imaging studies have been reviewed. Correct side/site marked and visible. Medications required for procedure verified. No fire risk assessment and interventions applicable. No implant(s) inserted. 12/16/2021 11:41 AM The procedure site was prepped in the usual sterile fashion. Site: L glenohumeral Medications: 6 mg betamethasone acetate-betamethasone sodium phosphate 6 mg/mL Anesthetics: 4 mL lidocaine (PF) 10 mg/mL (1 %) Outcome: Tolerated well, no immediate complications Post-injection instructions were reviewed with the patient and the patient voiced understanding of these instructions. SIGN OUT No specimen collected. All instruments, equipment, possible retained foreign bodies accounted for. Post-procedure follow-up management communicated and Plan of Care Visit completed when applicable IMAGING: IMPRESSION: Marked rotator cuff tendinosis with prominent interstitial fluid. Subacromial subdeltoid bursitis. Mild tendinosis of the long head of the biceps tendon. Severe glenohumeral joint osteoarthritis. Mild capsulitis in the rotator interval. 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 TECHNIQUE: Routine non-contrast MRI of the shoulder. MQ: [id number] COMPARISON: Left shoulder radiographs 09/26/2021 RESULT: TENDONS: Rotator cuff tendons: -Supraspinatus: Intact with marked tendinosis with prominent interstitial increased T2 signal extending throughout most of the width of the tendon but without clear articular or bursal sided communication. -Infraspinatus: Intact with moderate tendinosis -Subscapularis: Intact with mild tendinosis -Teres Minor: Intact tendon Biceps (Long head) Tendon: Mild tendinosis at the intra-articular portion with normal course MUSCLES: Rotator cuff muscles: -Supraspinatus: Preserved bulk and no fatty changes. -Infraspinatus: Preserved bulk and no fatty changes. -Subscapularis: Preserved bulk and no fatty changes. -Teres Minor: Preserved bulk and no fatty changes. Other muscles: Preserved signal and bulk in the deltoid. JOINTS: Glenohumeral Joint: -Labrum: Degeneration without discrete tear -Cartilage: Large area(s) of full thickness cartilage loss/fissuring particularly on the humeral head. -Joint Fluid: Small effusion . Mild synovitis. Mild edema in the rotator interval capsule. Acromioclavicular Joint: Mild to moderate hypertrophic degenerative changes BONES AND MARROW: No evidence of fracture or suspicious bone marrow replacing process . Reactive subcortical cystic changes at the greater tuberosity. OTHER: Subdeltoid/Subacromial Bursa: Moderate bursal distention Other: No other significant findings. Localizer images: Unremarkable. Supporting Subjective Information Below: Past Medical History: PAST MEDICAL HISTORY Diagnosis Date Amblyopia of eye, left Poor vision since childhood Carotid artery disease (HCC) 01/2015 20-39% ICA b/l Fibromyalgia Herniated disc, cervical Hyperlipidemia 06/21/2015 Hypertension Hypothyroid Lumbar herniated disc Marijuana use 08/09/2020 positive in tox screen 08/09/2020-do not prescribe controlled substances Ureteral stone 08/25/2019 Past Surgical History: PAST SURGICAL HISTORY Procedure Laterality Date APPENDECTOMY BREAST BIOPSY EYE MUSCLE SURG PROC UNLISTED HYSTERECTOMY HX Vaginal PAST SURGICAL HISTORY OF 1980 Right knee surgery REVISE MEDIAN N/CARPAL TUNNEL SURG Right 2010 right carpal tunnel release THROAT CULTURE lumps on vocal cords TUBAL LIGATION, Family History: FAMILY HISTORY Problem Relation Age of Onset Cancer Father age 73. Lung, brain. Stroke Father Stroke Mother age 65 other (Liver) Mother Diabetes Maternal Grandmother Glaucoma No Family History Detached Retina No Family History Macular Degen No Family History Social History: Social History Tobacco Use Smoking status: Never Smokeless tobacco: Never Tobacco comments: Parents smoked in childhood home. Spouse non-smoker. Vaping Use Vaping Use: Never used Substance Use Topics Alcohol use: No Drug use: Not Currently Types: Marijuana Medications: Current Outpatient Medications Medication Sig traMADol (ULTRAM) 50 mg tablet Take 1 tablet by mouth twice daily as needed for pain. ALPRAZolam (XANAX) 0.5 mg tablet Take 0.5-1 tablets by mouth twice daily as needed for anxiety for up to 30 days. Take 1/2 (0.25mg) to 1 full tablet by mouth three times daily as needed for anxiety. meloxicam (MOBIC) 15 mg tablet Take 1 tablet by mouth once daily. for pain. Take with food. albuterol HFA (VENTOLIN HFA) 90 mcg/actuation inhaler Inhale 2 Puffs as instructed every 4 hours as needed for wheezing/shortness of breath. FLUOXETINE 10 mg tablet TAKE 1 TABLET ONCE DAILY. traZODone (DESYREL) 50 mg tablet Take 1 tablet by mouth daily at bedtime. levothyroxine (SYNTHROID) 75 mcg tablet Take 1 tablet PO daily atenolol (TENORMIN) 50 mg tablet Take 1 tablet by mouth once daily. omeprazole (PRILOSEC) 20 mg capsule Take 1 capsule by mouth once daily for 28 days. terbinafine HCl (LAMISIL) 1 % cream Apply to affected area twice daily. aspirin, enteric coated (ASPIRIN, ENTERIC COATED) 81 mg EC tablet Take 1 tablet by mouth once daily. (Patient taking differently: Take 81 mg by mouth once daily. occasionally) B Complex Vitamins capsule Take 1 capsule by mouth once daily. FLUoxetine (PROZAC) 10 mg capsule Take 1 capsule by mouth once daily. hydrOXYzine HCl (ATARAX) 25 mg tablet Take 1 tablet by mouth every 6 hours as needed for anxiety. (Patient not taking: No sig reported) No current facility-administered medications for this visit. Allergies: Fluoxetine and Seasonal Allergies ROS: General (negative for fatigue, malaise, weight loss/gain) HEENT (negative for headache, earache, recent vision changes, sinus pain, sore throat) Respiratory (no recent shortness of breath, hemoptysis) CV (negative for chest tightness, palpitations) Musculoskeletal (see HPI) Psych (no depression, anxiety) REFERRING PHYSICIAN: Ms. Vanesa Ferguson was referred to me for consultation by the following physician. This consultation note will be sent to the following physician by either mail or electronic medical record. Singh Baez [address] [facility] [address] Singh Baez DO [address] [facility] [address] Ezio Pinto MD documented in this encounter [facility] 12-11-2021 Miscellaneous Notes Pt. informed. Please inform patient that her MRI of the shoulder shows IMPRESSION: Marked rotator cuff tendinosis with prominent interstitial fluid. Subacromial subdeltoid bursitis. Mild tendinosis of the long head of the biceps tendon. Severe glenohumeral joint osteoarthritis. Mild capsulitis in the rotator interval. She needs to follow up with orthopedic surgeon as scheduled Singh Baez DO documented in this encounter [facility] 12-09-2021 History of Present illness Narrative Radiology Service Progress Note PATIENT NAME: Vanesa Ferguson DATE OF SERVICE: December 09, 2021 TIME: 8:16 AM PATIENT IDENTITY VERIFICATION COMPLETED USING TWO (2) IDENTIFIERS: Name and Date of confirmed by patient verbally. FALL SCREENING: Has the patient had 2 falls in the last year or 1 fall with injury or currently using an Ambulatory Assistive Device (Walker, Cane, Wheelchair, Crutches, etc.)? No PATIENT GENDER DATA: Female. status: : No status: NO. PATIENT RELEVANT IMPLANT DATA REVIEWED: Yes RADIOLOGY DEPARTMENT: MR; Exam(s) Completed: Upper MSK: Shoulder, left PERIPHERAL IV DATA: Not applicable SIGNED BY: RT Kaylee(Kelsie) December 09, 2021 8:16 AM documented in this encounter [facility] 12-06-2021 Miscellaneous Notes Told patient results of breast radiographs. Radiologist recommended follow up in 6 months, this can be done concurrent to her yearly screening - therefore in April 2022. Patient can return to her PCP for follow up. documented in this encounter [facility] 12-05-2021 Miscellaneous Notes Called and spoke with pharmacist Lasha at [facility] and clarified xanax order. Al read back order. Any Styles RN Take 0.5-1 tablet PO twice a day as needed for anxiety for her Alprazolam rx Please call pharmacy Singh Baez DO Maria Elena from [facility] calls and wants clarification on Alprazolam order. There is two directions on order. Does provider want medication to be taken PRN 2 times a day or 3 times a day. Reference number: [id number] Please review and advise, Any Styles RN documented in this encounter [facility] 12-04-2021 Miscellaneous Notes [facility] [address] [place] [id number] December 04, 2021 PID: [id number] Vanesa WesLamar Ferguson [address] [place] [address] Dear Ms. Ferguson, Your recent breast imaging examination performed on 12/04/2021 showed an area that we believe is probably benign (not cancer). A six month follow-up is recommended to ensure your breast health. Please call [phone] to make an appointment for these tests if you have not already done so. You must have an order/prescription from your physician when calling to schedule your appointment. If your order/prescription is not electronic, you must bring the hard copy with you on the day of your exam to avoid delays. Early detection of cancer is very important. We also understand recommendations regarding breast cancer screening are controversial. Please discuss with your primary care provider which strategy is best for you and whether a mammogram is right for you. Your imaging studies and report will be kept on file at [facility] as part of your permanent medical record and are available for your continuing care. Thank you for allowing us to help in meeting your health care needs. Sincerely, Dr. Mireles Interpreting Radiologist [facility] (# mo Follow-up) documented in this encounter [facility] 11-28-2021 Miscellaneous Notes Pt notified of such. The following approved medication requests have been transmitted electronically. Requested Prescriptions Signed Prescriptions Disp Refills traMADol (ULTRAM) 50 mg tablet 30 tablet 1 Sig: Take 1 tablet by mouth twice daily as needed for pain. Authorizing Provider: SINGH BAEZ ALPRAZolam (XANAX) 0.5 mg tablet 30 tablet 1 Sig: Take 0.5-1 tablets by mouth twice daily as needed for anxiety for up to 30 days. Take 1/2 (0.25mg) to 1 full tablet by mouth three times daily as needed for anxiety. Authorizing Provider: SINGH BAEZ DO Patient calls and states that at appointment on 11/18/2021 provider had discussed with patient giving her a prescription for tramadol and alprazolam. Patient asking if this can be sent to [facility]? 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 Decreased ROM with it, unable to lift it above half way. Pain radiates across back and down arm occasionally. It is constant and is a dull ache. Has tried some OTC treatments without much relief. Had left over tramadol that did help discomfort. Hx of cervical heridated discs and numerous neck issues. Most recent cervical x-ray in 2019- - DEGENERATIVE DISC DISEASE UNCHANGED FROM THE THE PREVIOUS EXAM.HOWEVER UNCOVERTEBRAL OSTEOPHYTES AND INCREASED Right knee pain, months of symptoms, no known injuries. Worse with prolonged walking or changing positions such as sitting to standing or up or down steps. No swelling. No skin changes. No use of ice or heating pad or brace. PAST MEDICAL HISTORY Diagnosis Date Amblyopia of eye, left Poor vision since childhood Carotid artery disease (HCC) 01/2015 20-39% ICA b/l Fibromyalgia Herniated disc, cervical Hyperlipidemia 06/21/2015 Hypertension Hypothyroid Lumbar herniated disc Marijuana use 08/09/2020 positive in tox screen 08/09/2020-do not prescribe controlled substances Ureteral stone 08/25/2019 PAST SURGICAL HISTORY Procedure Laterality Date APPENDECTOMY BREAST BIOPSY EYE MUSCLE SURG PROC UNLISTED HYSTERECTOMY HX Vaginal PAST SURGICAL HISTORY OF 1980 Right knee surgery REVISE MEDIAN N/CARPAL TUNNEL SURG Right 2010 right carpal tunnel release THROAT CULTURE lumps on vocal cords TUBAL LIGATION, Current Outpatient Medications Medication Sig meloxicam (MOBIC) 15 mg tablet Take 1 tablet by mouth once daily. for pain. Take with food. albuterol HFA (VENTOLIN HFA) 90 mcg/actuation inhaler Inhale 2 Puffs as instructed every 4 hours as needed for wheezing/shortness of breath. FLUOXETINE 10 mg tablet TAKE 1 TABLET ONCE DAILY. traZODone (DESYREL) 50 mg tablet Take 1 tablet by mouth daily at bedtime. levothyroxine (SYNTHROID) 75 mcg tablet Take 1 tablet PO daily atenolol (TENORMIN) 50 mg tablet Take 1 tablet by mouth once daily. terbinafine HCl (LAMISIL) 1 % cream Apply to affected area twice daily. aspirin, enteric coated (ASPIRIN, ENTERIC COATED) 81 mg EC tablet Take 1 tablet by mouth once daily. (Patient taking differently: Take 81 mg by mouth once daily. occasionally) B Complex Vitamins capsule Take 1 capsule by mouth once daily. FLUoxetine (PROZAC) 10 mg capsule Take 1 capsule by mouth once daily. omeprazole (PRILOSEC) 20 mg capsule Take 1 capsule by mouth once daily for 28 days. hydrOXYzine HCl (ATARAX) 25 mg tablet Take 1 tablet by mouth every 6 hours as needed for anxiety. (Patient not taking: No sig reported) No current facility-administered medications for this visit. ALLERGIES Allergen Reactions Fluoxetine Other: See Comments Tremor SE Only with high doses such as 40 mg Seasonal Allergies Other: See Comments Sinuses Social History Tobacco Use Smoking status: Never Smokeless tobacco: Never Tobacco comments: Parents smoked in childhood home. Spouse non-smoker. Vaping Use Vaping Use: Never used Substance Use Topics Alcohol use: No Drug use: Yes Types: Marijuana ROS: See HPI PE: BP 134/78 Pulse 66 Resp 20 Wt 155 lb (70.3kg) Gen: A&OX3, NAD, non-toxic appearing HEENT: PERRLA, EOMs intact b/l, nares without drainage, pharynx without erythema, exudate, lesions, or drainage. Uvula midline. Neck: No LAD, no thyromegaly, no meningismus. CV: RRR, no murmur Lungs: CTA b/l, no wheezing Skin: No rashes, lesions, or wounds on exposed skin. Right knee with trace effusion present and medial>lateral joint line TTP, no signs of instability Left shoulder pain, decreased abduction ROM, weakness with abduction past 75 degrees, decreased internal and external rotation. + signs of impingement ASSESSMENT/PLAN: 1. Chronic left shoulder pain - ICD9: 719.41, 338.29, ICD10: M25.512, G89.29 (primary diagnosis) Concerns for tear of rotator cuff vs. Impingement syndrome vs. Labral tear. Need for MRI left shoulder and orthopedics follow up as well. - CONSULT TO PHYSICAL THERAPY - CONSULT TO ORTHOPAEDICS - MRI SHOULDER WO IVCON LT 2. Instability of left shoulder joint - ICD9: 718.81, ICD10: M25.312 Concerns for tear of rotator cuff vs. Impingement syndrome vs. Labral tear. Need for MRI left shoulder and orthopedics follow up as well. - CONSULT TO PHYSICAL THERAPY - CONSULT TO ORTHOPAEDICS - MRI SHOULDER WO IVCON LT 3. Right knee pain, unspecified chronicity - ICD9: 719.46, ICD10: M25.561 Concerns for OA, start on icing routine and topical NSAID voltaren, f/u with Orthopedics for opinion. - CONSULT TO ORTHOPAEDICS - XR KNEE GENERAL 4V AP BOTH/PA BOTH/LAT/MERC RIGHT Singh Baez DO Return if no improvement. Follow up with Singh Baez DO. To ER if develops chest pain, shortness of breath. Discussed risks, benefits, alternatives, and potential side effects of medications. Patient/Guardian expressed understanding and agreed with the plan. See patient instructions. Singh Baez DO [address] [place] [address] documented in this encounter [facility] 11-13-2021 Miscellaneous Notes Called client services yes these will be added. Spoke with pt gave information provided. Pt voices understanding. Please see if T3 and T4 blood work can be added to blood work drawn yesterday -- due to elevated TSH on resulted blood work. Please let patient know that overall blood work looks good. TSH is elevated. We are trying to add on blood work to look into thyroid levels further with T3 and T4 blood work. Likely, synthroid dosage will need to be increased but this can be discussed in greater detail at upcoming appointment. Thank you, Maryellen Riggs APRN.TRAFFIC LIEUTENANT documented in this encounter [facility] 11-05-2021 History of Present illness Narrative I reviewed this patient's outside mammogram and ultrasound. There is a subtle mammographic asymmetry in the upper inner quadrant (very subtle distotion on mammo) with US correlate seen at 12:00 1cmFN. The US finding is subtle. I recommend repeat US to determine if the finding is real and correlates with the mammogram and if so, would then recommend biopsy, as is currently recommended. documented in this encounter [facility] 10-22-2021 History of Present illness Narrative Radiology Service Progress Note PATIENT NAME: Vanesa Ferguson DATE OF SERVICE: October 22, 2021 TIME: 12:10 PM PATIENT IDENTITY VERIFICATION COMPLETED USING TWO (2) IDENTIFIERS: Name and Date of confirmed by patient verbally. FALL SCREENING: Has the patient had 2 falls in the last year or 1 fall with injury or currently using an Ambulatory Assistive Device (Walker, Cane, Wheelchair, Crutches, etc.)? No PATIENT GENDER DATA: Female. status: : No status: NO. PATIENT RELEVANT IMPLANT DATA REVIEWED: Not Applicable RADIOLOGY DEPARTMENT: Ultrasound PERIPHERAL IV DATA: Not applicable SIGNED BY: Sonya Prieto RDMS RVT October 22, 2021 12:10 PM documented in this encounter [facility] 10-22-2021 History of Present illness Narrative Radiology Service Progress Note PATIENT NAME: Vanesa Ferguson DATE OF SERVICE: October 22, 2021 TIME: 11:34 AM PATIENT IDENTITY VERIFICATION COMPLETED USING TWO (2) IDENTIFIERS: Name and Date of confirmed by patient verbally. FALL SCREENING: Has the patient had 2 falls in the last year or 1 fall with injury or currently using an Ambulatory Assistive Device (Walker, Cane, Wheelchair, Crutches, etc.)? No PATIENT GENDER DATA: Female. status: : No status: NO. PATIENT RELEVANT IMPLANT DATA REVIEWED: Not Applicable RADIOLOGY DEPARTMENT: Mammography PERIPHERAL IV DATA: Not applicable SIGNED BY: RT Angeline(Kelsie) October 22, 2021 11:34 AM documented in this encounter [facility] 10-03-2021 Miscellaneous Notes Images from the original note were not included. PA approved Deidre Avelar Ma Prior Authorization has been completed online at [employer] for cyclobenzaprine, will await response. [id number] Please keep encounter open until final decision has been received and documented from insurance company. Deidre Avelar MA documented in this encounter [facility] 10-02-2021 Miscellaneous Notes Pt called and notified, verbalized understanding. Already made aware of XR results via [employer] on 09/27 by RSLamar Alexandra Ma OK to trial muscle relaxant at bedtime. Rx sent to pharmacy. Please let patient know. Thank you, Maryellen Riggs APRN.CNP The following approved medication requests have been transmitted electronically. Requested Prescriptions Signed Prescriptions Disp Refills cyclobenzaprine (FLEXERIL) 10 mg tablet 30 tablet 0 Sig: Take 1 tablet by mouth three times daily as needed for muscle spasm. Authorizing Provider: MARYELLEN RIGGS APRN.CNP Call to pt and notified her of message below. Notes she's having improvement but has to watch her move. Wonders if muscle relaxer would help her at night due to when moving it bothers her. Uses [facility] [place]. Pt had XR's completed on 09/27/21. Please review. Pt made aware she would be receiving a call back. Dina Alexandra Ma We had discussed at appointment about rx for tramadol instead of muscle relaxant as patient thought tramadol would help pain better. If symptoms do not improve in 3-5 days with tramadol, please let us know and we can consider additional medication regimen. Also, please look into why x-ray of shoulder and cervical spine were cancelled from yesterday? Thank you, Maryellen Riggs APRN.CNP Patient calling to ask if muscle relaxant medication has been ordered as discussed at OV yesterday? Advised patient did not see order for medication. If script sent, [facility] pharmacy. Yenifer Vega RN documented in this encounter [facility] 09-25-2021 Miscellaneous Notes Addressed at appointment. Maryellen Riggs APRN.CNP Patient calling to request appt with provider due to left shoulder pain that she has been experiencing since of last year. 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 Notes decreased ROM with it-unable to lift it all the way. She has missed a couple of appts with Dr. Baez and has not been able to have it further evaluated. She states the pain goes from her left shoulder to her hand. It is constant and is a dull ache. Sometimes radiates into her neck but not now. Has tried some OTC treatments without much relief. Denies any other symptoms. Appt made with Maryellen Riggs for 6:40pm today due to her work schedule. Please call patient if provider has other recommendations. Thank you. documented in this encounter [facility] 07-06-2021 Miscellaneous Notes Pt informed, verbalized understanding. Vivienne Prather Ma I am concerned that she sounds like she is fluid overloaded/fluid retaining. Would recommend that she cuts all salt out of her diet and elevate her legs as much as able. Would recommend that she is assessed in the office if symptoms worsen or don't resolve. Singh Baez DO Patient calls and reports that pain and swelling is to bilateral feet and ankles. Patient denies any redness or warmth to either foot/ankle/leg. Symptoms have been present for about 2 months and current pain rating is 5/10. Patient reports that at night time and with ambulation pain radiates from the feet to the knees but denies calf pain, swelling, redness, or warmth. Denies chest pain, shortness of breath, numbness, or injury to bilateral feet. Patient reports she takes meloxicam at bedtime to help with the pain. Offered to schedule appointment d/t pain not localized to just feet/ankles. Patient wanting provider recommendation prior to appointment scheduled. Massiel Gilman RN Called and left a voicemail for the Patient to call back and ask for a nurse to receive the providers message. Anh Zaman RN Please call and clarify symptoms, any leg swelling? Any skin redness? Any calf pain? Any signs of a blood clot? Singh Baez DO Patient called in complaining of a lot of ankle and foot pain (/10) and wanting to see a armoured car escort. She states she is in excruciating pain whenever she stands and that it radiates up her legs when she is laying at night. Please advise/assist. Any Gresham documented in this encounter [facility] 06-17-2021 History of Present illness Narrative RADIOLOGY SERVICE PROGRESS NOTE SERVICE DATE: 06/17/2021 SERVICE TIME: 814 PATIENT IDENTITY VERIFICATION COMPLETED USING TWO (2) METHODS: Patient confirmed name and Date of verbally. ALLERGIES REVIEWED: TRAY MEDICATIONS REVIEWED BY: TRAY PROCEDURE TYPE: NM STRESS: 0.4 mg of Lexiscan was administered IV at 0824 over 10 Seconds by Allen Spaulding RN Reversal agent used:NA LOT [id number] EXP 05/10/24 IV SITE: IV palced by nuclear tecnologist POST EXAM PIV STATUS: Discontinued by Painting Supervisor PATIENT DISCHARGED TO: Nuclear Medicine Department for post stress imaging A Diagnostic radioactive procedure has taken place, with no further precautions necessary other than routine body substance precautions. More information regarding radiation safety can be found using this link: [email or web address] [email or web address] SIGNATURE: ALLEN SPAULDING RN PATIENT NAME: Vanesa Ferguson DATE: 06/17/21 TIME: 10:38 AM documented in this encounter [facility] 06-17-2021 History of Present illness Narrative RADIOLOGY SERVICE PROGRESS NOTE SERVICE DATE: 06/17/2021 SERVICE TIME: 07:02 AM PATIENT IDENTITY VERIFICATION COMPLETED USING TWO (2) STANDARD IDENTIFIERS: Name and Date of confirmed by patient verbally FALL SCREENING: Has the patient had 2 falls in the last year or 1 fall with injury or currently using an Ambulatory Assistive Device (Walker, Cane, Wheelchair, Crutches, etc.)? No PATIENT GENDER DATA: .female : No status: No ALLERGIES: Reviewed and unchanged MEDICATIONS REVIEWED: No PATIENT RELEVANT IMPLANT DATA REVIEWED: Not Applicable CREATININE: Creatinine Date Value Ref Range Status 04/23/2021 0.82 0.58 - 0.96 mg/dL Final 02/25/2021 0.73 0.58 - 0.96 mg/dL Final 07/20/2020 0.84 0.58 - 0.96 mg/dL Final Estimated Glomerular Filtration Rate Date Value Ref Range Status 04/23/2021 79 >=60 mL/min/1.73m Final Comment: Estimated Glomerular Filtration Rate (eGFR) is calculated using the 2020 CKD-EPI creatinine equation. This equation utilizes serum creatinine, sex, and age as parameters. The creatinine assay has traceable calibration to isotope dilution-mass spectrometry. Refer to KDIGO guidelines for clinical interpretation. In patients with unstable renal function, e.g. those with acute kidney injury, the eGFR may not accurately reflect actual GFR. eGFR- Date Value Ref Range Status 02/25/2021 >60 Final P.O.C.T. RESULTS: N/A June 17, [address] PERFORMED: No IV SITE: Ambulatory: A peripheral IV was started in the Right antecubital site with a Angio cath: 22 gauge. POST EXAM PIV STATUS: Discontinued PROCEDURE TYPE: NM Stress: 12.7mCi [id number] was administered IV for Rest Imaging at 07:25 by zarina Cruz. 33.7 mCi [id number] was administered IV for Stress Imaging at 08:24 by zarina Cruz. ADMINISTRATION TIME: PATIENT DISCHARGED TO: Ambulatory patient, left NM department area. A Diagnostic radioactive procedure has taken place, with no further precautions necessary other than routine body substance precautions. More information regarding radiation safety can be found using this link: [email or web address] [email or web address] SIGNATURE: RT Nancy(R) PATIENT NAME: Vanesa Ferguson DATE: June 17, 2021 TIME: 9:45 AM PAGER/CONTACT #: documented in this encounter [facility] 06-06-2021 Miscellaneous Notes The following approved medication requests have been transmitted electronically. Signed Prescriptions Disp Refills FLUoxetine (PROZAC) 10 mg capsule 90 capsule 0 Sig: Take 1 capsule by mouth once daily. Authorizing Provider: MARYELLEN RIGGS APRN.CECILIA In review it looks like the tablets are not covered. Called pt and all reviewed. She is ok with changing this to the capsule. She would still like the rx to the mail away pharmacy. She notes she can not take a high dose for fluoxetine as in 40 mg. She has tried and did not like the way it made her feel. Remove from allergy list? Vanesa Ferguson is calling Singh Baez, DO today the following was never released to her Pharmacy. She wants to know if a prior authorization can be completed? Please notify patient either way. She only has 3 pills left. Disp Refills Start End FLUOXETINE 10 mg tablet 90 tablet 1 04/24/2021 Sig: TAKE 1 TABLET ONCE DAILY. Sent to pharmacy as: FLUOXETINE 10 mg tablet Class: Normal Order: [id number] E-Prescribing Status: Receipt confirmed by pharmacy (04/24/2021 3:28 PM EDT) Prior authorization: Denied Patient has been identified by name and birthdate. Duration of symptoms: N/A Person calling: self Call patient at: on cell [phone] (home) [phone] (work) [phone] (cell) Was an appointment scheduled: No Closing statement: Prior Authorization Calls: Thank you for calling [facility], your call will be returned within the next 24 hours or next business day. Alyssa Morales documented in this encounter [facility] 05-23-2021 Miscellaneous Notes Kathie with [facility] called and is notified of providers message and instructions. She voices understanding. Anh Zaman RN We can dispense one 18g inhaler, with 5 refills please. Usha Taylor APRN.CECILIA Alisa with [facility] called stating the Albuterol HFA inhaler comes in 18 g only and needs to know how many you wanted dispensed and refills. This is on hold till they hear back and it is due to go out. Ref# [id number]. Please advise. Aye Santiago LPN documented in this encounter [facility] 05-17-2021 Miscellaneous Notes Patient also requested a refill of her HFA inhaler, but [facility] won't allow me to submit the request. Patient has been identified by name and date of : Yes Pending Prescriptions Disp Refills MELOXICAM 15 MG TABLET 90 tablet 3 Sig: Take 1 tablet by mouth once daily. for pain. Take with food. TRACEY: No RX INSTRUCTIONS: Patient aware RX will be sent to pharmacy. No need to notify patient. Itzel Morales' documented in this encounter [facility] documented as of this encounter (statuses as of 05/17/2021) [facility] History of Past illness Narrative* Problem Noted Date Resolved Date Cannabis abuse 08/09/2020 08/09/2020 documented as of this encounter (statuses as of 05/23/2021) [address]01-2021 History of Past illness Narrative* Problem Noted Date Resolved Date Cannabis abuse 08/09/2020 08/09/2020 documented as of this encounter (statuses as of 06/06/2021) [address]01-2021 History of Past illness Narrative* Problem Noted Date Resolved Date Cannabis abuse 08/09/2020 08/09/2020 documented as of this encounter (statuses as of 06/17/2021) [facility] History of Past illness Narrative* Problem Noted Date Resolved Date Cannabis abuse 08/09/2020 08/09/2020 documented as of this encounter (statuses as of 06/18/2021) [facility] History of Past illness Narrative* Problem Noted Date Resolved Date Cannabis abuse 08/09/2020 08/09/2020 documented as of this encounter (statuses as of 06/25/2021) [address]21 History of Past illness Narrative* Problem Noted Date Resolved Date Cannabis abuse 08/09/2020 08/09/2020 documented as of this encounter (statuses as of 07/09/2021) [facility] History of Past illness Narrative* Problem Noted Date Resolved Date Cannabis abuse 08/09/2020 08/09/2020 documented as of this encounter (statuses as of 09/25/2021) [address]21 History of Past illness Narrative* Problem Noted Date Resolved Date Cannabis abuse 08/09/2020 08/09/2020 documented as of this encounter (statuses as of 10/02/2021) [facility] History of Past illness Narrative* Problem Noted Date Resolved Date Cannabis abuse 08/09/2020 08/09/2020 documented as of this encounter (statuses as of 10/03/2021) [address]21 History of Past illness Narrative* Problem Noted Date Resolved Date Cannabis abuse 08/09/2020 08/09/2020 documented as of this encounter (statuses as of 10/23/2021) [address]21 History of Past illness Narrative* Problem Noted Date Resolved Date Cannabis abuse 08/09/2020 08/09/2020 documented as of this encounter (statuses as of 10/23/2021) [facility] History of Past illness Narrative* Problem Noted Date Resolved Date Cannabis abuse 08/09/2020 08/09/2020 documented as of this encounter (statuses as of 11/05/2021) [facility] History of Past illness Narrative* Problem Noted Date Resolved Date Cannabis abuse 08/09/2020 08/09/2020 documented as of this encounter (statuses as of 11/08/2021) [facility] History of Past illness Narrative* Problem Noted Date Resolved Date Cannabis abuse 08/09/2020 08/09/2020 documented as of this encounter (statuses as of 11/13/2021) [facility] History of Past illness Narrative* Problem Noted Date Resolved Date Cannabis abuse 08/09/2020 08/09/2020 documented as of this encounter (statuses as of 11/21/2021) [facility] History of Past illness Narrative* Problem Noted Date Resolved Date Cannabis abuse 08/09/2020 08/09/2020 documented as of this encounter (statuses as of 11/28/2021) [facility] History of Past illness Narrative* Problem Noted Date Resolved Date Cannabis abuse 08/09/2020 08/09/2020 documented as of this encounter (statuses as of 12/05/2021) [address]01-[address]21 History of Past illness Narrative* Problem Noted Date Resolved Date Cannabis abuse 08/09/2020 08/09/2020 documented as of this encounter (statuses as of 12/05/2021) [address]01-2021 History of Past illness Narrative* Problem Noted Date Resolved Date Cannabis abuse 08/09/2020 08/09/2020 documented as of this encounter (statuses as of 12/05/2021) [address]01-2021 History of Past illness Narrative* Problem Noted Date Resolved Date Cannabis abuse 08/09/2020 08/09/2020 documented as of this encounter (statuses as of 12/06/2021) [address]01-2021 History of Past illness Narrative* Problem Noted Date Resolved Date Cannabis abuse 08/09/2020 08/09/2020 documented as of this encounter (statuses as of 12/06/2021) [address]01-2021 History of Past illness Narrative* Problem Noted Date Resolved Date Cannabis abuse 08/09/2020 08/09/2020 documented as of this encounter (statuses as of 12/11/2021) [address]01-[address]21 History of Past illness Narrative* Problem Noted Date Resolved Date Cannabis abuse 08/09/2020 08/09/2020 documented as of this encounter (statuses as of 01/13/2022) [address]01-[address]21 History of Past illness Narrative* Problem Noted Date Resolved Date Cannabis abuse 08/09/2020 08/09/2020 documented as of this encounter (statuses as of 02/17/2022) [address]01-[address]21 History of Past illness Narrative* Problem Noted Date Resolved Date Cannabis abuse 08/09/2020 08/09/2020 documented as of this encounter (statuses as of 03/18/2022) [address]01-[address]21 History of Past illness Narrative* Problem Noted Date Resolved Date Cannabis abuse 08/09/2020 08/09/2020 documented as of this encounter (statuses as of 04/15/2022) [address]01-[address]21 History of Past illness Narrative* Problem Noted Date Resolved Date Cannabis abuse 08/09/2020 08/09/2020 documented as of this encounter (statuses as of 04/24/2022) [address]01-[address]21 History of Past illness Narrative* Problem Noted Date Resolved Date Cannabis abuse 08/09/2020 08/09/2020 documented as of this encounter (statuses as of 06/09/2022) [address]01-[address]21 History of Past illness Narrative* Problem Noted Date Resolved Date Cannabis abuse 08/09/2020 08/09/2020 documented as of this encounter (statuses as of 08/06/2022) [address]21 History of Past illness Narrative* Problem Noted Date Resolved Date Cannabis abuse 08/09/2020 08/09/2020 documented as of this encounter (statuses as of 08/12/2022) [address]01-[address]21 History of Past illness Narrative* Problem Noted Date Diagnosed Date Resolved Date Cannabis abuse 08/09/2020 08/09/2020 documented as of this encounter (statuses as of 09/12/2022) [facility] History of Past illness Narrative* Problem Noted Date Diagnosed Date Resolved Date Cannabis abuse 08/09/2020 08/09/2020 documented as of this encounter (statuses as of 09/17/2022) [address]21 History of Past illness Narrative* Problem Noted Date Diagnosed Date Resolved Date Cannabis abuse 08/09/2020 08/09/2020 documented as of this encounter (statuses as of 09/24/2022) [address]01-[address]21 History of Past illness Narrative* Problem Noted Date Diagnosed Date Resolved Date Cannabis abuse 08/09/2020 08/09/2020 documented as of this encounter (statuses as of 10/15/2022) [address]01-[address]21 History of Past illness Narrative* Problem Noted Date Diagnosed Date Resolved Date Cannabis abuse 08/09/2020 08/09/2020 documented as of this encounter (statuses as of 10/23/2022) [facility] History of Past illness Narrative* Problem Noted Date Diagnosed Date Resolved Date Cannabis abuse 08/09/2020 08/09/2020 documented as of this encounter (statuses as of 10/26/2022) [address]21 History of Past illness Narrative* Problem Noted Date Diagnosed Date Resolved Date Cannabis abuse 08/09/2020 08/09/2020 documented as of this encounter (statuses as of 12/05/2022) [address]21 History of Past illness Narrative* Problem Noted Date Diagnosed Date Resolved Date Cannabis abuse 08/09/2020 08/09/2020 documented as of this encounter (statuses as of 12/14/2022) [address]01-[address]21 History of Past illness Narrative* Problem Noted Date Diagnosed Date Resolved Date Cannabis abuse 08/09/2020 08/09/2020 documented as of this encounter (statuses as of 12/14/2022) [address]01-[address]21 History of Past illness Narrative* Problem Noted Date Diagnosed Date Resolved Date Cannabis abuse 08/09/2020 08/09/2020 documented as of this encounter (statuses as of 12/19/2022) [facility] History of Past illness Narrative* Problem Noted Date Diagnosed Date Resolved Date Cannabis abuse 08/09/2020 08/09/2020 documented as of this encounter (statuses as of 01/13/2023) [facility] History of Past illness Narrative* Problem Noted Date Diagnosed Date Resolved Date Cannabis abuse 08/09/2020 08/09/2020 documented as of this encounter (statuses as of 01/20/2023) [facility] Diagnosis Arm numbness left Disturbance of skin sensation Left arm pain Pain in limb [facility] Diagnosis Situational anxiety Other anxiety states [facility] Diagnosis Screening for ischemic heart disease- Primary [facility] Diagnosis Palpitations Shortness of breath Other chest pain [facility] Diagnosis Hypothyroidism, unspecified type [facility] Diagnosis Abnormal mammogram Abnormal mammogram, unspecified [facility] Diagnosis Abnormal mammogram Abnormal mammogram, unspecified [facility] Diagnosis Abnormal ultrasound of breast- Primary Other (abnormal) findings on radiological examination of breast [facility] Diagnosis Hypothyroidism, unspecified type- Primary [facility] Diagnosis Chronic left shoulder pain- Primary Pain in joint, shoulder region Instability of left shoulder joint Other joint derangement, not elsewhere classified, shoulder region Right knee pain, unspecified chronicity [facility] Diagnosis Acute pain of left shoulder Neck pain Cervicalgia Herniated disc, cervical Displacement of cervical intervertebral disc without myelopathy Multiple subsegmental pulmonary emboli without acute cor pulmonale (HCC) Situational anxiety Other anxiety states [facility] Diagnosis Abnormal ultrasound of breast Other (abnormal) findings on radiological examination of breast [facility] Diagnosis Abnormal ultrasound of breast Other (abnormal) findings on radiological examination of breast [facility] Diagnosis Primary osteoarthritis of left shoulder- Primary Primary localized osteoarthrosis, shoulder region Chronic left shoulder pain Pain in joint, shoulder region Instability of left shoulder joint Other joint derangement, not elsewhere classified, shoulder region Right knee pain, unspecified chronicity Cervical radiculopathy Brachial neuritis or radiculitis nos documented [facility] Diagnosis Primary insomnia Persistent disorder of initiating or maintaining sleep [facility] Diagnosis Acute bronchitis, unspecified organism- Primary Acute non-recurrent sinusitis, unspecified location [facility] Diagnosis Encounter for screening mammogram for breast cancer [facility] Diagnosis Primary insomnia Persistent disorder of initiating or maintaining sleep [facility] Diagnosis Hypothyroidism, unspecified type- Primary Hyperlipidemia, unspecified hyperlipidemia type Fatigue, unspecified type [facility] Diagnosis Burning sensation- Primary Disturbance of skin sensation Tingling Disturbance of skin sensation [facility] Diagnosis Onychomycosis- Primary Dermatophytosis of nail Hypothyroidism, unspecified type Paresthesia of foot, bilateral FRANCISCO (generalized anxiety disorder) Generalized anxiety disorder Fatigue, unspecified type Right knee pain, unspecified chronicity [facility] Diagnosis Right knee pain, unspecified chronicity- Primary [facility] Diagnosis Primary osteoarthritis of right knee- Primary Primary localized osteoarthrosis, lower leg documented [facility] Diagnosis Foreign body in conjunctival sac, left, initial encounter- Primary [facility] Diagnosis Plantar fasciitis, bilateral- Primary Plantar fascial fibromatosis Tarsal tunnel syndrome, unspecified laterality [facility] Diagnosis Chronic left shoulder pain Pain in joint, shoulder region Instability of left shoulder joint Other joint derangement, not elsewhere classified, shoulder region [facility] Diagnosis Plantar fasciitis, bilateral Plantar fascial fibromatosis [facility] Diagnosis Hypothyroidism, unspecified type- Primary Arm numbness left Disturbance of skin sensation Left arm pain Pain in limb FRANCISCO (generalized anxiety disorder) Generalized anxiety disorder Fatigue, unspecified type Right knee pain, unspecified chronicity Primary osteoarthritis of right knee Primary localized osteoarthrosis, lower leg [facility] Diagnosis Primary osteoarthritis of right knee- Primary Primary localized osteoarthrosis, lower leg Chronic pain of right knee [facility] Diagnosis Hyperopia, left- Primary Regular astigmatism, bilateral Presbyopia Refractive amblyopia of left eye Refractive amblyopia documented in this encounter [facility] for referral (narrative)* Diagnostic Procedure Only (Routine) - Closed Specialty Diagnoses / Procedures Referred By Contact Referred To Contact MOLECULAR & FUNCTIONAL IMAGING Diagnoses Palpitations Shortness of breath Other chest pain Procedures NM CARDIAC PERF STRESS/PHARM MYOCARDIAL SPECT MULTIPLE STUDIES Bhavya Luevano MD [address] [place] [address] [facility] [address] [place] [address] Referral ID Status Reason Start Date Expiration Date V isits Requested Visits Authorized [id number] Closed Auto-Generate d Referral 04/22/2021 05/22/2022 1 1 [facility] for referral (narrative)* Diagnostic Procedure Only (Routine) - Closed Specialty Diagnoses / Procedures Referred By Contac t Referred To Contact BR IMAGING Diagnoses Abnormal mammogram Procedures US BREAST LTD LT US BREAST UNI REAL TIME WITH IMAGE LIMITED Maryellen Riggs APRN.CNP [address] [place] [address] Br Imaging [address] [place] [address] Referral ID Status Reason Start Date Expiration Date V isits Requested Visits Authorized [id number] Closed Auto-Generate d Referral 09/25/2021 10/25/2022 1 1 [facility] for referral (narrative)* Diagnostic Procedure Only (Routine) - Authorized Specialty Diagnoses / Procedures Referred By Contac t Referred To Contact BR IMAGING Diagnoses Abnormal ultrasound of breast Procedures US BIOPSY BREAST LT BX BREAST W/DEVICE 1ST LESION ULTRASOUND GUID Scarlett Sheehan MD [address] [facility] [place] [address] Br Imaging [address] [place] [address] Referral ID Status Reason Start Date Expiration Date Visits Requested Visits Authorized [id number] Authorized Auto-Generat ed Referral 11/08/2021 12/08/2022 1 1 * Diagnostic Procedure Only (Routine) - Authorized Specialty Diagnoses / Procedures Referred By Contac t Referred To Contact BR IMAGING Diagnoses Abnormal ultrasound of breast Procedures US BREAST LTD LT US BREAST UNI REAL TIME WITH IMAGE LIMITED Scarlett Sheehan MD [address] [facility] [address] Br Imaging [address] [place] [address] Referral ID Status Reason Start Date Expiration Date Visits Requested Visits Authorized [id number] Authorized Auto-Generat ed Referral 11/08/2021 12/08/2022 1 1 [facility] for referral (narrative)* Diagnostic Procedure Only (Routine) - Closed Specialty Diagnoses / Procedures [facility] Referred To Contact BR IMAGING Diagnoses Abnormal ultrasound of breast Procedures US BREAST LTD LT US BREAST UNI REAL TIME WITH IMAGE LIMITED Scarlett Sheehan MD [address] [facility] [address] Br Imaging [address] [place] [address] Referral ID Status Reason Start Date Expiration Date V isits Requested Visits Authorized [id number] Closed Auto-Generate d Referral 11/08/2021 12/08/2022 1 1 [facility] for referral (narrative)* Diagnostic Procedure Only (Routine) - Closed Specialty Diagnoses / Procedures Referred By Contac t Referred To Contact BR IMAGING Diagnoses Abnormal ultrasound of breast Procedures US BIOPSY BREAST LT BX BREAST W/DEVICE 1ST LESION ULTRASOUND Scarlett Aldridge MD [address] [place] [address] Br Imaging [address] [place] [address] Referral ID Status Reason Start Date Expiration Date V isits Requested Visits Authorized [id number] Closed Auto-Generate d Referral 11/08/2021 12/08/2022 1 1 [facility] for referral (narrative)* Diagnostic Procedure Only (Routine) - Pending Review Specialty Diagnoses / Procedures Referred By Tracyac t Referred To Contact BR IMAGING Diagnoses Encounter for screening mammogram for breast cancer Procedures MATHEUS SCREENING SCREENING MAMMOGRAPHY BI 2-VIEW BREAST INC Singh Driscoll DO [address] [place] [address] Br Imaging [address] [place] [address] Referral ID Status Reason Start Date Expiration Date Visits Requested Visits Authorized [id number] Pending Review Auto-Generat ed Referral 06/04/2022 07/04/2023 1 1 T [facility] for referral (narrative)* Diagnostic Procedure Only (Routine) - Pending Review Specialty Diagnoses / Procedures Referred By Tracyac t Referred To Contact XR IMAGING Diagnoses Right knee pain, unspecified chronicity Procedures XR KNEE GENERAL 4V AP BOTH/PA BOTH/LAT/MERC RIGHT RADIOLOGIC EXAM KNEE COMPLETE 4/MORE VIEWS Joe Dailey APRN.CNP [address] [place] [address] Xr Imaging Referral ID Status Reason Start Date Expiration Date Visits Requested Visits Authorized [id number] Pending Review Auto-Generat ed Referral 09/23/2022 10/18/2023 1 1 [facility] for referral (narrative)* Diagnostic Procedure Only (Routine) - Closed Specialty Diagnoses / Procedures Referred By Contac t Referred To Contact XR IMAGING Diagnoses Plantar fasciitis, bilateral Procedures XR FOOT GENERAL 3V AP/LAT/OBL BILATERAL RADEX FOOT COMPLETE MINIMUM 3 VIEWS Kaylee Kumari [address] [place] [address] [place] [address] Referral ID Status Reason Start Date Expiration Date V isits Requested Visits Authorized [id number] Closed Auto-Generate d Referral 10/24/2022 11/23/2023 1 1 [facility] for referral (narrative)* Diagnostic Procedure Only (Routine) - Closed Specialty Diagnoses / Procedures Referred By Contac t Referred To Contact XR IMAGING Diagnoses Plantar fasciitis, bilateral Procedures XR FOOT GENERAL 3V AP/LAT/OBL BILATERAL RADEX FOOT COMPLETE MINIMUM 3 VIEWS [address]lee [address] [place] [address] [place] [address] Referral ID Status Reason Start Date Expiration Date V isits Requested Visits Authorized [id number] Closed Auto-Generate d Referral 10/24/2022 11/23/2023 1 1 [facility] for visit Narrative* Diagnostic Procedure Only (Routine) - Closed Specialty Diagnoses / Procedures Referred By Contact Referred To Contact MOLECULAR & FUNCTIONAL IMAGING Diagnoses Palpitations Shortness of breath Other chest pain Procedures NM CARDIAC PERF STRESS/PHARM MYOCARDIAL SPECT MULTIPLE STUDIES Bhavya Luevano MD [address] [place] [address] Molecular & Functional Imaging [address] [place] [address] Referral ID Status Reason Start Date Expiration Date V isits Requested Visits Authorized [id number] Closed Auto-Generate d Referral 04/22/2021 05/22/2022 1 1 [facility] for visit Narrative* Diagnostic Procedure Only (Routine) - Closed Specialty Diagnoses / Procedures Referred By Contac t Referred To Contact BR IMAGING Diagnoses Abnormal mammogram Procedures MATHEUS DIAGNOSTIC LT DIAGNOSTIC MAMMOGRAPHY COMPUTER-AIDED DETCJ UNI Maryellen Riggs, HYDRAULIC ENGINEER.[employer] [address] [place] [address] Br Imaging [address] [place] [address] Referral ID Status Reason Start Date Expiration Date V isits Requested Visits Authorized [id number] Closed Auto-Generate d Referral 10/03/2021 11/02/2022 1 1 [facility] for visit Narrative* Diagnostic Procedure Only (Routine) - Closed Specialty Diagnoses / Procedures Referred By Contac t Referred To Contact BR IMAGING Diagnoses Abnormal ultrasound of breast Procedures US BREAST LTD LT US BREAST UNI REAL TIME WITH IMAGE LIMITED Scarlett Sheehan MD [address] [place] [address] Br Imaging [address] [place] [address] Referral ID Status Reason Start Date Expiration Date V isits Requested Visits Authorized [id number] Closed Auto-Generate d Referral 11/08/2021 12/08/2022 1 1 [facility] for visit Narrative* Diagnostic Procedure Only (Routine) - Closed Specialty Diagnoses / Procedures Referred By Contac t Referred To Contact BR IMAGING Diagnoses Abnormal ultrasound of breast Procedures US BIOPSY BREAST LT BX BREAST W/DEVICE 1ST LESION ULTRASOUND GUID Scarlett Sheehan MD [address] [place] [address] Br Imaging [address] [place] [address] Referral ID Status Reason Start Date Expiration Date V isits Requested Visits Authorized [id number] Closed Auto-Generate d Referral 11/08/2021 12/08/2022 1 1 [facility] for visit Narrative* Diagnostic Procedure Only (Routine) - Closed Specialty Diagnoses / Procedures Referred By Nadine t Referred To Contact XR IMAGING Diagnoses Plantar fasciitis, bilateral Procedures XR FOOT GENERAL 3V AP/LAT/OBL BILATERAL RADEX FOOT COMPLETE MINIMUM 3 VIEWS Kaylee Kumari [address] [place] [address] [place] [address] Referral ID Status Reason Start Date Expiration Date V isits Requested Visits Authorized [id number] Closed Auto-Generate d Referral 10/24/2022 11/23/2023 1 1 [facility] Summary Purpose Family History No Family History Records FoundNo Family History Records FoundNo Family History Records FoundNo Family History Records FoundNo Family History Records FoundNo Family History Records Found Advance Directives No Advanced Directives Records FoundDocuments on File Type Date Recorded Patient Jordan Worker Expl anation Advance Directive(s) 01/14/2020 4:28 PM Advance Directive(s) 12/25/2019 9:19 PM Advance Directive(s) 12/06/2019 8:02 PM Advance Directive(s) 06/29/2015 8:16 AM Advance Directive(s) 06/08/2015 5:09 PM Documents on File Type Date Recorded Patient Jordan Worker Expl anation Advance Directive(s) 01/14/2020 4:28 PM Advance Directive(s) 12/25/2019 9:19 PM Advance Directive(s) 12/06/2019 8:02 PM Advance Directive(s) 06/29/2015 8:16 AM Advance Directive(s) 06/08/2015 5:09 PM Reason for Referral Specialty Diagnoses / Procedures Referred By Contac t Referred To Contact MR IMAGING Diagnoses Chronic left shoulder pain Instability of left shoulder joint Procedures MRI SHOULDER WO IVCON LT MRI ANY JT UPPER EXTREMITY W/O CONTRAST MATRL Singh Baez, DO [address] [place] [address] Mr Imaging Referral ID Status Reason Start Date Expiration Date Visits Requested Visits Authorized [id number] Authorized Auto-Generat ed Referral 12/18/2022 1 1 Specialty Diagnoses / Procedures Referred By Contac t Referred To Contact XR IMAGING Diagnoses Right knee pain, unspecified chronicity Procedures XR KNEE GENERAL 4V AP BOTH/PA BOTH/LAT/MERC RIGHT RADIOLOGIC EXAM KNEE COMPLETE 4/MORE VIEWS Singh Baez, DO [address] [place] [address] Xr Imaging Referral ID Status Reason Start Date Expiration Date V isits Requested Visits Authorized [id number] Closed Auto-Generate d Referral 11/18/2021 12/18/2022 1 1 Specialty Diagnoses / Procedures Referred By Contac t Referred To Contact Orthopedics Diagnoses Chronic left shoulder pain Instability of left shoulder joint Right knee pain, unspecified chronicity Procedures CONSULT TO ORTHOPAEDICS OFFICE/OUTPATIENT [facility] MDM 60-74 MINUTES Singh Baez, DO [address] [place] [address] Referral ID Status Reason Start Date Expiration Date Visits Requested Visits Authorized [id number] Pending Review PCP Requested Referral 2 11/18/2022 1 1 Specialty Diagnoses / Procedures Referred By Contac t Referred To Contact [facility] Diagnoses Chronic left shoulder pain Instability of left shoulder joint Procedures CONSULT TO PHYSICAL THERAPY PHYSICAL THERAPY EVALUATION [facility] COMPLEX 45 MINS Singh Baez, DO [address] [place] [address] [facility] [place] [address] [place] [address] Referral ID Status Reason Start Date Expiration Date Visits Requested Visits Authorized [id number] Pending Review Auto-Generat ed Referral 2 11/18/2022 1 1 Specialty Diagnoses / Procedures Referred By Contac t Referred To Contact MR IMAGING Diagnoses Chronic left shoulder pain Instability of left shoulder joint Procedures MRI SHOULDER WO IVCON LT MRI ANY JT UPPER EXTREMITY W/O CONTRAST MATRL Singh Baez, DO [address] [place] [address] [place] [address] Referral ID Status Reason Start Date Expiration Date V isits Requested Visits Authorized [id number] Closed Auto-Generate d Referral 11/18/2021 12/18/2022 1 1 Specialty Diagnoses / Procedures Referred By Contac t Referred To Contact CT IMAGING Diagnoses Chronic pain of right knee Procedures CT KNEE WO IVCON RIGHT CT LOWER EXTREMITY W/O CONTRAST MATERIAL Belgica Enriquez MD [address] [address] [place] [address] Referral ID Status Reason Start Date Expiration Date Visits Requested Visits Authorized [id number] Authorized Auto-Generat ed Referral 01/13/2023 02/12/2024 1 1 Medications Administered Section Inactive Administered Medications - up to 3 most recent administrations Medication Order MAR Action Action Date Dose Rate Site betamethasone acetate-betamethasone sodium phosphate 6 mg injection (CELESTONE) 6 mg, Injection - FOR ORTHO USE ONLY, ONE TIME INJECTION, 1 dose, Starting on Thu12/16/21 at 1141, Until Thu12/16/21 at 1141 Given 12/16/2021 11:41 AM EST 6 mg Shoulder, Left lidocaine (PF) 10 mg/mL (1 %) 4 mL injection (XYLOCAINE) 4 mL, Injection - FOR ORTHO USE ONLY, ONE TIME INJECTION, 1 dose, Starting on Thu12/16/21 at 1141, Until Thu12/16/21 at 1141 Given 12/16/2021 11:41 AM EST 4 mL Shoulder, Left Inactive Administered Medications - up to 3 most recent administrations Medication Order MAR Action Action Date Dose Rate Site betamethasone acetate-betamethasone sodium phosphate 12 mg injection (CELESTONE) 12 mg, Injection - FOR ORTHO USE ONLY, ONE TIME INJECTION, 1 dose, Starting on Thu10/14/22 at 1908, Until Thu10/14/22 at 1908 Given 10/14/2022 7:08 PM EDT 12 mg Knee, Right lidocaine (PF) 10 mg/mL (1 %) 4 mL injection (XYLOCAINE) 4 mL, Injection - FOR ORTHO USE ONLY, ONE TIME INJECTION, 1 dose, Starting on Thu10/14/22 at 1908, Until Thu10/14/22 at 1908 Given 10/14/2022 7:08 PM EDT 4 mL Knee, Right Inactive Administered Medications - up to 3 most recent administrations Medication Order MAR Action Action Date Dose Rate Site tropicamide 1 % 1 Drop (MYDRIACYL) 1 Drop, BOTH EYES, ONCE, 1 dose, On Thu01/19/23 at 1630, FOR THE EYE Given 01/19/2023 4:30 PM EST 1 Drop Additional Source Comments INFORMATION SOURCE (unrecogn ized section and content) DATE CREATED AUTHOR AUTHOR'S ORGANIZ ATION 07/23/2019 [facility] DATE CREATED AUTHOR AUTHOR'S ORGANIZ ATION 07/26/2019 [facility] DATE CREATED AUTHOR AUTHOR'S ORGANIZ ATION 12/07/2021 [facility] DATE CREATED AUTHOR AUTHOR'S ORGANIZ ATION 10/16/2022 [facility] DATE CREATED AUTHOR AUTHOR'S ORGANIZ ATION 02/04/2023 [facility] Source Comments (unrecognize d section and content) In the event this informatio n is protected by the Federal Confidentiality of Alcohol and Drug Abuse Patient Records regulations: The Federal rules restrict any use of the information to criminally investigate or prosecute any alcohol or drug abuse patient.[facility] the event this information is protected by the Federal Confidentiality of Alcohol and Drug Abuse Patient Records regulations: The Federal rules restrict any use of the information to criminally investigate or prosecute any alcohol or drug abuse patient.[facility] the event this information is protected by the Federal Confidentiality of Alcohol and Drug Abuse Patient Records regulations: The Federal rules restrict any use of the information to criminally investigate or prosecute any alcohol or drug abuse patient.[facility] the event this information is protected by the Federal Confidentiality of Alcohol and Drug Abuse Patient Records regulations: The Federal rules restrict any use of the information to criminally investigate or prosecute any alcohol or drug abuse patient.[facility] the event this information is protected by the Federal Confidentiality of Alcohol and Drug Abuse Patient Records regulations: The Federal rules restrict any use of the information to criminally investigate or prosecute any alcohol or drug abuse patient.[facility] the event this information is protected by the Federal Confidentiality of Alcohol and Drug Abuse Patient Records regulations: The Federal rules restrict any use of the information to criminally investigate or prosecute any alcohol or drug abuse patient.[facility] the event this information is protected by the Federal Confidentiality of Alcohol and Drug Abuse Patient Records regulations: The Federal rules restrict any use of the information to criminally investigate or prosecute any alcohol or drug abuse patient.[facility] the event this information is protected by the Federal Confidentiality of Alcohol and Drug Abuse Patient Records regulations: The Federal rules restrict any use of the information to criminally investigate or prosecute any alcohol or drug abuse patient.[facility] the event this information is protected by the Federal Confidentiality of Alcohol and Drug Abuse Patient Records regulations: The Federal rules restrict any use of the information to criminally investigate or prosecute any alcohol or drug abuse patient.[facility] the event this information is protected by the Federal Confidentiality of Alcohol and Drug Abuse Patient Records regulations: The Federal rules restrict any use of the information to criminally investigate or prosecute any alcohol or drug abuse patient.[facility] the event this information is protected by the Federal Confidentiality of Alcohol and Drug Abuse Patient Records regulations: The Federal rules restrict any use of the information to criminally investigate or prosecute any alcohol or drug abuse patient.[facility] the event this information is protected by the Federal Confidentiality of Alcohol and Drug Abuse Patient Records regulations: The Federal rules restrict any use of the information to criminally investigate or prosecute any alcohol or drug abuse patient.[facility] the event this information is protected by the Federal Confidentiality of Alcohol and Drug Abuse Patient Records regulations: The Federal rules restrict any use of the information to criminally investigate or prosecute any alcohol or drug abuse patient.[facility] the event this information is protected by the Federal Confidentiality of Alcohol and Drug Abuse Patient Records regulations: The Federal rules restrict any use of the information to criminally investigate or prosecute any alcohol or drug abuse patient.[facility] the event this information is protected by the Federal Confidentiality of Alcohol and Drug Abuse Patient Records regulations: The Federal rules restrict any use of the information to criminally investigate or prosecute any alcohol or drug abuse patient.[facility] HospitalIn the event this information is protected by the Federal Confidentiality of Alcohol and Drug Abuse Patient Records regulations: The Federal rules restrict any use of the information to criminally investigate or prosecute any alcohol or drug abuse patient.[facility] HospitalIn the event this information is protected by the Federal Confidentiality of Alcohol and Drug Abuse Patient Records regulations: The Federal rules restrict any use of the information to criminally investigate or prosecute any alcohol or drug abuse patient.[facility] HospitalIn the event this information is protected by the Federal Confidentiality of Alcohol and Drug Abuse Patient Records regulations: The Federal rules restrict any use of the information to criminally investigate or prosecute any alcohol or drug abuse patient.[facility] HospitalIn the event this information is protected by the Federal Confidentiality of Alcohol and Drug Abuse Patient Records regulations: The Federal rules restrict any use of the information to criminally investigate or prosecute any alcohol or drug abuse patient.[facility] HospitalIn the event this information is protected by the Federal Confidentiality of Alcohol and Drug Abuse Patient Records regulations: The Federal rules restrict any use of the information to criminally investigate or prosecute any alcohol or drug abuse patient.[facility] HospitalIn the event this information is protected by the Federal Confidentiality of Alcohol and Drug Abuse Patient Records regulations: The Federal rules restrict any use of the information to criminally investigate or prosecute any alcohol or drug abuse patient.[facility] HospitalIn the event this information is protected by the Federal Confidentiality of Alcohol and Drug Abuse Patient Records regulations: The Federal rules restrict any use of the information to criminally investigate or prosecute any alcohol or drug abuse patient.[facility] HospitalIn the event this information is protected by the Federal Confidentiality of Alcohol and Drug Abuse Patient Records regulations: The Federal rules restrict any use of the information to criminally investigate or prosecute any alcohol or drug abuse patient.[facility] HospitalIn the event this information is protected by the Federal Confidentiality of Alcohol and Drug Abuse Patient Records regulations: The Federal rules restrict any use of the information to criminally investigate or prosecute any alcohol or drug abuse patient.[facility] HospitalIn the event this information is protected by the Federal Confidentiality of Alcohol and Drug Abuse Patient Records regulations: The Federal rules restrict any use of the information to criminally investigate or prosecute any alcohol or drug abuse patient.[facility] HospitalIn the event this information is protected by the Federal Confidentiality of Alcohol and Drug Abuse Patient Records regulations: The Federal rules restrict any use of the information to criminally investigate or prosecute any alcohol or drug abuse patient.[facility] HospitalIn the event this information is protected by the Federal Confidentiality of Alcohol and Drug Abuse Patient Records regulations: The Federal rules restrict any use of the information to criminally investigate or prosecute any alcohol or drug abuse patient.[facility] HospitalIn the event this information is protected by the Federal Confidentiality of Alcohol and Drug Abuse Patient Records regulations: The Federal rules restrict any use of the information to criminally investigate or prosecute any alcohol or drug abuse patient.[facility] HospitalIn the event this information is protected by the Federal Confidentiality of Alcohol and Drug Abuse Patient Records regulations: The Federal rules restrict any use of the information to criminally investigate or prosecute any alcohol or drug abuse patient.[facility] HospitalIn the event this information is protected by the Federal Confidentiality of Alcohol and Drug Abuse Patient Records regulations: The Federal rules restrict any use of the information to criminally investigate or prosecute any alcohol or drug abuse patient.[facility] HospitalIn the event this information is protected by the Federal Confidentiality of Alcohol and Drug Abuse Patient Records regulations: The Federal rules restrict any use of the information to criminally investigate or prosecute any alcohol or drug abuse patient.[facility] HospitalIn the event this information is protected by the Federal Confidentiality of Alcohol and Drug Abuse Patient Records regulations: The Federal rules restrict any use of the information to criminally investigate or prosecute any alcohol or drug abuse patient.[facility] HospitalIn the event this information is protected by the Federal Confidentiality of Alcohol and Drug Abuse Patient Records regulations: The Federal rules restrict any use of the information to criminally investigate or prosecute any alcohol or drug abuse patient.[facility] HospitalIn the event this information is protected by the Federal Confidentiality of Alcohol and Drug Abuse Patient Records regulations: The Federal rules restrict any use of the information to criminally investigate or prosecute any alcohol or drug abuse patient.[facility] HospitalIn the event this information is protected by the Federal Confidentiality of Alcohol and Drug Abuse Patient Records regulations: The Federal rules restrict any use of the information to criminally investigate or prosecute any alcohol or drug abuse patient.[facility] HospitalIn the event this information is protected by the Federal Confidentiality of Alcohol and Drug Abuse Patient Records regulations: The Federal rules restrict any use of the information to criminally investigate or prosecute any alcohol or drug abuse patient.[facility] HospitalIn the event this information is protected by the Federal Confidentiality of Alcohol and Drug Abuse Patient Records regulations: The Federal rules restrict any use of the information to criminally investigate or prosecute any alcohol or drug abuse patient.[facility] HospitalIn the event this information is protected by the Federal Confidentiality of Alcohol and Drug Abuse Patient Records regulations: The Federal rules restrict any use of the information to criminally investigate or prosecute any alcohol or drug abuse patient.[facility] HospitalIn the event this information is protected by the Federal Confidentiality of Alcohol and Drug Abuse Patient Records regulations: The Federal rules restrict any use of the information to criminally investigate or prosecute any alcohol or drug abuse patient.[facility] HospitalIn the event this information is protected by the Federal Confidentiality of Alcohol and Drug Abuse Patient Records regulations: The Federal rules restrict any use of the information to criminally investigate or prosecute any alcohol or drug abuse patient.[facility] HospitalIn the event this information is protected by the Federal Confidentiality of Alcohol and Drug Abuse Patient Records regulations: The Federal rules restrict any use of the information to criminally investigate or prosecute any alcohol or drug abuse patient.[facility] HospitalIn the event this information is protected by the Federal Confidentiality of Alcohol and Drug Abuse Patient Records regulations: The Federal rules restrict any use of the information to criminally investigate or prosecute any alcohol or drug abuse patient.[facility] HospitalIn the event this information is protected by the Federal Confidentiality of Alcohol and Drug Abuse Patient Records regulations: The Federal rules restrict any use of the information to criminally investigate or prosecute any alcohol or drug abuse patient.[facility] HospitalIn the event this information is protected by the Federal Confidentiality of Alcohol and Drug Abuse Patient Records regulations: The Federal rules restrict any use of the information to criminally investigate or prosecute any alcohol or drug abuse patient.[facility] Reason for Visit (unrecogniz ed section and content) Reason Comments Medication Problem Reason Comments Insurance Authorization fluoxetine Reason Comments Radiology NM Specialty Diagnoses / Procedures Referred By Contact Referred To Contact MOLECULAR & FUNCTIONAL IMAGING Diagnoses Palpitations Shortness of breath Other chest pain Procedures NM CARDIAC PERF STRESS/PHARM MYOCARDIAL SPECT MULTIPLE STUDIES Bhavya Luevano MD [address] [place] [id number] Molecular & Functional Imaging [address] [place] [address] Referral ID Status Reason Start Date Expiration Date V isits Requested Visits Authorized [id number] Closed Auto-Generate d Referral 04/22/2021 05/22/2022 1 1 Reason Onset Date Comments Refill Request 06/24/2021 Reason Comments Referral Request Patient Update Reason Comments Patient Update Reason Comments Patient Question Reason Comments Insurance Authorization Cyclobenzaprine Reason Comments Radiology US Specialty Diagnoses / Procedures Referred By Contac t Referred To Contact BR IMAGING Diagnoses Abnormal mammogram Procedures US BREAST LTD LT US BREAST UNI REAL TIME WITH IMAGE LIMITED Maryellen Riggs APRN.[employer] [address] [place] [address] [facility] [address] [place] [address] Referral ID Status Reason Start Date Expiration Date V isits Requested Visits Authorized [id number] Closed Auto-Generate d Referral 09/25/2021 10/25/2022 1 1 Reason Comments Breast Problem Reason Comments Results Reason Comments 6 Month Exam Reason Comments Patient Question Medication Problem Reason Comments New Pain Specialty Diagnoses / Procedures Referred By Contac t Referred To Contact Orthopedics Diagnoses Chronic left shoulder pain Instability of left shoulder joint Right knee pain, unspecified chronicity Procedures CONSULT TO ORTHOPAEDICS OFFICE/OUTPATIENT NEW HIGH MDM 60-74 MINUTES Singh Baez DO [address] [place] [address] Referral ID Status Reason Start Date Expiration Date Visits Requested Visits Authorized [id number] Pending Review PCP Requested Referral 11/18/2022 1 1 Reason Comments Refill Request Reason Comments Cough Reason Onset Date Comments Population Health Navigation Outreach 04/24/2022 [place] [facility] Reason Onset Date Comments Refill Request 08/05/2022 Reason Comments Orders Reason Onset Date Comments EMG 09/12/2022 Specialty Diagnoses / Procedures Referred By Contac t Referred To Contact [facility] Diagnoses Numbness and tingling of both feet Procedures EMG(NEURO/NI) NERVE CONDUCTION STUDIES 9-10 STUDIES Kaylee [address] [place] [address] [facility] [place] [address] [place] [address] Referral ID Status Reason Start Date Expiration Date V isits Requested Visits Authorized [id number] Closed Auto-Generate d Referral 08/20/2022 02/08/2023 1 1 Reason Comments F/U 3 Month Reason Comments Swelling Knee Pain New Reason Comments Foreign Body Sensation Left eye Reason Comments Established Patient Pain Reason Onset Date Comments Population Health Navigation Outreach 12/05/2022 [place] care gap Specialty Diagnoses / Procedures Referred By Contac t Referred To Contact MR IMAGING Diagnoses Chronic left shoulder pain Instability of left shoulder joint Procedures MRI SHOULDER WO IVCON LT MRI ANY JT UPPER EXTREMITY W/O CONTRAST MATRL Singh Baez, DO [address] [place] [address] [place] [address] Referral ID Status Reason Start Date Expiration Date V isits Requested Visits Authorized [id number] Closed Auto-Generate d Referral 11/18/2021 12/18/2022 1 1 Reason Comments Follow Up Reason Comments Refractive Amblyopia Evaluation Left eye Care Teams (unrecognized sec tion and content) Oceanographer Physical Relationship Specialty Start Date End Date Singh Baez, DO [address] [place] [address] PCP - General Family Practice 11/22/14 Oceanographer Physical Relationship Specialty Start Date End Date Singh Baez, DO [address] [place] [address] PCP - General Family Practice 11/22/14 Oceanographer Physical Relationship Specialty Start Date End Date Singh Baez, DO [address] [place] [address] PCP - General Family Practice 11/22/14 Oceanographer Physical Relationship Specialty Start Date End Date Singh Baez, DO [address] [place] [address] PCP - General Family Practice 11/22/14 Oceanographer Physical Relationship Specialty Start Date End Date Singh Baez, DO [address] [place] [address] PCP - General Family Practice 11/22/14 Oceanographer Physical Relationship Specialty Start Date End Date Singh Baez, DO [address] [place] [address] PCP - General Family Practice 11/22/14 Oceanographer Physical Relationship Specialty Start Date End Date Singh Baez, DO [address] [place] [address] PCP - General Family Practice 11/22/14 Oceanographer Physical Relationship Specialty Start Date End Date Singh Baez, DO [address] [place] [address] PCP - General Family Practice 11/22/14 Oceanographer Physical Relationship Specialty Start Date End Date Singh Baez, DO [address] [place] [address] PCP - General Family Practice 11/22/14 Oceanographer Physical Relationship Specialty Start Date End Date Singh Baez, DO [address] [place] [address] PCP - General Family Practice 11/22/14 Oceanographer Physical Relationship Specialty Start Date End Date Singh Baez, DO [address] [place] [address] PCP - General Family Medicine 11/22/14 Oceanographer Physical Relationship Specialty Start Date End Date Singh Baez, DO [address] [place] [address] PCP - General Family Medicine 11/22/14 Oceanographer Physical Relationship Specialty Start Date End Date Singh Baez, DO [address] [place] [address] PCP - General Family Medicine 11/22/14 Oceanographer Physical Relationship Specialty Start Date End Date Singh Baez, DO [address] [place] [address] PCP - General Family Medicine 11/22/14 Oceanographer Physical Relationship Specialty Start Date End Date Singh Baez, DO [address] [place] [address] PCP - General Family Medicine 11/22/14 Oceanographer Physical Relationship Specialty Start Date End Date Singh Baez, DO [address] [place] [address] PCP - General Family Medicine 11/22/14 Oceanographer Physical Relationship Specialty Start Date End Date Singh Baez, DO [address] [place] [address] PCP - General Family Medicine 11/22/14 Oceanographer Physical Relationship Specialty Start Date End Date Singh Baez, DO [address] [place] [address] PCP - General Family Medicine 11/22/14 Oceanographer Physical Relationship Specialty Start Date End Date Singh Baez, DO [address] [place] [address] PCP - General Family Medicine 11/22/14 Oceanographer Physical Relationship Specialty Start Date End Date Singh Baez, DO [address] [place] [address] PCP - General Family Medicine 11/22/14 Oceanographer Physical Relationship Specialty Start Date End Date Singh Baez, DO [address] [place] [address] PCP - General Family Medicine 11/22/14 Oceanographer Physical Relationship Specialty Start Date End Date Singh Baez, DO [address] [place] [address] PCP - General Family Medicine 11/22/14 Oceanographer Physical Relationship Specialty Start Date End Date Singh Baez, DO [address] [place] [address] PCP - General Family Medicine 11/22/14 Oceanographer Physical Relationship Specialty Start Date End Date Singh Baez, DO [address] [place] [address] PCP - General Family Medicine 11/22/14 Oceanographer Physical Relationship Specialty Start Date End Date Singh Baez, DO [address] [place] [address] PCP - General Family Medicine 11/22/14 Oceanographer Physical Relationship Specialty Start Date End Date Singh Baez DO [address] [place] [address] PCP - General Family Medicine 11/22/14 Oceanographer Physical Relationship Specialty Start Date End Date Singh Baez, [address] [place] [address] PCP - General Family Medicine 11/22/14 Oceanographer Physical Relationship Specialty Start Date End Date Singh Baez DO [address] [place] [address] PCP - General Family Medicine 11/22/14 Oceanographer Physical Relationship Specialty Start Date End Date Singh Baez, [address] [place] [address] PCP - General Family Medicine 11/22/14 Oceanographer Physical Relationship Specialty Start Date End Date Singh Baez, [address] [place] [address] PCP - General Family Medicine 11/22/14 Oceanographer Physical Relationship Specialty Start Date End Date Singh Baez, [address] [place] [address] PCP - General Family Medicine 11/22/14 Oceanographer Physical Relationship Specialty Start Date End Date Singh Baez, [address] [place] [address] PCP - General Family Medicine 11/22/14 Oceanographer Physical Relationship Specialty Start Date End Date BaezSingh Atif, DO [address] [place] [address] PCP - General Family Medicine 11/22/14 Oceanographer Physical Relationship Specialty Start Date End Date Singh Baez DO [address] [place] [address] PCP - General Family Medicine 11/22/14 Oceanographer Physical Relationship Specialty Start Date End Date Baez Singh Srivastava, DO [address] [place] [address] PCP - General Family Medicine 11/22/14 FOR RECORDS PERTAINING TO PATIENTS WHO ARE OR HAVE BEEN ENROLLED IN A CHEMICAL DEPENDENCY/SUBSTANCEABUSE PROGRAM, SOME INFORMATION MAY BE OMITTED. This clinical summary was aggregated from multiple sources. Caution should be exercised in using it in the provision of clinical care. This summary normalizes information from multiple sources, and as a consequence, information in this document may materially change the coding, format and clinical context of patient data. In addition, data may be omitted in some cases. CLINICAL DECISIONS SHOULD BE BASED ON THE PRIMARY CLINICAL RECORDS. [facility]. provides no warranty or guarantee of the accuracy or completeness of information in this document.
--- NOTE | 2023-02-16 22:06 | RAD_ITS ---
STUDY: X-RAY - SOFT TISSUE NECK REASON FOR EXAM: Female, 67 years old. fb TECHNIQUE: 2 view(s) of the neck were obtained. COMPARISON: None. FINDINGS: 2 mm parallel linear radiodensities near the arytenoid cartilages. Local curvilinear calcifications also noted at this level posteriorly. Normal visualized nasopharynx, oropharynx, hypopharynx. Normal epiglottis. Normal visualized subglottic tracheal air column. Normal prevertebral soft tissue structures. Normal visualized osseous structures. The soft tissue structures are unremarkable. RAD/Neck for Soft Tissue IMPRESSION: Calcified laryngeal cartilage versus radiodense foreign body. CT would be more sensitive if clinically warranted. Electronically Signed: Milton Chávez MD at 22:42 EST ,
[2023-02-16 22:25] VITALS: BP 153/75; PULSE 79; RESP 18; O2SAT 96
--- NOTE | 2023-02-16 22:34 | ED.VIS.GI ---
HPI HPI - GI History of Present Illness Chief Complaint: Foreign Body Narrative Narrative: Patient presenting with foreign body sensation in her throat. Patient states she was eating an ice cream cone and before she noticed she had eaten part of the cold and noticed that she had eaten a plastic. She was able to dislodge a couple of pieces from the back of her throat. She has no trouble swallowing or breathing. She has some irritation noted to the back of the throat. She has been able to drink pop and water. She is tolerating her own secretions. Patient concerned she might have a foreign body in her throat. PFSH PFSH Home Medications atenolol 50 mg tablet 50 mg PO DAILY 08/22/19 [History Last Taken Unknown] levothyroxine 75 mcg tablet 75 mcg PO DAILY 08/22/19 [History Last Taken Unknown] trazodone 50 mg tablet 50 mg PO QHS 08/22/19 [History Last Taken Unknown] levothyroxine 100 mcg tablet 100 mcg PO QHS 02/16/23 [History Last Taken Unknown] Allergy/AdvReac Type Severity Reaction Status Date / Time fluoxetine AdvReac I NIMESH Verified 02/16/23 20:41 REAL BAD Social History Smoking Status: Never smoker [facility] ED Constitutional Constitutional ED: Denies chills, fever(s) or sweats Eyes Eyes: Denies blurry vision or change in vision ENT ENT ED: Reports other Details: Foreign body sensation in throat ; Denies ear pain Cardiovascular Cardiovascular: Denies chest pain, palpitations or racing heartbeat Respiratory/Chest Respiratory/Chest: Denies cough, dyspnea or sputum Gastrointestinal Gastrointestinal: Denies abdominal pain, constipation, diarrhea, nausea or vomiting Genitourinary Genitourinary ED: Denies dysuria, hematuria or urinary frequency Musculoskeletal Musculoskeletal: Denies arthralgias, myalgias or neck pain Integumentary Denies abscess, Abrasions or rash Neurologic Neurologic: Denies headache(s), paresthesias or weakness Psychiatric Psychiatric: Denies anxiety, depression, suicidal ideation or suicidal thoughts Endocrine Endocrinology: Denies polydipsia or polyuria EXAM Physical Exam Const Vital Signs: 02/16/23 20:40 02/16/23 21:03 02/16/23 22:25 Temperature 97.6 F L Temperature Source Temporal Pulse Rate 60 79 Respiratory Rate 18 18 Respiratory Effort Normal Non-Labored Respiratory Pattern Normal Blood Pressure 173/75 H 153/75 H Blood Pressure Mean 107 101 Pulse Ox 98 96 Oxygen Delivery Method Room Air Positive well nourished General Appearance ED: NAD; Negative for pallor HEENT Reports moist mucous membranes normocephalic and atraumatic Neck no lymphadenopathy and supple Neck Narrative: No stridor Resp normal respiratory effort and clear to auscultation bilaterally Cardio regular rate and regular rhythm Neuro CN's II-XII intact bilaterally Psych mental status grossly normal Skin General Skin Exam: Negative for jaundice or pallor MDM MDM MDM Narrative Medical decision making narrative: Patient presenting with foreign body sensation in the throat. She is not having trouble swallowing or breathing. I do not identify any stridor or dyspnea on examination. I did obtain a soft tissue x-ray of the neck which I do not see any foreign bodies. Radiology is yet to interpret this. I spoke with Dr. Regalado regarding the patient's symptoms and he felt very highly that there is unlikely to be something in the patient's throat if she is not obstructed. After discussion he stated that if the patient could have a barium swallow in the ER that would enough to make sure that her esophagus was open. I discussed with the patient and she declines having this. She states she feels okay to go home. I gave her follow-up with Dr. Regalado and return precautions were discussed. Impression: 1. Globus hystericus Discharge Plan Triage Chief Complaint: Foreign Body ED Provider: George Watkins Dx/Rx/DC Orders Instructions: ED Esophageal Foreign Body, Resolved Prescriptions: No Action trazodone 50 MG tablet 50 mg PO QHS levothyroxine 75 MCG tablet 75 mcg PO DAILY atenolol 50 MG tablet 50 mg PO DAILY levothyroxine 100 mcg tablet 100 mcg PO QHS Primary Care Provider: Singh Baez Referrals: Singh Baez DO [Primary Care Provider] - Adams Regalado DO [Med Staff - Active Staff] - 3-5 Days Disposition Disposition: Home, Self Care Discharge Date/Time: 02/16/23 22:25
== END 2023-02-16 22:25 | disposition home or self-care (01) ==
PROVIDERS: Emergency Provider Student in an Organized Health Care Education/Training Program; PCP Student in an Organized Health Care Education/Training Program; Visit Provider Student in an Organized Health Care Education/Training Program
DX: F45.8 Other somatoform disorders (principal); Z79.899 Other long term (current) drug therapy
CPT/HCPCS: 70360; 99282